=== PATIENT | male | born 1970 | race Caucasian/White ===

== ENCOUNTER 2019-04-10 20:17 | Inpatient (IN) | payer OTHER ==
[~2019-04-10 20:17] MED LIST: ISOVUE-370 76%-LOCM 1 ML ONE
[2019-04-10] MEDS ORDERED: Fentanyl 100 MCG/2 ML VIAL ONE ×2 (21:17→22:03)
[2019-04-10] MEDS ORDERED: Piperacillin/Tazobactam 3.375 GM VIAL ONE (22:03)
--- NOTE | 2019-04-10 22:38 | RAD ---
EXAM: CHEST ONE VIEW HISTORY: Sepsis. Bilateral central line attempts. COMPARISON: None FINDINGS: The cardiac silhouette and pulmonary vasculature is within normal limits. A tunneled right internal j ugular vein hemodialysis catheter is visualized with tip overlying the cavoatrial atrial junction. No pneumothorax or pleural effusion is seen. The lungs are clear. The osseous structures are intact. IMPRESSION: No acute cardiopulmonary process. No pneumothorax or pleural effusion is identified.
[2019-04-10 22:47] LABS: INR-International Normal Ratio 1.5; Prothrombin Time 17.9 SEC (12.0-14.7)
[2019-04-10 22:57] LABS: #Basophils 0.1 thou/uL (0.0-0.2); #Eosinphils 0.2 thou/uL (0.0-0.7); #Lymphocytes 1.8 thou/uL (1.20-3.40); #Monocytes 0.7 thou/uL (0.11-0.59); #Neutrophils 7.1 thou/uL (1.40-6.50); %Basophils 0.6 % (0.0-1.0); %Eosinophils 1.9 % (0.0-10.0); %Lymphocytes 18.5 % (21.0-51.0); %Monocytes 7.4 % (0.0-10.0); %Neutrophils 71.6 % (42.0-75.0); Hemoglobin 7.9 g/dL (14.0-18.0); Hypochromia SLIGHT = 6-15 cells (100X) (0-5/hpf); MDiff Complete? YES; Mean Corpuscular HGB CONC 32.6 g/dL (32.0-36.0); Mean Corpuscular Volume 73.6 fL (78.0-98.0); Mean Platelet Volume 10.6 fL (7.4-10.4); Microcytosis MODERATE=15-30 cells (100X) (0-5/hpf); Platelet Count 248 thou/uL (130-400); Platelet Morphology Comment Appears Adequate; RBC Distribution Width 21.4 % (11.5-14.5)
[2019-04-10 23:01] LABS: ALT (SGPT) 9 U/L (8-55); AST (SGOT) 17 U/L (5-34); Albumin 2.9 g/dL (3.5-5.0); Alkaline Phosphatase 100 U/L (40-110); Anion Gap 16 mmol/L (10-20); BUN (Urea Nitrogen) 59 mg/dL (8.9-20.6); Bilirubin, Total 0.6 mg/dL (0.2-1.2); Calc. Creatinine Clearance 0 mL/min (70-130); Calcium 11.1 mg/dL (7.8-10.44); Carbon Dioxide 24 mmol/L (22-29); Chloride 96 mmol/L (98-107); Estimated GFR-MDRD 10; Globulin 4.3 g/dL (2.4-3.5); Glucose 110 mg/dL (70-105); Protein, Total 7.2 g/dL (6.0-8.3); Sodium 132 mmol/L (136-145)
--- NOTE | 2019-04-10 23:44 | PDOC.FPRHP ---
- History of Present Illness Chief Complaint: CP and SOB History of Present Illness: 48-year-old male with a past medical history of diabetes on insulin, CORNELIUS, peripheral vascular disease, CAD, and hypertension. Patient was recently hospitalized for a cholecystectomy and unable to be extubated post surgery. He was intubated and sedated for quite some time at [facility]. Over this time he developed end stage renal disease, a decubitus ulcer and overall functional decline. Patient was recently diagnosed with a pulmonary embolism and started on Eliquis 5 mg b.i.d.. Today while at retirement he started to develop some chest pain and shortness of breath. He went to the nurse who then gave him nitro without checking his blood pressure. His blood pressure dropped drastically. He was brought to the emergency department where his blood pressures were not stable with systolic of 70s for quite some time. A central line was started. He had evidence of elevated troponins in the setting of ESRD. EKG showed normal sinus rhythm. lactate 2.7, hemoglobin 7.9, hematocrit 24.3. CTA showed right lower lobe pulmonary emboli. Patients blood pressures began to stabilize and to the 110's systolic. Did not require pressors. Pt c/o severe pain over his sacrum where the decubitus is located. - Allergies/Adverse Reactions Allergies Allergy/AdvReac Type Severity Reaction Status Date / Time shellfish derived Allergy Unverified 04/11/19 01:50 - Home Medications Medication Instructions Recorded Confirmed Type Albuterol Sulfate [Proair HFA] 2 puff INH Q6HR PRN 04/11/19 04/11/19 History Albuterol Sulfate [Proair 90 mcg IH 04/11/19 History Respiclick] Amlodipine [Norvasc] 10 mg PO DAILY 04/11/19 04/11/19 History Apixaban [Eliquis] 5 mg PO BID 04/11/19 04/11/19 History Carvedilol [Coreg] 25 mg PO BID 04/11/19 04/11/19 History Docusate Sodium 100 mg PO BID PRN 04/11/19 04/11/19 History Fluticasone Propionate [Flovent 110 mcg INH BID 04/11/19 04/11/19 History HFA 110 mcg] Folic Acid/Vit B Complex and C 04/11/19 History [Nephro-Douglas Tablet] Furosemide [Lasix] 40 mg PO DAILY 04/11/19 04/11/19 History Gabapentin 300 mg PO HS 04/11/19 04/11/19 History Hepatitis B Virus Vaccine/PF 20 mcg IM 04/11/19 History [Engerix-B 20 Mcg/ml Syrn] Insulin NPH Hum/Reg Insulin HM 75 unit SQ BID 04/11/19 04/11/19 History [Novolin 70-30 100 Unit/ml Vial] Ipratropium [place] 0.5 mg NEB Q6HR 04/11/19 04/11/19 History Isosorbide Mononitrate [Isosorbide 30 mg PO DAILY 04/11/19 04/11/19 History Mononitrate ER] Lactulose 10 GM/15ML Oral Yoon 30 gm PO TID PRN 04/11/19 04/11/19 History [Lactulose] Lisinopril 2.5 mg PO DAILY 04/11/19 04/11/19 History Nitroglycerin [Nitrostat] 0.4 mg SL Q5MIN PRN 04/11/19 04/11/19 History PHENYLeph/Pramoxin/Glycr/W.Pet 51 gm RC 04/11/19 History [Hemorrhoidal Cream] Prasugrel [Effient] 10 mg PO DAILY 04/11/19 04/11/19 History Sevelamer Carbonate [Renvela] 800 mg PO TID-WM 04/11/19 04/11/19 History Simethicone [Gas Relief] 80 mg PO 04/11/19 History diphenhydrAMINE [Benadryl] 04/11/19 History - History PMHx: Recent Hx stay from cholecystectomy and sepsis. He now has ESRD and a sacral decubitus ulcer. HTN, CORNELIUS, DM insulin dependent, PVD, VT, CAD PSHx: Cholecystectomy, appendectomy, vein surgery to LE's, stent placements in coronary arteries, r-ankle sx w/ hardware, amputation of R great toe. FHx: Mom: at 50 from [place]. Dad: CVA Social: Quit smoking 20 yrs ago, 40 pack year. No current etoh or drug use. 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 Incarcerated. - Review of Systems General: reports: fever/chills (chills and shivering), fatigue ENT: denies: nasal congestion Respiratory: reports: cough, shortness of breath, exercise intolerance Cardiovascular: reports: chest pain, palpitation, edema Gastrointestinal: denies: nausea, vomiting, diarrhea Skin: denies: rashes Neurological: denies: numbness, syncope - Vital signs BP: 114/61 HR: 92 RR: 23 Temp 98.8 Pox: 100% on RA Wt: 110 kg - Physical Exam Constitutional: NAD, awake, alert and oriented, well developed HEENT: normocephalic and atraumatic, PERRLA, EOMI, conjunctiva clear, no scleral icterus, grossly normal vision, grossly normal hearing, oropharynx clear -HEENT: poor dentition dry mm Neck: supple, FROM, trachea midline, no LAD, no JVD Heart: RRR, normal S1/S2 (distant heart sounds), no murmurs/rubs/gallops, pulses present -Heart: trace LE edema Lungs: CTAB, no respiratory distress, good air movement, no rales/rhonchi, no wheezing, no retractions Abdomen: soft, non-tender, bowel sounds present -Abdomen: surgical scars present Musculoskeletal: normal structure, normal tone, ROM grossly normal Neurological: no focal deficit, CN II-XII intact, normal sensation Skin: no rash/lesions, capillary refill <2 seconds Heme/Lymphatic: no unusual bruising or bleeding Psychiatric: normal mood and affect, good judgment and insight, intact recent and remote memory FMR H&P: Results - Labs Result Diagrams: 04/11/19 06:47 04/11/19 01:46 Lab results: WBC 10.0 thou/uL (4.8-10.8) 04/10/19 22:23 Hgb 7.9 g/dL (14.0-18.0) L 04/10/19 22:23 Hct 24.3 % (42.0-52.0) L 04/10/19 22:23 MCV 73.6 fL (78.0-98.0) L 04/10/19 22:23 Plt Count 248 thou/uL (130-400) 04/10/19 22:23 Neutrophils % 71.6 % (42.0-75.0) 04/10/19 22:23 Sodium 132 mmol/L (136-145) L 04/10/19 22:23 Potassium 4.0 mmol/L (3.5-5.1) 04/10/19 22:23 Chloride 96 mmol/L (98-107) L 04/10/19 22:23 Carbon Dioxide 24 mmol/L (22-29) 04/10/19 22:23 BUN 59 mg/dL (8.9-20.6) H 04/10/19 22:23 Creatinine 5.97 mg/dL (0.7-1.3) H 04/10/19 22:23 Glucose 110 mg/dL (70-105) H 04/10/19 22:23 Lactic Acid 2.7 mmol/L (0.5-2.2) H 04/10/19 22:23 Calcium 11.1 mg/dL (7.8-10.44) H 04/10/19 22:23 Total Bilirubin 0.6 mg/dL (0.2-1.2) 04/10/19 22:23 AST 17 U/L (5-34) 04/10/19 22:23 ALT 9 U/L (8-55) 04/10/19 22:23 Alkaline Phosphatase 100 U/L (40-110) 04/10/19 22:23 CK-MB (CK-2) 2.0 ng/mL (0-6.6) 04/10/19 22:23 Serum Total Protein 7.2 g/dL (6.0-8.3) 04/10/19 22:23 Albumin 2.9 g/dL (3.5-5.0) L 04/10/19 22:23 - Radiology Interpretation CT scan - chest Status: report reviewed by me (RLL Pulmonary Emboli) FMR H&P: A/P - Problem List (1) ESRD (end stage renal disease) on dialysis Current Visit: Yes Status: Acute Code(s): N18.6 - END STAGE RENAL DISEASE; Z99.2 - DEPENDENCE ON RENAL DIALYSIS (2) Symptomatic anemia Current Visit: Yes Status: Acute Code(s): D64.9 - ANEMIA, UNSPECIFIED (3) Pulmonary embolism Current Visit: Yes Status: Acute Code(s): I26.99 - OTHER PULMONARY EMBOLISM WITHOUT ACUTE COR PULMONALE (4) Hypotension Current Visit: Yes Status: Acute (5) CAD (coronary artery disease) Current Visit: Yes Status: Acute Code(s): I25.10 - ATHSCL HEART DISEASE OF [place] CORONARY ARTERY W/O ANG PCTRS (6) CORNELIUS (obstructive sleep apnea) Current Visit: Yes Status: Acute Code(s): G47.33 - OBSTRUCTIVE SLEEP APNEA ( ADULT) (PEDIATRIC) (7) Diabetes mellitus Current Visit: Yes Status: Acute Code(s): E11.9 - TYPE 2 DIABETES MELLITUS WITHOUT COMPLICATIONS - Plan 48 y/o M admitted to tele inpatient for further treatment and evaluation of PE and Hypotension. 1. Pulmonary Embolism - Recent Hx stay in [place] for cholecystectomy left the pt intubated and sedated for extended period of time. - He developed PE, sacral decubitus ulceration, and ESRD over the course of the hx stay. - PE treatment was initialed recently with Eliquis - Continue Eliquis 5 mg BID - Monitor pt closely with continuous cardiac monitoring. - CTA: Right lower lobe Pulmonary Emboli - CXR no acute process, no pneumothorax or effusion. 2. Hypotension - Pt was given Nitro by halfway nurse before checking his BP. - BP dropped drastically to sys 70's - In ED pressures were low and not rising at first, he had a central line placed by ED physician - Pressors were not initiated, as the pt's pressures stabilized sys 110's. 3. Atypical Chest Pain - Most likely etiology from the PE - Continue Eliquis - Trops 0.039, most likely elevated from decreased renal function from ESRD 4. ESRD - HD every T,TR,Sat - Dr. Marina Prepress Technician consulted, appreciate recs. - Cr. 5.97, BUN 59, K 4.0 - New onset since recent Hx. - Been on HD for approximately 2 weeks 5. Sacral Decubitus Ulcer, unable to stage - large, overlying sacrum - from recent hospitalization - Wound care consult 6. Symptomatic anemia - Hgb 6.9 - Transfused 1 unit pRBC - Will recheck 4 hours post transfusion. - Contributing factor to elevated troponins possibly. 7. DM II, uncontrolled, insulin dependent - Aggressive SII - CC diet 8. CORNELIUS - Ordered CPAP QHS 9. Hx of PVD 10. Hx of CAD, with VT - S/P X3 stents - VT last year 11. HTN - Hold home BP medications as pt is hypotensive Code Status: Full code Diet: CC DVT ppx: on eliquis Dispo: Stable, will admit to tele for further eval and treatment of PE and symptomatic anemia. FMR H&P: Upper Level - Pertinent history 48 y/o prisoner PMHx COPD, CHF, HTN, CAD, HLD, DM2, ESRD on HD T,,S presents to the ED with tachycardia and hypotension. He was recently admitted to a hospital in [place] for a month for cholecystitis with subsequent complications including sepsis and need to be intubated, a large sacral decubitus ulcer, and a PE. He reports that he was discharged yesterday and today he started getting some CP and SOB and was given a dose of nitro by the [facility], but after that he was severely hypotensive to the 70s and felt very poorly. Denies abdominal pain, N/V. Reports severe pain in his sacral region. - Pertinent findings BP: 136/68, Pulse: 89, Resp: 20, Temp: 99.3 (Oral), Pain: 10, O2 sat: 100 on Room Air PE: Gen - alert, oriented, NAD HEENT - MMM CV - RRR, no murmurs Lungs - CTAB, no wheezes Abd - nondistended, NTTP Skin - large sacral decubitus ulcer with necrotic area and surrounding purulence. No signs of surrounding erythema Labs: Hb 7.9, MCV 73.6, Na 132, BUN 59, Cr 5.97, GFR 10, PT 17.9, INR 1.5, Trop 0.039, Lactic acid 2.7 - Plan Date/Time: 04/10/19 2344 I, Candy Robins MD, PGY-3, have evaluated this patient and agree with findings/ plan as outlined by internal communications writer resident. Pertinent changes/additions are listed here. 1. Hypotension Pt hypotensive to 90s/50s upon arrival to ED. He had R femoral CVC placed to start pressors, but his BP improved spontaneously to 130s systolic. This could be 2/2 PE's that were noted again on CT scan, vs nitro that was given at [facility], vs sepsis. Sepsis less likely with pt being afebrile and no WBC count , however does have a large sacral decubitus ulcer with some purulence. -Admit to tele -Monitor BP's closely, if drop with MAP < 65 will consider starting pressors -Hold all antihypertensives overnight -Sepsis workup with BCx, procal, Vanc, Zosyn 2. PE Known dx, pt taking eliquis -Will continue eliquis 3. Sacral decubitus ulcer -Will consult wound care, may need debridement -Vanc 4. ESRD on HD Last dialysis Wednesday -Dr. Marina consulted by the ED, will get dialysis tomorrow -Avoid nephrotoxic agents 5. Anemia Unknown if chronic, but pt has CKD so could be related to this. As pt has never been here before don't know baseline. -Check iron studies, B12, folate 6. Elevated troponin Trop 0.039, likely 2/2 ESRD -Will trend 7. DM2 -Continue home insulin -SSI -Accuchecks -Diabetic diet 8. COPD -Continue home meds -Duonebs 9. CHF -Hold antihypertensives overnight, will consider restarting in AM pending BP's 10. HTN -see #9 Dispo: Admit to tele LOS: Likely greater than 2 days Addendum - Attending - Attending Attestation Date/Time: 04/11/19 1437 I personally evaluated the patient and discussed the management with Dr. Maciel I agree with the History, Examination, Assessment and Plan documented above with any addition or exceptions noted below -48-year-old male with a h/o diabetes on insulin, CORNELIUS, peripheral vascular disease, CAD, and hypertension, ESRD on HD sent from [facility] ER due to hypotension. Patient had gone to [facility] with c/o chest pain and was given NTG and subsequently had near- syncopal episode and BP was found to be markedly low. Patient was recently hospitalized for a cholecystectomy complicated by sepsis with prolonged intubation and development of a sacral decubitus ulcer and overall functional decline. Patient was also in the last week diagnosed with a pulmonary embolism and started on Eliquis 5 mg b.i.d. BP eventually responded to fluids and no pressors were needed. PMH/PSH/Meds reviewed and agree with residents documentation. BP 123/62 P105 Exam repeated by me and agree with resident's findings including large sacral decubitus ulcer with blackened central eschar and purulent drainage. Labs: WBC=10.0, H/H=7.9/24.3, Plt= 248, Na= 132, K=4.0, Cl=96, CO2=24, BUN/Cr=59/5.97, Ddfu=640, Lactic acid=2.7, AST/ALT= 17/9, trop I= 0.039 A/P: 1) Hypotension most likely secondary to NGT- now improved; continue to monitor closely, 2) PE- continue eliquis, 3) Sacral decubitus ulcer- unstageable currently due to large eschar- consult wound care and possibly surgery. 4) DM- monitor acucchecks and continue insulin, 5) ESRD- continue HD; consult nephrology.
--- NOTE | 2019-04-10 23:53 | CT ---
CT ANGIOGRAM THORAX WITH IV CONTRAST AND 3D RECONSTRUCTIONS: HISTORY: Abdominal pain post cholecystectomy. Sepsis. Hypotensive. COMPARISON: None. FINDINGS: There is a filling defect seen within a distal right lower lobe segmental as well as involving subseg mental pulmonary arteries compatible with pulmonary emboli. No additional filling defects are seen to suggest additional pulmonary emboli. The thoracic aorta is normal in caliber without evidence of an aortic dissection. Mild vascular calci fications are seen in the thoracic aorta. There are dense and significant vascular calcifications inv olving the coronary arteries. A tunneled right internal jugular vein hemodialysis catheter is noted in place with the tip at the ca voatrial junction. A tiny pericardial effusion is present. There is scattered atelectasis within the lower lobes bilaterally however no consolidation or pleural effusion is present. There is no evidence of lymphadenopathy. IMPRESSION: Right lower lobe pulmonary emboli. The above findings were discussed with Dr. Horvath in the emergency department on 04/10/2019 at 234 4 hours. CODE CR POS: OFF
--- NOTE | 2019-04-11 00:09 | CT ---
CT ABDOMEN AND PELVIS WITH IV CONTRAST: HISTORY: Abdominal pain post cholecystectomy. Sepsis. Sacral decubitus ulceration. FINDINGS: There is a tiny pericardial effusion. Vascular calcification is seen in the coronary arteries as well as involving the abdominal aorta and iliac arteries. There is minimal bibasilar atelectasis. Surgical clips are seen in the gallbladder fossa with a small amount of fluid. The area of fluid jenni ures 4.1 cm, which is likely related to postoperative changes. No defined enhancing wall or gas is se en in this region to suggest that this represents an abscess. There is a low density focus seen within the body of the spleen which is difficult to characterize on this exam. This measures 2.2 cm. This did appear to be present on a CTA of the thorax obtained at [facility] on 05/28/2018. The exact etiology is uncertain. This is difficult to further ch aracterize. The pancreas and bilateral adrenal glands have a normal CT appearance. No renal lesions are appreciat ed. The urinary bladder has a normal appearance. Loops of small bowel are normal in caliber. The appendix is not visualized but there are no secondary signs to suggest appendicitis. No enlarged lymph nodes are seen by CT size criteria. A few mildly prominent lymph nodes are seen in the periportal region. There is subcutaneous emphysema seen in the subcutaneous soft tissues posterior and just inferior to the coccyx, likely related to the patient's known decubitus ulceration. No adjacent fluid collection is seen to suggest an abscess. Small nonspecific heterogeneity in the gluteal musculature with increa sed density seen in the adipose soft tissues in the gluteal region probably related to calcification. A right common femoral vein central venous catheter is noted in place with the tip near the most prox imal external iliac vein. Degenerative changes are seen in the spine. Definite osseous destruction involving the coccyx is diff icult to determine based on this exam however if there is concern for osteomyelitis involving the ryan cyx MRI would be a better study of choice. IMPRESSION: 1. Post cholecystectomy changes with a small amount of fluid within the gallbladder fossa measuring 4 cm. No defined enhancing chang are seen, and there is no gas seen within the collection. This may b e related to postoperative changes as opposed to infection. A follow-up evaluation is recommended as clinically indicated. 2. Nonspecific hypodense lesion within the body of the spleen measuring 2.2 cm. This did appear to be present on a prior CTA chest obtained at the [facility] in 2018. 3. Decubitus ulceration in the soft tissues just posterior and inferior to the level of the coccyx. N o fluid collection is seen. Definitive osseous destruction is not identified; however, if there is a concern for osteomyelitis, MRI would be a better study of choice for further evaluation. POS: OFF
[2019-04-11] MEDS ORDERED: Fentanyl 100 MCG/2 ML VIAL ONE (01:16)
[2019-04-11] MEDS ORDERED: Acetaminophen 325 MG TAB PO PRN (01:35)
[2019-04-11] MEDS ORDERED: Bisacodyl 5 MG TAB PO PRN (01:35)
[2019-04-11] MEDS ORDERED: Ondansetron ODT 4 MG TAB PO PRN (01:35)
[2019-04-11] MEDS ORDERED: Dextrose 5% in Water 1,000 ML IV PRN (01:48)
[2019-04-11] MEDS ORDERED: Dextrose 50% Abboject 50 ML SYRINGE SLOW IVP PRN (01:48)
[2019-04-11 02:00] LABS: #Eosinphils 0.2 thou/uL (0.0-0.7); #Lymphocytes 1.7 thou/uL (1.20-3.40); #Monocytes 0.7 thou/uL (0.11-0.59); #Neutrophils 6.6 thou/uL (1.40-6.50); %Basophils 0.3 % (0.0-1.0); %Eosinophils 2.3 % (0.0-10.0); %Monocytes 7.9 % (0.0-10.0); %Neutrophils 71.5 % (42.0-75.0); Hemoglobin 6.9 g/dL (14.0-18.0); Mean Corpuscular HGB CONC 32.7 g/dL (32.0-36.0); Mean Corpuscular Volume 73.4 fL (78.0-98.0); Mean Platelet Volume 10.4 fL (7.4-10.4); Platelet Count 232 thou/uL (130-400); RBC Distribution Width 21.6 % (11.5-14.5); Red Blood Cell (RBC) Count 2.86 mill/uL (4.70-6.10); White Blood Cell (WBC) Count 9.3 thou/uL (4.8-10.8)
[2019-04-11] MEDS ORDERED: HOLD VANCOMYCIN FOR LEVEL >20 FS SCH (02:00)
[2019-04-11] MEDS ORDERED: Vancomycin HCl 1.25 GM in Sodium Chloride 0.9% 250 ML 250 ML IVPB SCH (02:00)
[2019-04-11] MEDS ORDERED: Vancomycin HCl 1.5 GM in Sodium Chloride 0.9% 250 ML 300 ML IVPB SCH (02:00)
[2019-04-11] MEDS ORDERED: Vancomycin HCl 750 MG in Sodium Chloride 0.9% 250 ML 250 ML IVPB SCH (02:00)
[2019-04-11 02:12] LABS: Iron 18 ug/dL (65-175); Iron Binding Capacity, Total 158 mcg/dL (261-462)
[2019-04-11 02:15] LABS: ALT (SGPT) 10 U/L (8-55); AST (SGOT) 18 U/L (5-34); Albumin 2.7 g/dL (3.5-5.0); Alkaline Phosphatase 95 U/L (40-110); Anion Gap 20 mmol/L (10-20); BUN (Urea Nitrogen) 63 mg/dL (8.9-20.6); Bilirubin, Total 0.6 mg/dL (0.2-1.2); Calc. Creatinine Clearance 0 mL/min (70-130); Carbon Dioxide 19 mmol/L (22-29); Chloride 96 mmol/L (98-107); Estimated GFR-MDRD 10; Globulin 4.4 g/dL (2.4-3.5); Glucose 118 mg/dL (70-105); Potassium 4.1 mmol/L (3.5-5.1); Protein, Total 7.1 g/dL (6.0-8.3); Sodium 131 mmol/L (136-145)
[2019-04-11 02:17] LABS: Troponin I 0.014 ng/mL (< 0.028)
[2019-04-11 02:24] LABS: Lactic Acid 3.3 mmol/L (0.5-2.2)
[2019-04-11] MEDS ORDERED: Morphine 2 MG/ML SYRINGE ONE ×2 (03:05→07:38)
[2019-04-11] MEDS: Morphine 2 MG/ML SYRINGE SLOW IVP PRN ×3 (03:10→20:46)
[2019-04-11 04:37] LABS: Ferritin Greater than 1683.00 ng/mL (22-322)
[2019-04-11 05:25] LABS: Troponin I 0.035 ng/mL (< 0.028)
[2019-04-11 07:06] LABS: #Basophils 0.1 thou/uL (0.0-0.2); #Eosinphils 0.2 thou/uL (0.0-0.7); #Lymphocytes 1.3 thou/uL (1.20-3.40); #Monocytes 0.7 thou/uL (0.11-0.59); #Neutrophils 7.4 thou/uL (1.40-6.50); %Basophils 0.6 % (0.0-1.0); %Eosinophils 2.5 % (0.0-10.0); %Lymphocytes 13.6 % (21.0-51.0); %Monocytes 7.5 % (0.0-10.0); %Neutrophils 75.8 % (42.0-75.0); Hemoglobin 7.8 g/dL (14.0-18.0); Mean Corpuscular HGB CONC 32.9 g/dL (32.0-36.0); Mean Corpuscular Hemoglobin 24.9 pg (27.0-31.0); Mean Corpuscular Volume 75.8 fL (78.0-98.0); Mean Platelet Volume 10.4 fL (7.4-10.4); Platelet Count 226 thou/uL (130-400); RBC Distribution Width 21.7 % (11.5-14.5); Red Blood Cell (RBC) Count 3.12 mill/uL (4.70-6.10); White Blood Cell (WBC) Count 9.7 thou/uL (4.8-10.8)
[2019-04-11 07:41] LABS: Vancomycin, Random 23.4 ug/mL (See Comment)
[2019-04-11 08:25] LABS: Troponin I 0.048 ng/mL (< 0.028)
[2019-04-11] MEDS ORDERED: Famotidine 20 MG TAB ONE (08:34)
[2019-04-11] MEDS: Famotidine 20 MG TAB PO SCH (09:54)
[2019-04-11] MEDS: Apixaban 5 MG TAB PO SCH ×2 (09:54→20:42)
[2019-04-11] MEDS ORDERED: Heparin 10,000 UNITS/1 ML VIAL ONE (10:00)
[2019-04-11] MEDS ORDERED: Morphine 2 MG/ML SYRINGE SLOW IVP SCH (11:30)
[2019-04-11] MEDS ORDERED: Simethicone Chewable 80 MG TAB PO PRN (11:35)
[2019-04-11] MEDS ORDERED: PROVENTIL INHALER 6.7 G (200 INHALATIONS) INH PRN (11:35)
[2019-04-11] MEDS ORDERED: Docusate 100 MG CAP PO PRN (11:35)
[2019-04-11 11:39] LABS: Troponin I 0.039 ng/mL (< 0.028)
--- NOTE | 2019-04-11 11:45 | CON ---
DATE OF CONSULTATION: REASON FOR CONSULT: End-stage renal disease, on maintenance hemodialysis. HISTORY OF PRESENT ILLNESS: This is a very pleasant 48-year-old gentleman, who presented to the hospital for chest pain and shortness of breath. The patient has dialysis on Wednesday, , and Wednesday. The patient had imaging done. The patient denies any nausea, vomiting, or chest pain. PAST MEDICAL HISTORY: Significant for cholecystectomy, sepsis, ESRD, decubitus ulcer, hypertension, diabetes mellitus, cholecystectomy, appendectomy, lower extremity stent placement, and coronary artery disease stent placement. FAMILY HISTORY: Negative for ESRD. ALLERGIES: REVIEWED. MEDICATIONS: Home medications list reviewed. Hospital medications list reviewed. REVIEW OF SYSTEMS: Fifteen-point review of system was performed and negative, except for positives noted above. GENERAL: HEAD: NECK: No swelling or lumps. NOSE: No epistaxis or discharge. EYES: No diplopia or pain. RESPIRATORY: CARDIOVASCULAR: GASTROINTESTINAL: /INFORMATION SYSTEMS MANAGER: MUSCULOSKELETAL: No joint pain. NEUROPSYCHIATRIC SYSTEMS: No suicidal ideation. No ideation. SKIN: Denies any rash or ulcer. CONSTITUTIONAL: No fever or chills. PHYSICAL EXAMINATION: CONSTITUTIONAL: On exam, the patient is awake and alert. VITAL SIGNS: Afebrile, pulse 70, breathing 16, and blood pressure 130/70. GENERAL APPEARANCE AND MENTAL STATUS: Fair. HEAD/NECK: Normocephalic. Atraumatic. EYES: EOMI. No deformity. EARS: Clear. No ulcers. NOSE: Intact. No lesions. MOUTH: Clear. No discharge. THROAT: Clear. No exudate. LUNGS: Clear. No crackles. CARDIAC: S1, S2. No rub. ABDOMEN: Benign. Bowel sounds positive. GENITALIA/RECTUM: Busby absent. BACK/EXTREMITIES: Edema 0+. NEUROLOGICAL: Alert and motor intact. SKIN: LYMPHATICS: LABORATORY DATA: Reviewed. ASSESSMENT AND PLAN: 1. Stage 3 chronic kidney disease. Plan dialysis. 2. Hypertension, stable. 3. Anemia, stable. 4. Medications based on glomerular filtration rate are appropriate. Job ID: [id number]
[2019-04-11 12:10] LABS: Hep B Surf Ag Non-Reactive S/CO (NonReactive)
[2019-04-11] MEDS: Piperacillin/Tazobactam 2.25 GM in Sodium Chloride 0.9% 100 ML IVPB SCH ×2 (14:00→21:00)
[2019-04-11] MEDS: Sevelamer Carbonate 800 MG TAB PO SCH ×2 (14:38→18:39)
[2019-04-11 17:46] LABS: Hypochromia SLIGHT = 6-15 cells (100X) (0-5/hpf); Microcytosis SLIGHT = 6-15 cells (100X) (0-5/hpf); Ovalocytes SLIGHT = 2-5 cells (100X) (0-1/hpf); Polychromasia SLIGHT = 2-3 cells (100X) (0-2/hpf)
[2019-04-11 17:47] LABS: Anisocytosis MODERATE=16-30 cells (100X) (0-5/hpf); Schistocytes SLIGHT = 2-5 cells (100X) (0-1/hpf)
[2019-04-11 17:48] LABS: Platelet Morphology Comment Appears Adequate; Spherocytes SLIGHT = 1-5 cells (100X) (None Seen)
[2019-04-11 17:49] LABS: Burr Cells SLIGHT = 2-5 cells (100X) (0-1/hpf)
[2019-04-11] MEDS: HumaLOG 300 UNITS/3 ML VIAL SC PRN (18:39)
[2019-04-11] MEDS: Gabapentin 300 MG CAP PO SCH (20:42)
[2019-04-11] MEDS ORDERED: Fluticasone Propionate HFA 110 MCG AER INH SCH (21:00)
[2019-04-11] MEDS ORDERED: Mometasone 100 MCG HFA INHALER INH SCH (21:00)
[2019-04-12] MEDS: Morphine 2 MG/ML SYRINGE SLOW IVP PRN ×2 (01:10→05:14)
[2019-04-12] MEDS: Piperacillin/Tazobactam 2.25 GM in Sodium Chloride 0.9% 100 ML IVPB SCH ×3 (05:09→21:48)
--- NOTE | 2019-04-12 06:18 | PDOC.FM ---
- Subjective Subjective: This morning pt is doing well, eagerly awaiting debridement. States pain is not well controlled with q4h morphine and has breakthrough pain. Denies CP, fever/ chills, n/v, diarrhea/constipation. Did get up to use bathroom yesterday and had sacral pain and numbness. Tolerating PO well prior to NPO for surgery. - Objective MAR Reviewed: Yes Vital Signs & Weight: Vital Signs (12 hours) Temp Pulse Resp BP Pulse Ox 04/12/19 04:00 98 F 88 18 143/77 H 99 04/12/19 01:00 98 F 90 18 145/82 H 99 04/11/19 20:00 97 04/11/19 19:21 98.7 F 110 H 18 145/79 H 97 04/11/19 18:48 102 H 12 Weight Weight 117.934 kg Result Diagrams: 04/12/19 06:13 04/12/19 06:13 Phys Exam - Physical Examination Constitutional: NAD (resting comfortably) HEENT: PERRLA, moist MMs Neck: supple Respiratory: no wheezing, no rales, no rhonchi, clear to auscultation bilateral Cardiovascular: RRR, no significant murmur, no rub Gastrointestinal: soft, non-tender, no distention, positive bowel sounds Musculoskeletal: no edema Neurological: non-focal Psychiatric: normal affect, A&O x 3 Deviation from normal: sacral decubitus ulcer Dx/Plan (1) CAD (coronary artery disease) Code(s): I25.10 - ATHSCL HEART DISEASE OF [place] CORONARY ARTERY W/O ANG PCTRS Status: Acute (2) Diabetes mellitus Code(s): E11.9 - TYPE 2 DIABETES MELLITUS WITHOUT COMPLICATIONS Status: Acute (3) ESRD (end stage renal disease) on dialysis Code(s): N18.6 - END STAGE RENAL DISEASE; Z99.2 - DEPENDENCE ON RENAL DIALYSIS Status: Acute (4) Pulmonary embolism Code(s): I26.99 - OTHER PULMONARY EMBOLISM WITHOUT ACUTE COR PULMONALE Status : Acute (5) Symptomatic anemia Code(s): D64.9 - ANEMIA, UNSPECIFIED Status: Acute - Plan Plan: 48 y/o M h/o PE, ESRD on HD, CHF, DMII admitted to medical inpatient for further treatment and evaluation of PE and Hypotension and decubitus ulcer. #Sacral Decubitus Ulcer, unable to stage - large, overlying sacrum. Large eschar - Push and drainage fro edges, TTP, no surrounding erythema - Will cont vanc and zosyn - elevated ESR and CRP - MRI pelvis for eval of osteo pending - Dr. Allred, gen surg, debridement today, apprec recs and assistance - Wound care consult - pain control with morphine q4h with q2h prn #Symptomatic anemia, stable - Hgb 6.9 -> 7.8 - s/p 1 unit pRBC - no s/s acute blood loss, VSS, will continue to monitor #Pulmonary Embolism - Recent Hx stay in [place] for cholecystectomy, pt intubated and sedated for extended period of time. - Developed PE, sacral decubitus ulceration over the course of stay. - PE treatment was initialed recently with Eliquis, will continue 5 mg BID - CTA: Right lower lobe Pulmonary Emboli - CXR no acute process, no pneumothorax or effusion. #Hypotension, resolved - Pt was given Nitro by long-term nurse. BP dropped drastically to sys 70's - In ED pressures were low and not rising at first, he had a right femoral central line placed by ED physician - Pressors were not initiated, as the pt's pressures stabilized sys 110's. - currently pt hypertensive #Hypercalcemia and hypoalbumin - likely 2/2 ESRD - will check PTH, prealb, vit d, and phos #HTN - initially held 2/2 hypotension, will restart slowly with coreg and monitor - cont to hold imdur, lisinopril, and norvasc - will cont to monitor #Atypical Chest Pain - Most likely etiology from the PE - Continue Eliquis - Indeterminate trops 2/2 ESRD, trended and stable, no acute AKG changes # ESRD on HD - HD every T,TR,Sat. On HD since 2017 - Dr. Marina Shank Sorter consulted, will cont dialysis, appreciate recs. - Monitoring lytes #DM II, insulin dependent - Hyperglycemia protocol, SSI, ACHS accuchecks - CC diet #CORNELIUS - CPAP QHS #Hx of CAD, with OR - S/P X3 stents - OR in 2018 - cont effient, renvela and lasix Code Status: Full code Diet: CC DVT ppx: on eliquis Dispo: Stable, admitted to medical inpatient. Debridement today. MRI pending. Cont abx. Anticipate hospitalization 4-5 days. Addendum - Attending - Attending Attestation Date/Time: 04/12/19 1157 I personally evaluated the patient and discussed the management with Dr. Brunilda Navarro I agree with the History, Examination, Assessment and Plan documented above with any addition or exceptions noted below. Patient to OR this AM for debridement sacral pressure ulcer. Patient for continued dialysis IV vancomycin/Zosyn pending culture results and proceed with MRI r/o osteomyelitis. For continued HD and rec d/c femoral line if no longer needed. Patient with ESRD on Apixaban 5 mg bid will check XA activity level to trend for continued treatment of PE.
[2019-04-12 07:01] LABS: #Basophils 0.1 thou/uL (0.0-0.2); #Eosinphils 0.3 thou/uL (0.0-0.7); #Lymphocytes 1.4 thou/uL (1.20-3.40); #Monocytes 0.9 thou/uL (0.11-0.59); #Neutrophils 5.9 thou/uL (1.40-6.50); %Basophils 0.7 % (0.0-1.0); %Eosinophils 3.4 % (0.0-10.0); %Lymphocytes 16.5 % (21.0-51.0); %Monocytes 10.3 % (0.0-10.0); %Neutrophils 69.1 % (42.0-75.0); Hemoglobin 7.6 g/dL (14.0-18.0); Mean Corpuscular HGB CONC 32.5 g/dL (32.0-36.0); Mean Corpuscular Hemoglobin 24.5 pg (27.0-31.0); Mean Corpuscular Volume 75.5 fL (78.0-98.0); Mean Platelet Volume 10.1 fL (7.4-10.4); Platelet Count 243 thou/uL (130-400); RBC Distribution Width 20.8 % (11.5-14.5); Red Blood Cell (RBC) Count 3.09 mill/uL (4.70-6.10); White Blood Cell (WBC) Count 8.5 thou/uL (4.8-10.8)
[2019-04-12 07:14] LABS: ALT (SGPT) 11 U/L (8-55); AST (SGOT) 17 U/L (5-34); Albumin 2.8 g/dL (3.5-5.0); Alkaline Phosphatase 103 U/L (40-110); Anion Gap 16 mmol/L (10-20); BUN (Urea Nitrogen) 31 mg/dL (8.9-20.6); Bilirubin, Total 0.5 mg/dL (0.2-1.2); Calc. Creatinine Clearance 40 mL/min (70-130); Calcium 10.7 mg/dL (7.8-10.44); Carbon Dioxide 27 mmol/L (22-29); Chloride 101 mmol/L (98-107); Estimated GFR-MDRD 17; Globulin 4.4 g/dL (2.4-3.5); Glucose 122 mg/dL (70-105); Potassium 3.5 mmol/L (3.5-5.1); Protein, Total 7.2 g/dL (6.0-8.3); Sodium 140 mmol/L (136-145)
[2019-04-12] MEDS: Sevelamer Carbonate 800 MG TAB PO SCH ×3 (07:28→16:14)
[2019-04-12] MEDS: Carvedilol 25 MG TAB PO SCH ×2 (07:28→20:34)
[2019-04-12] MEDS: Furosemide 40 MG TAB PO SCH (07:29)
[2019-04-12] MEDS: Famotidine 20 MG TAB PO SCH (07:29)
[2019-04-12] MEDS: Prasugrel 10 MG TAB PO SCH (07:29)
[2019-04-12] MEDS: Folic Acid/Vit B Comp W-C PO SCH (07:30)
[2019-04-12] MEDS: Apixaban 5 MG TAB PO SCH ×2 (07:30→20:34)
[2019-04-12 07:36] LABS: Hypochromia MODERATE=16-30 cells (100X) (0-5/hpf); MDiff Complete? YES; Microcytosis MODERATE=15-30 cells (100X) (0-5/hpf); Ovalocytes SLIGHT = 2-5 cells (100X) (0-1/hpf); Platelet Morphology Comment Appears Adequate; Polychromasia SLIGHT = 2-3 cells (100X) (0-2/hpf)
--- NOTE | 2019-04-12 08:38 | PRG ---
DATE OF SERVICE: 04/12/2019 SUBJECTIVE: A 48-year-old gentleman being seen for end-stage renal disease. The patient denied nausea, vomiting, or chest pain. OBJECTIVE: CONSTITUTIONAL: The patient is awake and alert. VITAL SIGNS: Pulse 87, breathing 16, and blood pressure 115/68. GENERAL APPEARANCE AND MENTAL STATUS: Fair. HEAD/NECK: Normocephalic. Atraumatic. EYES: EOMI. No deformity. EARS: Clear. No ulcers. NOSE: Intact. No lesions. MOUTH: Clear. No discharge. THROAT: Clear. No exudate. LUNGS: Clear. No crackles. CARDIAC: S1, S2. No rub. ABDOMEN: Benign. Bowel sounds positive. GENITALIA/RECTUM: Busby absent. BACK/EXTREMITIES: Edema 0+. NEUROLOGICAL: Alert and motor intact. SKIN: LYMPHATICS: LABORATORY DATA: Hemoglobin 7.6. ASSESSMENT AND PLAN: Stage 3 chronic kidney disease, plan dialysis tomorrow. Hypertension, stable. Anemia, recommend transfusion of 1 unit with dialysis tomorrow. Job ID: [id number]
[2019-04-12] MEDS ORDERED: Fentanyl 100 MCG/2 ML VIAL ONE ×3 (08:48→11:03)
[2019-04-12] MEDS ORDERED: Amlodipine 10 MG TAB PO SCH (09:00)
[2019-04-12] MEDS ORDERED: Morphine 2 MG/ML SYRINGE SLOW IVP PRN (09:34)
[2019-04-12] MEDS: Morphine 2 MG/ML SYRINGE SLOW IVP SCH ×4 (10:00→20:33)
[2019-04-12] MEDS ORDERED: PHENYLEPHRINE-NS 100 MCG/ML 10 ML SYRINGE ONE ×2 (10:23→16:22)
[2019-04-12] MEDS ORDERED: Acetaminophen/Codeine 30-300mg Tablet PO PRN (10:30)
[2019-04-12] MEDS ORDERED: Promethazine HCl 25 MG/ML VIAL IM PRN (10:30)
[2019-04-12] MEDS ORDERED: HYDROmorphone 2 MG/ML VIAL SLOW IVP PRN (10:30)
[2019-04-12] MEDS ORDERED: PACU-Morphine 4MG/ML VIAL SLOW IVP PRN (10:30)
[2019-04-12] MEDS ORDERED: Promethazine HCl 25 MG/ML VIAL SLOW IVP PRN (10:30)
[2019-04-12] MEDS ORDERED: Ondansetron HCl/PF 4 MG/2 ML Vial IVP PRN (10:30)
[2019-04-12] MEDS ORDERED: Promethazine HCl 25 MG/ML VIAL ONE (11:32)
[2019-04-12] MEDS ORDERED: Ondansetron PF 4 MG/2 ML Vial ONE (11:33)
--- NOTE | 2019-04-12 11:43 | OP ---
DATE OF PROCEDURE: 04/12/2019 PREOPERATIVE DIAGNOSIS: Sacral decubitus ulcer. POSTOPERATIVE DIAGNOSIS: A 12 x 16 x 3.2 cm stage 4 sacral decubitus ulcer. PROCEDURE PERFORMED: Excisional debridement of 12 x 16 x 3.2 cm stage 4 sacral decubitus ulcer. ANESTHESIA: General endotracheal. ESTIMATED BLOOD LOSS: 50 mL. FLUIDS GIVEN: 250 mL crystalloids. COUNTS: Sponge and instrument counts were verified as correct x2. COMPLICATIONS: None apparent at the time of operation. INDICATIONS FOR OPERATION: A 48-year-old man with history of chronic kidney failure, dialysis dependent, who has developed multiple decubitus. Large sacral decubitus ulcers noted with large eschar formation. There was some purulence around the wound edges. Decision was made to bring the patient to the operating room for excisional debridement. Findings are consistent with a stage 4, 12 x 16 x 3.2 cm infected sacral decubitus ulcer. DESCRIPTION OF PROCEDURE: Informed consent was obtained from the patient, who was brought to the operating room and placed in supine position. Following general anesthesia, the patient was placed in a prone yonatan-knife position. Both gluteal folds and sacrum were widely and sterilely prepped and draped in usual fashion. The sacral decubitus ulcer was elliptically incised using a scalpel, alternated with cautery and Mueller scissors. Necrotic tissues were sharply debrided down to muscle. There was a necrotic muscle also, which were sharply debrided down to viable tissue. Bleeding points were controlled using cautery. Wound bed was then irrigated with saline. Wound was temporary closed using wound VAC. The patient tolerated the operation without any apparent complication and was returned to the recovery room in satisfactory condition. Job ID: [id number]
--- NOTE | 2019-04-12 12:03 | CON ---
DATE OF CONSULTATION: 04/11/2019 REQUESTING PHYSICIAN: Dr. Cedric Navarro. HISTORY OF PRESENT ILLNESS: A 48-year-old man, an inmate of a correctional facility. The patient was brought to the emergency department yesterday with complaint of chest pain and shortness of breath. Acute coronary syndrome has been excluded. Workup however revealed a possible small pulmonary embolus. Additionally, physical examination revealed a large sacral decubitus ulcer, for which I have been asked to evaluate the patient. At the time of my evaluation, the patient just completed his dialysis treatment. He denied any abdominal pain, fever, or chills. PAST MEDICAL HISTORY: Significant for end-stage renal disease, dialysis dependent; severe coronary artery disease; peripheral vascular disease; type 2 diabetes mellitus; as well as essential hypertension. PAST SURGICAL HISTORY: Pertinent for coronary angiography with stenting, the patient has also had lower extremity angiography with stenting. He is recently status post laparoscopic cholecystectomy, which was complicated by postoperative respiratory failure requiring prolonged mechanical ventilator support. Additionally, he is status post appendectomy. SOCIAL HISTORY: He is an inmate of a correctional facility. He has approximately greater than [id number] cigarette smoking. He has not smoked over the last 20 years nevertheless. He denies any ethanol or illicit drug abuse, although he previously indulged in intravenous methamphetamine. PREHOSPITALIZATION MEDICATIONS: Include; 1. Isosorbide mononitrate 30 mg p.o. daily. 2. Insulin NPH 75 units subcutaneously b.i.d. 3. Lactulose 30 mg p.o. t.i.d. 4. Lisinopril 2.5 mg p.o. daily. 5. Amlodipine 10 mg p.o. daily. 6. Coreg 25 mg p.o. b.i.d. 7. Eliquis 5 mg p.o. b.i.d. 8. Gabapentin 300 mg p.o. at bedtime. 9. Renvela 800 mg p.o. t.i.d. 10. Furosemide 40 mg p.o. daily. ALLERGIES: THE PATIENT DENIES ANY KNOWN DRUG ALLERGIES. REVIEW OF SYSTEMS: Ten-point review of systems essentially unremarkable except as stated in past medical history and chief complaint. PHYSICAL EXAMINATION: GENERAL: Reveals a 48-year-old man, who is awake and alert, complaining of generalized pain especially in his sacrum and chest wall. He otherwise appears to be in no acute distress at the time of my evaluation. VITAL SIGNS: Include blood pressure 122/69, pulse 103, respiratory rate is 18, temperature 99.5 degrees Fahrenheit, and oxygen saturation 93% on room air. HEENT: Reveals normocephalic and atraumatic. HEART: Reveals regular rate with mild sinus tachycardia. No murmurs or gallops auscultated. LUNGS: Clear to auscultation bilaterally. Breathing, regular and nonlabored. ABDOMEN: Soft, nontender, nondistended. EXTREMITIES: Reveals 2+ radial and pedal pulses bilaterally. He has ulceration of the medial aspect of the index finger on the right. He also has ulceration of the palmar surface of the right hand with some dry eschar present. He has cellulitis of the lateral right ankle and a dry eschar of the right heel. There is also a dry eschar of the left heel. At the sacrum, there is a 12 x 15 cm sacral decubitus ulcer with large dry eschar. There is gross purulence from the edges of the wound. LABORATORY FINDINGS: Includes a CBC with 9700 white blood cells, hemoglobin and hematocrit 7.8 and 23.7 respectively, platelet count is 226,000. Metabolic profile; sodium 131, potassium 4.1, chloride is 96, bicarb 19, BUN 63, creatinine is 6.07, glucose 118 and this is predialysis. IMPRESSION: 12 x 15 cm sacral decubitus ulcer. PLAN: 1. Excisional debridement of ulcer, at which time we will stage the wound. 2. Above findings and plan have been discussed with the patient. 3. I advised the patient of the risks and benefits of proposed surgery to include, but not limited to bleeding, infection, need for additional surgery. 4. I advised the patient that there is a possibility that this wound will heal in a delayed fashion given his comorbidities. 5. Above findings and plan discussed with the patient, who indicates understanding information given. 6. I have answered his questions. Job ID: [id number]
[2019-04-12] MEDS: Acetaminophen/Codeine 30-300mg Tablet PO PRN (14:08)
[2019-04-12] MEDS ORDERED: FLU VACC QS2019-20(6MOS UP)/PF 60 MCG/0.5 ML SYRINGE IM ONE (15:00)
[2019-04-12 15:15] LABS: Phosphorus 6.5 mg/dL (2.3-4.7)
[2019-04-12] MEDS ORDERED: ePHEDrine 50 MG/ML VIAL ONE (16:22)
[2019-04-12] MEDS ORDERED: Lidocaine 1% PF 5 ML VIAL ONE (16:22)
[2019-04-12] MEDS ORDERED: Esmolol 100 MG/10 ML VIAL ONE (16:22)
[2019-04-12] MEDS ORDERED: PROPOFOL 200 MG/20 ML VIAL ONE (16:22)
[2019-04-12] MEDS ORDERED: Rocuronium Bromide 10 MG/ML (10ML VIAL) ONE (16:22)
[2019-04-12] MEDS ORDERED: Glycopyrrolate 0.2 MG/ML 5 ML SYRINGE ONE (16:22)
[2019-04-12] MEDS: Mometasone 100 MCG HFA INHALER INH SCH (20:07)
[2019-04-12] MEDS: Gabapentin 300 MG CAP PO SCH (20:34)
[2019-04-13] MEDS: Morphine 2 MG/ML SYRINGE SLOW IVP SCH ×6 (00:27→21:20)
[2019-04-13] MEDS: Piperacillin/Tazobactam 2.25 GM in Sodium Chloride 0.9% 100 ML IVPB SCH ×3 (05:14→21:22)
[2019-04-13] MEDS: HumaLOG 300 UNITS/3 ML VIAL SC PRN ×4 (05:23→21:39)
--- NOTE | 2019-04-13 05:51 | PDOC.FM ---
- Subjective Subjective: Doing well this morning. Tolerated debridement well without any acute events. Denies any fever/chills, Cp, SOB, n/v, d/c. He is tolerating PO well. Moderate sacral pain but much better control with pain regime. Getting dialysis this morning. - Objective MAR Reviewed: Yes Vital Signs & Weight: Vital Signs (12 hours) Temp Pulse Resp BP Pulse Ox 04/13/19 00:10 98.6 F 76 20 132/72 04/12/19 20:00 98.9 F 81 18 114/65 97 Weight Admit Weight 117.934 kg Weight 117.934 kg I&O: 04/11/19 04/12/19 04/13/19 06:59 06:59 06:59 Intake Total 570 1000 Output Total 200 Balance 570 800 Result Diagrams: 04/13/19 05:20 04/13/19 05:20 Phys Exam - Physical Examination Constitutional: NAD (resting comfortably) HEENT: PERRLA, moist MMs Neck: supple Respiratory: no wheezing, no rales, no rhonchi, clear to auscultation bilateral Cardiovascular: RRR, no significant murmur, no rub Gastrointestinal: soft, non-tender, no distention, positive bowel sounds sacral wound vac in place - serosanguinous fluid Neurological: non-focal, normal sensation, moves all 4 limbs Psychiatric: normal affect, A&O x 3 Deviation from normal: multiple healing ulcers on hands and feet Dx/Plan (1) CAD (coronary artery disease) Code(s): I25.10 - ATHSCL HEART DISEASE OF [place] CORONARY ARTERY W/O ANG PCTRS Status: Acute (2) Diabetes mellitus Code(s): E11.9 - TYPE 2 DIABETES MELLITUS WITHOUT COMPLICATIONS Status: Acute (3) ESRD (end stage renal disease) on dialysis Code(s): N18.6 - END STAGE RENAL DISEASE; Z99.2 - DEPENDENCE ON RENAL DIALYSIS Status: Acute (4) Pulmonary embolism Code(s): I26.99 - OTHER PULMONARY EMBOLISM WITHOUT ACUTE COR PULMONALE Status : Acute (5) Symptomatic anemia Code(s): D64.9 - ANEMIA, UNSPECIFIED Status: Acute - Plan Plan: 48 y/o M h/o PE, ESRD on HD, CHF, DMII admitted to medical inpatient for further treatment and evaluation of PE and Hypotension and decubitus ulcer. #Sacral Decubitus Ulcer, stage 4, s/p debridement POD#1 - Dr. Allred, gen surg, debridement on 04/13/19, stage 4 ulcer, wound vac in place - serosanguinous fluid, apprec recs and assistance - Will cont vanc and zosyn - elevated ESR and CRP - MRI pelvis for eval of osteo pending - Wound care consulted - pain well-controlled with current regime #Symptomatic anemia, stable - Hgb 6.9 -> 7.6 - s/p 1 unit pRBC at admission - no s/s acute blood loss, VSS, will continue to monitor #Pulmonary Embolism - Recent Hx stay in [place] for cholecystectomy, pt intubated and sedated for extended period of time. - Developed PE, sacral decubitus ulceration over the course of stay. - PE treatment was initialed recently with Eliquis, will continue 5 mg BID, Xa 2.40 - CTA: Right lower lobe Pulmonary Emboli - CXR no acute process, no pneumothorax or effusion. #Hypotension, resolved - Pt was given Nitro by shelter nurse. BP dropped drastically to sys 70's - In ED pressures were low and not rising at first, he had a right femoral central line placed by ED physician - Pressors were not initiated, as the pt's pressures stabilized sys 110's. - will d/c fem line today #Hypercalcemia, hypoalbumin, hyerphosphatemia - likely 2/2 ESRD - Corrected Ca 12.3 this AM. PTH low at 15, prealbumin 10, phos 6.5, vit D 8.3 - will order PTrp and 1-25 vit D for further assessment - on Renvela, will add vit d 50,000u q7d #HTN - initially held 2/2 hypotension, will restarted coreg, BP stable at 110/70s, continue to monitor - cont to hold imdur, lisinopril, and norvasc #Atypical Chest Pain - Most likely etiology from the PE - Continue Eliquis - Indeterminate trops 2/2 ESRD, trended and stable, no acute EKG changes # ESRD on HD - HD every T,TR,Sat. On HD since 2017 - Dr. Marina [facility] [employer] consulted, will cont dialysis, appreciate recs. - Monitoring lytes #DM II, insulin dependent - Hyperglycemia protocol, SSI, ACHS accuchecks - CC diet #CORNELIUS - CPAP QHS #Hx of CAD, with [place] - S/P X3 stents - [place] in 2018 - cont effient and lasix Code Status: Full code Diet: CC DVT ppx: eliquis for PE Dispo: Stable, admitted to medical inpatient. Debridement POD#1, sacral MRI pending. Cont abx. Anticipate hospitalization 5-7 days. Addendum - Attending - Attending Attestation Date/Time: 04/13/19 1715 I personally evaluated the patient and discussed the management with Dr. Navarro I agree with the History, Examination, Assessment and Plan documented above with any addition or exceptions noted below. Hypercalcemia w/u not consistent with ESRD concern occult malignancy.
[2019-04-13 05:54] LABS: #Basophils 0.1 thou/uL (0.0-0.2); #Eosinphils 0.4 thou/uL (0.0-0.7); #Lymphocytes 1.4 thou/uL (1.20-3.40); #Monocytes 0.9 thou/uL (0.11-0.59); #Neutrophils 8.4 thou/uL (1.40-6.50); %Basophils 0.6 % (0.0-1.0); %Eosinophils 3.4 % (0.0-10.0); %Lymphocytes 12.9 % (21.0-51.0); %Monocytes 7.8 % (0.0-10.0); %Neutrophils 75.3 % (42.0-75.0); Hemoglobin 7.6 g/dL (14.0-18.0); Mean Corpuscular HGB CONC 31.6 g/dL (32.0-36.0); Mean Corpuscular Hemoglobin 24.2 pg (27.0-31.0); Mean Corpuscular Volume 76.5 fL (78.0-98.0); Mean Platelet Volume 9.5 fL (7.4-10.4); Platelet Count 281 thou/uL (130-400); Red Blood Cell (RBC) Count 3.14 mill/uL (4.70-6.10); White Blood Cell (WBC) Count 11.1 thou/uL (4.8-10.8)
[2019-04-13 06:07] LABS: ALT (SGPT) 11 U/L (8-55); AST (SGOT) 18 U/L (5-34); Albumin 2.8 g/dL (3.5-5.0); Alkaline Phosphatase 97 U/L (40-110); Anion Gap 14 mmol/L (10-20); BUN (Urea Nitrogen) 42 mg/dL (8.9-20.6); Bilirubin, Total 0.5 mg/dL (0.2-1.2); Calc. Creatinine Clearance 30 mL/min (70-130); Calcium 11.3 mg/dL (7.8-10.44); Carbon Dioxide 28 mmol/L (22-29); Chloride 99 mmol/L (98-107); Estimated GFR-MDRD 13; Globulin 4.5 g/dL (2.4-3.5); Glucose 148 mg/dL (70-105); Potassium 4.6 mmol/L (3.5-5.1); Protein, Total 7.3 g/dL (6.0-8.3); Sodium 136 mmol/L (136-145)
[2019-04-13] MEDS: Mometasone 100 MCG HFA INHALER INH SCH ×2 (06:47→19:38)
[2019-04-13 07:52] LABS: Vancomycin, Random 11.1 ug/mL (See Comment)
[2019-04-13] MEDS: Vancomycin HCl 1 GM in Premix Bag 1 BAG IVPB SCH (10:18)
[2019-04-13] MEDS ORDERED: Heparin 1,000 UNITS/ML VIAL ONE (11:11)
[2019-04-13] MEDS: Sevelamer Carbonate 800 MG TAB PO SCH ×3 (11:23→17:49)
--- NOTE | 2019-04-13 11:39 | PRG ---
DATE OF SERVICE: SUBJECTIVE: A 48-year-old gentleman being seen for end-stage kidney disease. The patient denied nausea, vomiting, or chest pain. OBJECTIVE: GENERAL: The patient is awake and alert. VITAL SIGNS: Pulse 75, breathing 16, blood pressure 132/70. GENERAL APPEARANCE AND MENTAL STATUS: Fair. HEAD/NECK: Normocephalic. Atraumatic. EYES: EOMI. No deformity. EARS: Clear. No ulcers. NOSE: Intact. No lesions. MOUTH: Clear. No discharge. THROAT: Clear. No exudate. LUNGS: Clear. No crackles. CARDIAC: S1, S2. No rub. ABDOMEN: Benign. Bowel sounds positive. GENITALIA/RECTUM: Busby absent. BACK/EXTREMITIES: Edema 0+. NEUROLOGICAL: Alert and motor intact. SKIN: LYMPHATICS: LABORATORY DATA: Labs showed hemoglobin 7.6. IMPRESSION: Stage 3 chronic kidney disease, plan hemodialysis. Hypertension, stable. Anemia, would recommend transfusion 1 unit of packed red blood cells. Job ID: [id number]
[2019-04-13] MEDS: Apixaban 5 MG TAB PO SCH ×2 (11:54→21:20)
[2019-04-13] MEDS: Carvedilol 25 MG TAB PO SCH ×2 (11:54→21:20)
[2019-04-13] MEDS: Prasugrel 10 MG TAB PO SCH (11:54)
[2019-04-13] MEDS: Furosemide 40 MG TAB PO SCH (11:54)
[2019-04-13] MEDS: Folic Acid/Vit B Comp W-C PO SCH (11:54)
[2019-04-13] MEDS: Ergocalciferol 1.25 MG(50,000 UNITS) CAP PO SCH (12:02)
[2019-04-13 14:15] LABS: Reference Lab Name LABCORP
[2019-04-13 14:25] LABS: Syphilis Antibody Nonreactive (Nonreactive)
[2019-04-13 14:26] LABS: HIV (1/2) Antibody/Antigen Non-Reactive (NonReactive); HIV 1/2 INDEX 0.09 S/CO (<1.00); Hep C IgG Ab Non-Reactive (NonReactive); Hep C Index 0.15 S/CO (0-0.79)
[2019-04-13] MEDS: Acetaminophen/Codeine 30-300mg Tablet PO PRN (15:19)
[2019-04-13] MEDS: Gabapentin 300 MG CAP PO SCH (21:20)
[2019-04-14] MEDS: Ondansetron PF 4 MG/2 ML Vial IVP PRN (00:06)
[2019-04-14] MEDS: Acetaminophen/Codeine 30-300mg Tablet PO PRN (00:11)
[2019-04-14] MEDS: Morphine 2 MG/ML SYRINGE SLOW IVP SCH (01:58)
[2019-04-14] MEDS ORDERED: Morphine 2 MG/ML SYRINGE SLOW IVP SCH (02:00)
[2019-04-14] MEDS: Morphine 4 MG/ML VIAL SLOW IVP SCH ×6 (02:07→22:16)
[2019-04-14] MEDS ORDERED: Morphine 4 MG/ML VIAL SLOW IVP SCH (05:00)
--- NOTE | 2019-04-14 05:52 | PDOC.FM ---
- Subjective Subjective: Pt doing well this morning, no acute events overnight. Pt states pain is now well-controlled. Voiding without difficulty. Endorses constipation with last BM 04/09, soap suds overnight did not help. On further questioning, pt states he was told a few years ago by a doctor he had a "blood disrder" that was causing anemia but does not remember the details and never followed up. Denies any fever /chills, n/v, sob. States CP has resolved from admission. Does endorse lightheadedness and dizziness with sitting upright in bed. - Objective MAR Reviewed: Yes Vital Signs & Weight: Vital Signs (12 hours) Temp Pulse Resp BP Pulse Ox 04/14/19 04:00 98.3 F 83 20 122/71 92 L 04/14/19 00:00 98.8 F 87 20 114/71 95 04/13/19 20:00 95 04/13/19 19:38 99.4 F 85 20 122/58 L 95 Weight Admit Weight 117.934 kg Weight 117.934 kg I&O: 04/12/19 04/13/19 04/14/19 06:59 06:59 06:59 Intake Total 570 1000 Output Total 200 Balance 570 800 Result Diagrams: 04/14/19 06:30 04/14/19 06:30 Phys Exam - Physical Examination Constitutional: NAD (resting comfortably in bed) HEENT: PERRLA, moist MMs Neck: supple Respiratory: no wheezing, no rales, no rhonchi, clear to auscultation bilateral Cardiovascular: RRR, no significant murmur, no rub Gastrointestinal: soft, non-tender, no distention, positive bowel sounds Musculoskeletal: no edema, pulses present Neurological: non-focal, normal sensation Psychiatric: normal affect, A&O x 3 Deviation from normal: wound vac in place on sacral wound. Foot ulcers with dressing, clean/dry. -: R femoral CL in place, clean and dry. Failure AV fistula on left upper arm. Dx/Plan (1) CAD (coronary artery disease) Code(s): I25.10 - ATHSCL HEART DISEASE OF [place] CORONARY ARTERY W/O ANG PCTRS Status: Acute (2) Diabetes mellitus Code(s): E11.9 - TYPE 2 DIABETES MELLITUS WITHOUT COMPLICATIONS Status: Acute (3) ESRD (end stage renal disease) on dialysis Code(s): N18.6 - END STAGE RENAL DISEASE; Z99.2 - DEPENDENCE ON RENAL DIALYSIS Status: Acute (4) Pulmonary embolism Code(s): I26.99 - OTHER PULMONARY EMBOLISM WITHOUT ACUTE COR PULMONALE Status : Acute (5) Symptomatic anemia Code(s): D64.9 - ANEMIA, UNSPECIFIED Status: Acute - Plan Plan: 48 y/o M h/o PE, ESRD on HD, CHF, DMII admitted to medical inpatient for further treatment and evaluation of PE, Hypotension, sx anemia, and decubitus ulcer. #Sacral Decubitus Ulcer, stage 4, s/p debridement POD#2 - Dr. Allred, gen surg, debridement on 04/13/19, stage 4 ulcer, wound vac in place - serosanguinous fluid, apprec recs and assistance - Will cont vanc and zosyn - elevated ESR and CRP - MRI pelvis for eval of osteo pending - Wound care consulted - pain well-controlled with current regime #Symptomatic anemia, worsening - Hgb 6.9 -> 7.6 -> 6.8 - s/p 1 unit pRBC at admission - no s/s acute blood loss, VSS, does endorse sxs of dizziness/lightheadedness - will transfuse 1u pRBC this AM #Pulmonary Embolism - Recent stay in [place] for cholecystectomy, pt intubated and sedated for extended period of time. - Developed PE, sacral decubitus ulceration over the course of stay. - Eliquis 5 mg BID - CTA: Right lower lobe Pulmonary Emboli #Hypotension, resolved - Pt given Nitro by residential nurse. BP dropped drastically to sys 70's - In ED pressures were low and not rising at first, right femoral central line placed by ED physician - Pressors not initiated, as pressures stabilized sys 110's. - will cont fem line as no other IV access was able to be obtained #Hypercalcemia, hypoalbumin, hyerphosphatemia - Corrected Ca 12.3 this AM. PTH low at 15, prealbumin 10, phos 6.5, vit D 8.3 - Not consistent with ESRD secondary hyperparathyroidism, concern for malignant hypercalcemia - PTHrP, 1-25 vit D, SPEP, UPEP, and urine free light chains pending - CT chest, abd, pelvis - no significant lymphadenopathy or masses noted other than vague density in spleen, will discuss case with radiology - on Renvela, will add vit d 50,000u q7d #Chronic Constipation - Last BM Wednesday - s/p soap suds enema - Will add miralax, sennokot, and x1 lactulose this AM #HTN - initially held 2/2 hypotension, restarted coreg, BP stable at 110/70s, continue to monitor - cont to hold imdur, lisinopril, and norvasc #Atypical Chest Pain, resolved - likely 2/2 PE - Continue Eliquis - Indeterminate trops 2/2 ESRD, trended and stable, no acute EKG changes # ESRD on HD - HD every T,TR,Sat. On HD since 2017 - Dr. Marina Counter Caser consulted, will cont dialysis, appreciate recs. - Monitoring lytes #DM II, insulin dependent - Hyperglycemia protocol, SSI, ACHS accuchecks - CC diet #CORNELIUS - CPAP QHS, pt refused overnight #Hx of CAD, with [place] - S/P X3 stents - [place] in 2018 - cont effient and lasix Code Status: Full code Diet: CC with renal high protein DVT ppx: eliquis for PE Dispo: Stable, admitted to medical inpatient. Debridement POD#2, sacral MRI pending. Malignancy workup for hypercalcemia continuing. Cont abx. Tranfuse 1u pRBC today. Anticipate hospitalization 5-7 days. Addendum - Attending - Attending Attestation Date/Time: 04/14/19 4016 I personally evaluated the patient and discussed the management with Dr. Navarro I agree with the History, Examination, Assessment and Plan documented above with any addition or exceptions noted below. Will need retry MRI with sedation otherwise consider bone scan continue w/u hypercalcemia.
[2019-04-14] MEDS: Piperacillin/Tazobactam 2.25 GM in Sodium Chloride 0.9% 100 ML IVPB SCH ×3 (06:16→22:44)
[2019-04-14] MEDS: Mometasone 100 MCG HFA INHALER INH SCH ×2 (06:33→18:50)
[2019-04-14 07:00] LABS: #Basophils 0.1 thou/uL (0.0-0.2); #Eosinphils 0.3 thou/uL (0.0-0.7); #Lymphocytes 1.5 thou/uL (1.20-3.40); #Monocytes 0.9 thou/uL (0.11-0.59); #Neutrophils 6.3 thou/uL (1.40-6.50); %Basophils 0.6 % (0.0-1.0); %Eosinophils 3.6 % (0.0-10.0); %Lymphocytes 16.1 % (21.0-51.0); %Monocytes 9.4 % (0.0-10.0); %Neutrophils 70.2 % (42.0-75.0); Hemoglobin 6.8 g/dL (14.0-18.0); Mean Corpuscular HGB CONC 31.1 g/dL (32.0-36.0); Mean Corpuscular Hemoglobin 24.1 pg (27.0-31.0); Mean Corpuscular Volume 77.5 fL (78.0-98.0); Mean Platelet Volume 8.8 fL (7.4-10.4); Platelet Count 280 thou/uL (130-400); RBC Distribution Width 21.1 % (11.5-14.5); Red Blood Cell (RBC) Count 2.82 mill/uL (4.70-6.10)
[2019-04-14 07:01] LABS: ALT (SGPT) 10 U/L (8-55); AST (SGOT) 15 U/L (5-34); Albumin 2.6 g/dL (3.5-5.0); Alkaline Phosphatase 94 U/L (40-110); Anion Gap 12 mmol/L (10-20); BUN (Urea Nitrogen) 28 mg/dL (8.9-20.6); Bilirubin, Total 0.5 mg/dL (0.2-1.2); Calc. Creatinine Clearance 42 mL/min (70-130); Calcium 11.2 mg/dL (7.8-10.44); Carbon Dioxide 28 mmol/L (22-29); Chloride 99 mmol/L (98-107); Estimated GFR-MDRD 18; Globulin 4.5 g/dL (2.4-3.5); Glucose 130 mg/dL (70-105); Protein, Total 7.1 g/dL (6.0-8.3); Sodium 135 mmol/L (136-145)
--- NOTE | 2019-04-14 08:18 | RAD ---
EXAM: 2 views of the skull HISTORY: MRI clearance. Patient was mechanically and had possible intraorbital foreign bodies. COMPARISON: None FINDINGS: No radiopaque foreign body is seen in either orbit. The paranasal sinuses are well aerated. IMPRESSION: No radiopaque foreign body identified.
[2019-04-14 08:42] LABS: Anisocytosis SLIGHT = 6-15 cells (100X) (0-5/hpf); Hypochromia SLIGHT = 6-15 cells (100X) (0-5/hpf); MDiff Complete? YES; Platelet Morphology Comment Appears Adequate; Polychromasia SLIGHT = 2-3 cells (100X) (0-2/hpf)
[2019-04-14] MEDS ORDERED: Polyethylene Glycol 3350 17 GM Packet PO SCH (09:00)
[2019-04-14] MEDS: Prasugrel 10 MG TAB PO SCH (09:36)
[2019-04-14] MEDS: Furosemide 40 MG TAB PO SCH (09:36)
[2019-04-14] MEDS: Folic Acid/Vit B Comp W-C PO SCH (09:36)
[2019-04-14] MEDS: Sevelamer Carbonate 800 MG TAB PO SCH ×3 (09:36→18:29)
[2019-04-14] MEDS: Senokot S 8.6-50 MG TAB PO SCH ×2 (09:37→20:15)
[2019-04-14] MEDS: Carvedilol 25 MG TAB PO SCH ×2 (09:37→20:15)
[2019-04-14] MEDS: Apixaban 5 MG TAB PO SCH ×2 (09:37→20:15)
[2019-04-14] MEDS ORDERED: Lorazepam 2 MG/ML VIAL SLOW IVP SCH (11:30)
[2019-04-14] MEDS: Activase 2 MG VIAL CATH SCH (11:56)
--- NOTE | 2019-04-14 12:15 | PDOC.GSPN ---
Surgery Progress Note: Subj - Subjective Narrative: Patient is a 48 yo M s/p excisional debridement of a 08A85A1.2 cm stage 4 sacral decubitus ulcer with wound vac placement, post-op day #2. Patient was seen at bedside during wound care change of wound vac. Patient tolerated dressing change at bedside with manageable pain. Wound bed was evaluated before fresh dressing was placed. Wound bed showed good formation of granulation tissue at periphery of wound with minimal granulation in center. Bled moderately with sponge removal. No signs of tissue necrosis or need for further debridement. Surgery Progress Note: Obj - Vital signs Vital signs: Vital Signs - Most Recent Temp Pulse Resp BP Pulse Ox 100 F H 81 18 123/70 93 L 04/14/19 07:43 04/14/19 07:43 04/14/19 07:43 04/14/19 07:43 04/14/19 08:00 - Physical Exam General: no distress, well developed, well nourished Wound: healing well, other (Wound bed showed good formation of granulation tissue at periphery of wound with minimal granulation in center. Muscle tissue exposed and healthy appearing. Bled moderately with sponge removal. No signs of tissue necrosis or need for further debridement) Surgery Progress Note: Results - Labs Result Diagrams: 04/14/19 06:30 04/14/19 06:30 Lab results: Laboratory Results - last 24 hr 04/14/19 04/14/19 04/14/19 05:09 06:30 06:30 WBC 9.0 RBC 2.82 L Hgb 6.8 L Hct 21.9 L MCV 77.5 L MCH 24.1 L MCHC 31.1 L RDW 21.1 H Plt Count 280 MPV 8.8 Neutrophils % 70.2 Neutrophils % (Manual) Not Reportable Lymphocytes % 16.1 L Monocytes % 9.4 Eosinophils % 3.6 Basophils % 0.6 Neutrophils # 6.3 Lymphocytes # 1.5 Monocytes # 0.9 H Eosinophils # 0.3 Basophils # 0.1 Hypochromia SLIGHT = 6-15 cells Plt Morphology Comment Appears Adequate Polychromasia SLIGHT = 2-3 cells Anisocytosis SLIGHT = 6-15 cells Sodium 135 L Potassium 4.0 Chloride 99 Carbon Dioxide 28 Anion Gap 12 BUN 28 H Creatinine 3.55 H Estimated GFR (MDRD) 18 Glucose 130 H POC Glucose 121 H Calcium 11.2 H Total Bilirubin 0.5 AST 15 ALT 10 Alkaline Phosphatase 94 Serum Total Protein 7.1 Albumin 2.6 L Globulin 4.5 H Albumin/Globulin Ratio 0.6 L TSH 3rd Generation 04/14/19 06:30 WBC RBC Hgb Hct MCV MCH MCHC RDW Plt Count MPV Neutrophils % Neutrophils % (Manual) Lymphocytes % Monocytes % Eosinophils % Basophils % Neutrophils # Lymphocytes # Monocytes # Eosinophils # Basophils # Hypochromia Plt Morphology Comment Polychromasia Anisocytosis Sodium Potassium Chloride Carbon Dioxide Anion Gap BUN Creatinine Estimated GFR (MDRD) Glucose POC Glucose Calcium Total Bilirubin AST ALT Alkaline Phosphatase Serum Total Protein Albumin Globulin Albumin/Globulin Ratio TSH 3rd Generation 3.8264 - Radiology Interpretation CT scan - chest Status: report reviewed by me ([facility] Pulmonary Emboli) Surgery Progress Note: A/P - Plan Plan: ASSESSMENT/PLAN: 1. S/P excisional debridement of 13B14I1.2 cm stage 4 sacral decubitus ulcer with wound vac placement PLAN: Wound vac removed and wound bed evaluated at bedside. Healthy appearing wound bed with good granulation tissue and no sign of necrosis. Fresh wound vac placed today with wound care. Will reevaluate wound bed with wound vac change at bedside on Wednesday.
--- NOTE | 2019-04-14 14:54 | PRG ---
DATE OF SERVICE: 04/14/2019 SUBJECTIVE: A 48-year-old gentleman, being seen for end-stage renal disease. The patient denied any nausea, vomiting, or chest pain. OBJECTIVE: CONSTITUTIONAL: On exam, the patient is awake and alert. VITAL SIGNS: Afebrile, pulse 81, breathing 16, and blood pressure 123/70. GENERAL APPEARANCE AND MENTAL STATUS: Fair. HEAD/NECK: Normocephalic. Atraumatic. EYES: EOMI. No deformity. EARS: Clear. No ulcers. NOSE: Intact. No lesions. MOUTH: Clear. No discharge. THROAT: Clear. No exudate. LUNGS: Clear. No crackles. CARDIAC: S1, S2. No rub. ABDOMEN: Benign. Bowel sounds positive. GENITALIA/RECTUM: Busby absent. BACK/EXTREMITIES: Edema 0+. NEUROLOGICAL: Alert and motor intact. SKIN: LYMPHATICS: LABORATORY DATA: Hemoglobin 6.8. ASSESSMENT AND PLAN: 1. Stage 6, chronic kidney disease. Plan dialysis. 2. Hypertension, stable. 3. Anemia. We would recommend 2 units of packed red blood cell transfusion with dialysis. Job ID: [id number]
[2019-04-14] MEDS ORDERED: Diazepam 10 MG/2 ML SYRINGE IVP SCH (17:00)
[2019-04-14] MEDS: HumaLOG 300 UNITS/3 ML VIAL SC PRN (18:30)
--- NOTE | 2019-04-14 19:02 | MRI ---
MRI PELVIS WITHOUT CONTRAST: 04/14/19 PROVIDED CLINICAL HISTORY: Sacral decubitus ulcer. FINDINGS: There is marked distention of the urinary bladder. There is cutaneous and subcutaneous tissue deficiency overlying the dorsal aspects of the distal sacr um and coccyx. There is patchy nonspecific signal alteration on fluid sensitive sequences within the gluteal musculature. There is a somewhat more focal area of signal alteration at the medial aspect o f the left gluteus jace muscle at the level of the ischial tuberosity measuring about 2.6 cm. This demonstrates signal intensity slightly isointense to normal muscular signal intensity and T1 signal intensity, isointense to normal muscular signal intensity. This is left of midline by about 3.4 cm an d deep to the wound by about 1.6 cm. There is signal alteration of fluid sensitive sequences involving the distal sacrum and coccyx. Assoc iated signal alteration on T1 weighted sequences is not seen. The visualized regional marrow signal appears otherwise unremarkable. IMPRESSION: 1. Signal alteration on fluid sensitive sequences involving the distal sacrum and coccyx. This m ay reflect reactive osteitis or early osteomyelitis. 2. Diffuse patchy bilateral gluteus jace signal change which is nonspecific. There is a somew hat more focal area of signal alteration within the medial aspect of the left gluteus jace muscle as described above that could reflect an abscess but is incompletely characterized on the bases of th is study. 3. Marked distention of the urinary bladder. POS: LINDA
[2019-04-14 20:07] LABS: Hemoglobin 8.4 g/dL (14.0-18.0); Mean Corpuscular HGB CONC 32.3 g/dL (32.0-36.0); Mean Corpuscular Hemoglobin 25.3 pg (27.0-31.0); Mean Corpuscular Volume 78.3 fL (78.0-98.0); Mean Platelet Volume 8.7 fL (7.4-10.4); Platelet Count 315 thou/uL (130-400); RBC Distribution Width 20.9 % (11.5-14.5); Red Blood Cell (RBC) Count 3.34 mill/uL (4.70-6.10); White Blood Cell (WBC) Count 10.8 thou/uL (4.8-10.8)
[2019-04-14 20:08] LABS: Reticulocyte Count 1.4 % (0.5-1.5)
[2019-04-14] MEDS: Gabapentin 300 MG CAP PO SCH (20:15)
[2019-04-14] MEDS: Calcium Carbonate 500 MG ChewTAB PO PRN (21:46)
[2019-04-14] MEDS ORDERED: Morphine 4 MG/ML VIAL SLOW IVP PRN (22:10)
[2019-04-14] MEDS: Morphine 4 MG/ML VIAL SLOW IVP PRN (22:43)
[2019-04-15] MEDS: Ondansetron PF 4 MG/2 ML Vial IVP PRN ×2 (00:06→08:31)
[2019-04-15] MEDS: Calcium Carbonate 500 MG ChewTAB PO PRN (03:10)
[2019-04-15] MEDS ORDERED: Ondansetron PF 4 MG/2 ML Vial SLOW IVP SCH (04:30)
--- NOTE | 2019-04-15 06:07 | PDOC.FM ---
- Subjective Subjective: Overnight pt had episodes of nausea and vomiting. Increased abdominal pain. States he cannot tolerate much other than small liquids PO. Denies any Cp, SOB. Has chronic constipation, last BM 6 days ago, given soap suds enema 2 days ago with only passing gas. On bowel regime. Still passing gas but no BM. Voiding without difficulty. Pain well-controlled with meds. Dialysis today. - Objective MAR Reviewed: Yes Vital Signs & Weight: Vital Signs (12 hours) Temp Pulse Resp BP Pulse Ox 04/15/19 00:00 99.8 F H 89 20 130/80 96 04/14/19 20:00 96 04/14/19 19:50 98.3 F 100 20 166/83 H 96 04/14/19 18:50 85 12 95 Weight Admit Weight 117.934 kg Weight 117.934 kg I&O: 04/13/19 04/14/19 04/15/19 06:59 06:59 06:59 Intake Total 1000 1470 Output Total 200 400 Balance 800 1070 Result Diagrams: 04/15/19 08:46 04/15/19 08:46 Phys Exam - Physical Examination Constitutional: NAD (slightly uncomfortable in bed) dry MM Neck: supple Respiratory: no wheezing, no rales, no rhonchi, clear to auscultation bilateral Cardiovascular: RRR, no significant murmur, no rub Gastrointestinal: soft, positive bowel sounds No rebound or guarding. No fluid wave. Mild TTP R>L, mildly distended Musculoskeletal: no edema, pulses present Psychiatric: normal affect, A&O x 3 Deviation from normal: wound vac in place on sacral wound, dressing in place foot ulcers Dx/Plan (1) CAD (coronary artery disease) Code(s): I25.10 - ATHSCL HEART DISEASE OF [place] CORONARY ARTERY W/O ANG PCTRS Status: Acute (2) Diabetes mellitus Code(s): E11.9 - TYPE 2 DIABETES MELLITUS WITHOUT COMPLICATIONS Status: Acute (3) ESRD (end stage renal disease) on dialysis Code(s): N18.6 - END STAGE RENAL DISEASE; Z99.2 - DEPENDENCE ON RENAL DIALYSIS Status: Acute (4) Pulmonary embolism Code(s): I26.99 - OTHER PULMONARY EMBOLISM WITHOUT ACUTE COR PULMONALE Status : Acute (5) Symptomatic anemia Code(s): D64.9 - ANEMIA, UNSPECIFIED Status: Acute - Plan Plan: 48 y/o M h/o PE, ESRD on HD, CHF, DMII admitted to medical inpatient for further treatment and evaluation of PE, Hypotension, sx anemia, and decubitus ulcer. #Sacral Decubitus Ulcer, stage 4, s/p debridement POD#3 - Dr. Allred, gen surg, debridement on 04/13/19, stage 4 ulcer, wound vac in place - serosanguinous fluid, apprec recs and assistance - Will cont vanc and zosyn - elevated ESR and CRP - MRI pelvis concern for osteitis vs early osteo, increased signal in L gluteus possibly abscess - Wound care consulted - pain well-controlled with current regime #Symptomatic anemia, worsening - Hgb 6.9 -> 7.6 -> 6.8 -> 8.4, AM CBC pending - s/p 2 unit pRBC, 04/11 and 04/14 - no s/s acute blood loss, VSS, sxs of dizziness/lightheadedness mildly improved , will cont to monitor and await AM CBC #Abdominal pain - concern for SBO or ileus as recent surgery vs constipation - h/o chronic constipation - VSS, will obtain KUB to evaluate and proceed appropriately with management #Pulmonary Embolism - Recent stay in [place] for cholecystectomy, pt intubated and sedated for extended period of time. - Developed PE, sacral decubitus ulceration over the course of stay. - Eliquis 5 mg BID - CTA: Right lower lobe Pulmonary Emboli #Hypotension, resolved - Pt given Nitro by fdc nurse. BP dropped drastically to sys 70's - In ED pressures were low and not rising at first, right femoral central line placed by ED physician - Pressors not initiated, as pressures stabilized sys 110's. - will cont fem line as no other IV access was able to be obtained #Hypercalcemia, hypoalbumin, hyerphosphatemia - Corrected Ca 12.3 this AM. PTH low at 15, prealbumin 10, phos 6.5, vit D 8.3. Retic 1.5 - Not consistent with ESRD secondary hyperparathyroidism, concern for malignant hypercalcemia vs infectious - PTHrP, 1-25 vit D, SPEP, UPEP, and urine free light chains pending - CT chest, abd, pelvis - no significant lymphadenopathy or masses noted other than vague density in spleen - on Renvela and vit d 50,000u q7d #Chronic Constipation - Last BM Wednesday, episodes of n/v overnight - s/p soap suds enema as well as bowel regime over last few days, passing gas and good bowel sounds - KUB for this AM, if non-obstructed with give fleets enema and monitor #HTN - initially held 2/2 hypotension, restarted coreg, BP stable at 110/70s, continue to monitor - cont to hold imdur, lisinopril, and norvasc #Atypical Chest Pain, resolved - likely 2/2 PE - Continue Eliquis - Indeterminate trops 2/2 ESRD, trended and stable, no acute EKG changes # ESRD on HD - HD every T,TR,Sat. On HD since 2017 - Dr. Marina Sintering Press Operator consulted, will cont dialysis, appreciate recs. - Monitoring lytes #DM II, insulin dependent - Hyperglycemia protocol, SSI, ACHS accuchecks - CC diet #CORNELIUS - CPAP QHS, pt refused overnight #Hx of CAD, with SC - S/P X3 stents - SC in 2018 - cont effient and lasix Code Status: Full code Diet: NPO awaiting KUB results, will then adv as tolerated and appropriate DVT ppx: eliquis for PE Dispo: Guarded, admitted to medical inpatient. Debridement POD#3, sacral MRI concern for osteo. Malignancy workup for hypercalcemia continuing. Evaluating constipation and new abdominal pain. Cont abx.
[2019-04-15] MEDS: Piperacillin/Tazobactam 2.25 GM in Sodium Chloride 0.9% 100 ML IVPB SCH ×3 (06:27→22:52)
[2019-04-15] MEDS: Mometasone 100 MCG HFA INHALER INH SCH ×2 (06:41→21:37)
[2019-04-15] MEDS: Apixaban 5 MG TAB PO SCH ×2 (08:33→19:45)
[2019-04-15] MEDS: Carvedilol 25 MG TAB PO SCH ×2 (08:33→19:45)
--- NOTE | 2019-04-15 08:33 | RAD ---
KUB: 04/15/2019 COMPARISON: None HISTORY: Nausea and vomiting, concern for ileus FINDINGS: Supine imaging provided, limiting assessment for bowel obstruction and free intraperitoneal air. Limited assessment demonstrates no evidence for bowel obstruction. No dilated gas-filled bowel seen on this exam. IMPRESSION: Grossly unremarkable KUB.
[2019-04-15] MEDS: Furosemide 40 MG TAB PO SCH (08:43)
[2019-04-15] MEDS: Folic Acid/Vit B Comp W-C PO SCH (08:43)
[2019-04-15] MEDS: Sevelamer Carbonate 800 MG TAB PO SCH ×3 (08:43→15:03)
[2019-04-15 09:22] LABS: Vancomycin, Random 10.1 ug/mL (See Comment)
[2019-04-15 09:25] LABS: ALT (SGPT) 9 U/L (8-55); AST (SGOT) 12 U/L (5-34); Albumin 2.8 g/dL (3.5-5.0); Alkaline Phosphatase 95 U/L (40-110); Anion Gap 15 mmol/L (10-20); BUN (Urea Nitrogen) 42 mg/dL (8.9-20.6); Bilirubin, Total 0.6 mg/dL (0.2-1.2); Calc. Creatinine Clearance 33 mL/min (70-130); Calcium 11.1 mg/dL (7.8-10.44); Carbon Dioxide 30 mmol/L (22-29); Chloride 97 mmol/L (98-107); Estimated GFR-MDRD 14; Glucose 175 mg/dL (70-105); Potassium 4.6 mmol/L (3.5-5.1); Protein, Total 6.8 g/dL (6.0-8.3); Sodium 137 mmol/L (136-145)
[2019-04-15] MEDS ORDERED: Fleet Enema 133 ML BOT PR SCH (09:30)
[2019-04-15 09:55] LABS: #Basophils 0.1 thou/uL (0.0-0.2); #Eosinphils 0.3 thou/uL (0.0-0.7); #Lymphocytes 1.4 thou/uL (1.20-3.40); #Monocytes 0.9 thou/uL (0.11-0.59); #Neutrophils 8.3 thou/uL (1.40-6.50); %Basophils 0.6 % (0.0-1.0); %Eosinophils 3.1 % (0.0-10.0); %Lymphocytes 12.8 % (21.0-51.0); %Monocytes 8.4 % (0.0-10.0); %Neutrophils 75.1 % (42.0-75.0); Anisocytosis SLIGHT = 6-15 cells (100X) (0-5/hpf); Hemoglobin 7.6 g/dL (14.0-18.0); MDiff Complete? YES; Mean Corpuscular HGB CONC 32.3 g/dL (32.0-36.0); Mean Corpuscular Hemoglobin 25.4 pg (27.0-31.0); Mean Corpuscular Volume 78.5 fL (78.0-98.0); Mean Platelet Volume 8.7 fL (7.4-10.4); Platelet Count 300 thou/uL (130-400); Platelet Morphology Comment Appears Adequate; Poikilocytosis SLIGHT = 6-15 cells (100X) (0-5/hpf); RBC Distribution Width 21.1 % (11.5-14.5); Red Blood Cell (RBC) Count 2.99 mill/uL (4.70-6.10)
[2019-04-15] MEDS: Prasugrel 10 MG TAB PO SCH (10:39)
--- NOTE | 2019-04-15 12:06 | PRG ---
DATE OF SERVICE: 04/15/2019 SUBJECTIVE: A 48-year-old gentleman, being seen for end-stage renal disease. The patient denied nausea, vomiting, or chest pain. OBJECTIVE: CONSTITUTIONAL: The patient is awake and alert. VITAL SIGNS: Pulse 75, breathing 16, blood pressure 115/60. GENERAL APPEARANCE AND MENTAL STATUS: Fair. HEAD/NECK: Normocephalic. Atraumatic. EYES: EOMI. No deformity. EARS: Clear. No ulcers. NOSE: Intact. No lesions. MOUTH: Clear. No discharge. THROAT: Clear. No exudate. LUNGS: Clear. No crackles. CARDIAC: S1, S2. No rub. ABDOMEN: Benign. Bowel sounds positive. GENITALIA/RECTUM: Busby absent. BACK/EXTREMITIES: Edema 0+. NEUROLOGICAL: Alert and motor intact. SKIN: LYMPHATICS: LABORATORY DATA: Reviewed. ASSESSMENT AND PLAN: 1. End-stage renal disease. Continue dialysis. 2. Hypertension, stable. 3. Anemia. Would recommend transfusion of 1 unit of packed red blood cells with dialysis. Job ID: [id number]
--- NOTE | 2019-04-15 12:58 | PRG ---
DATE OF SERVICE: 04/15/2019 Please see the note from Dr. Navarro, for which I agree. The patient was seen, evaluated, discussed and examined with the residents. This is an extremely complicated 48-year-old gentleman, who had complications after getting gallbladder out, for which he was intubated for a long period of time and pulmonary embolism, and eventually developed a bad decubitus that led to osteomyelitis on postoperative day 2 getting debrided. He is a dialysis patient and gets hemodialyzed. He has needed 2 units of packed red blood cells. One of the biggest complaint this morning is severe abdominal pain and bloating, and possibly vomiting from fecal impaction and at least severe constipation. X-ray did not show bowel obstruction. No air-fluid levels, etc. Nothing was too dilated, but is having a rough time secondary to just being so miserable because he feels like he is having a bowel movement. Subset enema did not work. He is on vancomycin and Zosyn for the infection and on blood thinners, etc. Also being worked up for hypercalcemia. Calcium is high and phosphorus is extremely high. Unclear exact etiology. It sounds like we are working up for possibly oncological source, although so far nothing has showed up. Vitamin D was extremely low and we will certainly replace that, but parathyroid hormone was normal low, which is appropriate for primary hypercalcemia. Job ID: [id number]
[2019-04-15] MEDS: Morphine 4 MG/ML VIAL SLOW IVP PRN ×3 (13:30→23:57)
[2019-04-15] MEDS ORDERED: Heparin 10,000 UNITS/1 ML VIAL ONE (15:00)
[2019-04-15] MEDS ORDERED: Famotidine 20 MG TAB PO PRN (16:08)
[2019-04-15 16:43] LABS: Hemoglobin 7.9 g/dL (14.0-18.0); Mean Corpuscular Hemoglobin 25.4 pg (27.0-31.0); Mean Corpuscular Volume 79.3 fL (78.0-98.0); Mean Platelet Volume 8.3 fL (7.4-10.4); Platelet Count 275 thou/uL (130-400); RBC Distribution Width 20.8 % (11.5-14.5); Red Blood Cell (RBC) Count 3.12 mill/uL (4.70-6.10)
[2019-04-15] MEDS: Vancomycin HCl 1 GM in Premix Bag 1 BAG IVPB SCH (17:00)
[2019-04-15] MEDS: Gabapentin 300 MG CAP PO SCH (19:45)
[2019-04-16] MEDS: Morphine 4 MG/ML VIAL SLOW IVP PRN ×5 (04:44→21:16)
[2019-04-16] MEDS: Piperacillin/Tazobactam 2.25 GM in Sodium Chloride 0.9% 100 ML IVPB SCH ×3 (04:46→21:20)
[2019-04-16] MEDS: HumaLOG 300 UNITS/3 ML VIAL SC PRN ×2 (05:23→16:43)
--- NOTE | 2019-04-16 06:08 | PDOC.FM ---
- Subjective Subjective: Doing well this morning. Large BM after fleets enema yesterday. Pain, n/v all resolved with BM. Tolerating full liquid diet well. Dialysis yesterday. S/p 1u pRBC yesterday. States pain is improving and well-controlled. Mild chronic CP associated with PE and pleuritic in nature. Denies any SOB. Has CORNELIUS and states he will try to use CPAP tonight. Denies fever/chills. Able to sit on beside toliet and sit up in bed without as much pain yesterday. - Objective MAR Reviewed: Yes Vital Signs & Weight: Vital Signs (12 hours) Temp Pulse Resp BP Pulse Ox 04/15/19 21:37 81 14 98 04/15/19 19:44 98 04/15/19 19:42 98.7 F 85 18 138/79 98 Weight Admit Weight 117.934 kg Weight 117.934 kg Most Recent Monitor Data Heart Rate from ECG 79 NIBP 119/58 Respiration from ECG 18 I&O: 04/14/19 04/15/19 04/16/19 06:59 06:59 06:59 Intake Total 2170 1050 Output Total 400 Balance 1770 1050 Result Diagrams: 04/16/19 05:18 04/16/19 05:18 Phys Exam - Physical Examination Constitutional: NAD (resting comfortably) HEENT: moist MMs Neck: supple Respiratory: no wheezing, no rales, no rhonchi, clear to auscultation bilateral Cardiovascular: RRR, no significant murmur, no rub Gastrointestinal: soft, non-tender (pain completely resolved), no distention, positive bowel sounds Musculoskeletal: no edema, pulses present Neurological: non-focal Psychiatric: A&O x 3 Deviation from normal: L femoral CL c/d/no erythema, left dialysis cath c/d, no erythema Dx/Plan (1) Sacral osteomyelitis Code(s): M46.28 - OSTEOMYELITIS OF [place], SACRAL AND SACROCOCCYGEAL REGION Status: Acute (2) CAD (coronary artery disease) Code(s): I25.10 - ATHSCL HEART DISEASE OF [place] CORONARY ARTERY W/O ANG PCTRS Status: Acute (3) Diabetes mellitus Code(s): E11.9 - TYPE 2 DIABETES MELLITUS WITHOUT COMPLICATIONS Status: Acute (4) ESRD (end stage renal disease) on dialysis Code(s): N18.6 - END STAGE RENAL DISEASE; Z99.2 - DEPENDENCE ON RENAL DIALYSIS Status: Acute (5) Pulmonary embolism Code(s): I26.99 - OTHER PULMONARY EMBOLISM WITHOUT ACUTE COR PULMONALE Status : Acute (6) Symptomatic anemia Code(s): D64.9 - ANEMIA, UNSPECIFIED Status: Acute - Plan Plan: 48 y/o M h/o PE, ESRD on HD, CHF, DMII admitted to medical inpatient for further treatment and evaluation of PE, Hypotension, sx anemia, and decubitus ulcer, found to have sacral osteo on MRI. #Sacral Decubitus Ulcer, stage 4, s/p debridement POD#4 - Dr. Allred, gen surg, consulted, debridement on 04/13/19, stage 4 ulcer, wound vac in place - serosanguinous fluid, apprec recs and assistance - Will cont vanc and zosyn (04/11). Will need 6-8wks of therapy. - MRI pelvis concern for osteitis vs early osteo, increased signal in L gluteus possibly abscess, will await surg recs - Wound care consulted - pain well-controlled with current regime - beginning to be able to ambulate more #Symptomatic anemia, worsening - AM CBC pending, last Hb 7.6->7.9 - s/p 3 unit pRBC, 04/11, 04/14, 04/15 - no s/s acute blood loss, VSS, sxs of dizziness/lightheadedness improved, will cont to monitor and await AM CBC - Pt states he had colonoscopy and EGD in 2014 with new colon polyps removed but otherwise negative - Has been told he had "blood disorder" in past but unsure of details and no complete workup #Abdominal pain, resolved - KUB - large stool burden, no SBO or air-fluid levels - h/o chronic constipation - resolved with fleets, will cont bowel regime. VSS, will monitor #Pulmonary Embolism - Recent stay in [place] for cholecystectomy, pt intubated and sedated for extended period of time. - Developed PE, sacral decubitus ulceration over the course of stay. - Eliquis 5 mg BID - CTA: Right lower lobe Pulmonary Emboli #Hypotension, resolved - at presentation 2/2 nitro, right fem line in place, no pressures required. BP stable currently, will monitor - will cont fem line for IV access as hard stick otherwise #Hypercalcemia, hypoalbumin, hyerphosphatemia - Corrected Ca 12.3. PTH low at 15, prealbumin 10, phos 6.5, vit D 8.3. Retic 1.5 - Not consistent with ESRD secondary hyperparathyroidism, concern for malignant hypercalcemia vs infectious hypercalcemia - PTHrP, 1-25 vit D, SPEP, UPEP, and urine free light chains pending - CT chest, abd, pelvis - no significant lymphadenopathy or masses noted other than vague density in spleen - on Renvela and vit d 50,000u q7d #Chronic Constipation - large bm with fleets on 04/15 - good bowel sounds, passing gas, abdominal pain resolved this AM, KUB large stool burder - cont bowel regime and monitor #HTN - initially held 2/2 hypotension, restarted coreg, BP stable at 110/70s, continue to monitor - cont to hold imdur, lisinopril, and norvasc #Atypical Chest Pain, resolved - chronic pleuritic pain 2/2 PE, cont eliquis - Indeterminate trops 2/2 ESRD, trended and stable, no acute EKG changes # ESRD on HD - HD every T,TR,Sat. On HD since 2017 - Dr. Marina Nuclear Medicine Tech consulted, will cont dialysis, appreciate recs. Monitoring lytes\\ #DM II, insulin dependent - Hyperglycemia protocol, SSI, ACHS accuchecks. CC diet #CORNELIUS - CPAP QHS, pt will try CPAP tonight #Hx of CAD, with PR - S/P X3 stents. PR in 2018 - cont effient and lasix Code Status: Full code Diet: CC, renal-high protein DVT ppx: eliquis for PE Dispo: Improved and stable. Admitted to medical inpatient. Debridement POD#4, sacral MRI concern for osteo. Malignancy workup for hypercalcemia continuing. Abdominal pain resolved. Will await malignancy workup labs and surg recs. Cont IV abx.
[2019-04-16 06:19] LABS: ALT (SGPT) 8 U/L (8-55); AST (SGOT) 13 U/L (5-34); Albumin 2.7 g/dL (3.5-5.0); Alkaline Phosphatase 86 U/L (40-110); Anion Gap 11 mmol/L (10-20); BUN (Urea Nitrogen) 22 mg/dL (8.9-20.6); Bilirubin, Total 0.6 mg/dL (0.2-1.2); Calc. Creatinine Clearance 49 mL/min (70-130); Calcium 10.9 mg/dL (7.8-10.44); Carbon Dioxide 28 mmol/L (22-29); Chloride 98 mmol/L (98-107); Estimated GFR-MDRD 22; Globulin 4.6 g/dL (2.4-3.5); Glucose 111 mg/dL (70-105); Potassium 3.7 mmol/L (3.5-5.1); Protein, Total 7.3 g/dL (6.0-8.3); Sodium 133 mmol/L (136-145)
[2019-04-16 06:45] LABS: #Basophils 0.1 thou/uL (0.0-0.2); #Eosinphils 0.4 thou/uL (0.0-0.7); #Lymphocytes 1.6 thou/uL (1.20-3.40); #Neutrophils 8.7 thou/uL (1.40-6.50); %Basophils 0.6 % (0.0-1.0); %Eosinophils 3.7 % (0.0-10.0); %Lymphocytes 13.2 % (21.0-51.0); %Monocytes 8.3 % (0.0-10.0); %Neutrophils 74.3 % (42.0-75.0); Anisocytosis SLIGHT = 6-15 cells (100X) (0-5/hpf); MDiff Complete? YES; Mean Corpuscular HGB CONC 32.3 g/dL (32.0-36.0); Mean Corpuscular Hemoglobin 25.2 pg (27.0-31.0); Mean Corpuscular Volume 78.2 fL (78.0-98.0); Mean Platelet Volume 9.1 fL (7.4-10.4); Platelet Count 293 thou/uL (130-400); RBC Distribution Width 21.2 % (11.5-14.5); Red Blood Cell (RBC) Count 3.16 mill/uL (4.70-6.10); White Blood Cell (WBC) Count 11.8 thou/uL (4.8-10.8)
[2019-04-16] MEDS: Mometasone 100 MCG HFA INHALER INH SCH ×2 (07:10→19:42)
[2019-04-16] MEDS: Folic Acid/Vit B Comp W-C PO SCH (09:01)
[2019-04-16] MEDS: Sevelamer Carbonate 800 MG TAB PO SCH ×3 (09:01→13:19)
[2019-04-16] MEDS: Carvedilol 25 MG TAB PO SCH ×2 (09:02→21:08)
[2019-04-16] MEDS: Apixaban 5 MG TAB PO SCH ×2 (09:02→21:08)
[2019-04-16] MEDS: Famotidine 20 MG TAB PO SCH ×2 (09:02→21:08)
[2019-04-16] MEDS: Furosemide 40 MG TAB PO SCH (09:03)
[2019-04-16] MEDS: Ondansetron PF 4 MG/2 ML Vial IVP PRN (09:03)
[2019-04-16] MEDS: Polyethylene Glycol 3350 17 GM Packet PO SCH (09:04)
[2019-04-16] MEDS: Prasugrel 10 MG TAB PO SCH (09:06)
[2019-04-16] MEDS: Senokot S 8.6-50 MG TAB PO SCH ×2 (09:06→21:08)
[2019-04-16] MEDS ORDERED: EPOETIN ALFA-EPBX (ESRD) 10,000 UNIT/ML VIAL SC SCH (12:00)
--- NOTE | 2019-04-16 12:06 | PRG ---
DATE OF SERVICE: 04/16/2019 SUBJECTIVE: This is a 48-year-old gentleman being seen for end-stage renal disease. The patient denies nausea, vomiting or chest pain. OBJECTIVE: See above. The patient awake, alert. VITAL SIGNS: Pulse 75, breathing 16, blood pressure 109/67. GENERAL APPEARANCE AND MENTAL STATUS: Fair. HEAD/NECK: Normocephalic. Atraumatic. EYES: EOMI. No deformity. EARS: Clear. No ulcers. NOSE: Intact. No lesions. MOUTH: Clear. No discharge. THROAT: Clear. No exudate. LUNGS: Clear. No crackles. CARDIAC: S1, S2. No rub. ABDOMEN: Benign. Bowel sounds positive. GENITALIA/RECTUM: Busby absent. BACK/EXTREMITIES: Edema 0+. NEUROLOGICAL: Alert and motor intact. SKIN: LYMPHATICS: LABORATORY DATA: Hemoglobin 8. ASSESSMENT: 1. Stage 6 chronic kidney disease, stable. 2. Hypertension, stable. 3. Anemia. Recommend Epogen 12633 units every treatment. Medication based on GFR is appropriate. Job ID: [id number]
[2019-04-16] MEDS: Metoclopramide HCl 10 MG TAB PO SCH ×3 (13:35→21:08)
--- NOTE | 2019-04-16 16:42 | PRG ---
DATE OF SERVICE: Please see note from Dr. Navarro, for which I agree. The patient was seen, evaluated, discussed, and examined with the residents by bedside. This gentleman has numerous issues going on. Recovering from the debridement of a large decubitus ulcer and infection. It sounds like prolonged intubation at previous hospital. Had extremely high calcium. Extremely low vitamin D. We are trying to figure out where the hypercalcemia is coming from. I do not think it is symptomatic. Does have quite a bit of constipation and ileus, possibly gastroparesis as he is having intermittent nausea and vomiting, possibly even distention, but that did improve with soapsuds enema yesterday. Has not vomited, but does sound like he is refluxing. Exam; chest, clear. Abdomen is benign. Extremities showed no edema. So, the plan is to continue same bowel plan. We are still working up the calcium. I do not think it is bad enough coming into a bisphosphonate at this point in time unless he becomes more symptomatic. He is still on antibiotics for the osteomyelitis of the sacrum and still has a wound VAC. I will add some Reglan and proton pump inhibitor and see if that helps some symptom cullen. Job ID: [id number]
[2019-04-16] MEDS: Gabapentin 300 MG CAP PO SCH (21:08)
[2019-04-17] MEDS: Morphine 4 MG/ML VIAL SLOW IVP PRN (01:58)
[2019-04-17] MEDS: Piperacillin/Tazobactam 2.25 GM in Sodium Chloride 0.9% 100 ML IVPB SCH (05:25)
[2019-04-17] MEDS: HumaLOG 300 UNITS/3 ML VIAL SC PRN ×2 (05:33→12:54)
--- NOTE | 2019-04-17 05:37 | PDOC.FM ---
- Subjective Subjective: Doing well this morning. No acute events overnight. Had BM last night. Tolerating PO. GERD sxs improved. Pain well-controlled. No n/v, fever/chills, CP , SOB. - Objective MAR Reviewed: Yes Vital Signs & Weight: Vital Signs (12 hours) Temp Pulse Resp BP Pulse Ox 04/17/19 02:42 94 L 04/16/19 20:00 99.6 F 96 20 143/71 H 95 04/16/19 19:42 96 Weight Admit Weight 117.934 kg Weight 117.934 kg Most Recent Monitor Data Heart Rate from ECG 79 NIBP 119/58 Respiration from ECG 18 I&O: 04/15/19 04/16/19 04/17/19 06:59 06:59 06:59 Intake Total 2170 1050 1100 Output Total 400 250 Balance 1770 1050 850 Result Diagrams: 04/17/19 05:30 04/17/19 05:30 Phys Exam - Physical Examination Constitutional: NAD (resting comfortably in bed) HEENT: moist MMs Neck: supple Respiratory: no wheezing, no rales, no rhonchi, clear to auscultation bilateral Cardiovascular: RRR, no significant murmur, no rub Gastrointestinal: soft, non-tender, no distention, positive bowel sounds Musculoskeletal: no edema, pulses present Neurological: non-focal Psychiatric: normal affect, A&O x 3 Deviation from normal: sacral decub with wound vac in place, heel uclers with dressing, c/d Dx/Plan (1) Sacral osteomyelitis Code(s): M46.28 - OSTEOMYELITIS OF VERTEBRA, SACRAL AND SACROCOCCYGEAL REGION Status: Acute (2) CAD (coronary artery disease) Code(s): I25.10 - ATHSCL HEART DISEASE OF [place] CORONARY ARTERY W/O ANG PCTRS Status: Acute (3) Diabetes mellitus Code(s): E11.9 - TYPE 2 DIABETES MELLITUS WITHOUT COMPLICATIONS Status: Acute (4) ESRD (end stage renal disease) on dialysis Code(s): N18.6 - END STAGE RENAL DISEASE; Z99.2 - DEPENDENCE ON RENAL DIALYSIS Status: Acute (5) Pulmonary embolism Code(s): I26.99 - OTHER PULMONARY EMBOLISM WITHOUT ACUTE COR PULMONALE Status : Acute (6) Symptomatic anemia Code(s): D64.9 - ANEMIA, UNSPECIFIED Status: Acute - Plan Plan: 48 y/o M h/o PE, ESRD on HD, CHF, DMII admitted to medical inpatient for further treatment and evaluation of PE, Hypotension, sx anemia, and decubitus ulcer, found to have sacral osteo on MRI. #Sacral Decubitus Ulcer, stage 4, s/p debridement POD#4 - Dr. Allred, gen surg, consulted, debridement on 04/13/19, stage 4 ulcer, wound vac in place - serosanguinous fluid, apprec recs and assistance - Will cont vanc and zosyn (04/11). Will need 6-8wks of therapy. Will arrange with dialysis vs new line - MRI pelvis concern for osteitis vs early osteo, increased signal in L gluteus possibly abscess, will await surg recs - Wound care consulted - pain well-controlled with current regime, will transition to PO - beginning to be able to ambulate more #Symptomatic anemia, stable - s/p 3 unit pRBC, 04/11, 04/14, 04/15 - no s/s acute blood loss, VSS, sxs of dizziness/lightheadedness improved, will cont to monitor. Hb 8 this AM - Pt states he had colonoscopy and EGD in 2014 with colon polyps removed but otherwise negative - Has been told he had "blood disorder" in past but unsure of details and no complete workup - started on epogen by nephro - Malignancy workup labs pending #Pulmonary Embolism - Recent stay in [place] for cholecystectomy, pt intubated and sedated for extended period of time. - Developed PE, sacral decubitus ulceration over the course of stay. - Eliquis 5 mg BID - CTA: Right lower lobe Pulmonary Emboli #Hypotension, resolved - at presentation 2/2 nitro, right fem line in place, no pressures required. BP stable currently, will monitor - will cont fem line for IV access as hard stick otherwise. Will discuss with dialysis on long-term IV abx and remove line today with plan in place #Hypercalcemia, hypoalbumin, hyerphosphatemia - Corrected Ca 12.3. PTH low at 15, prealbumin 10, phos 6.5, vit D 8.3. Retic 1.5 - Not consistent with ESRD secondary hyperparathyroidism, concern for malignant hypercalcemia vs infectious hypercalcemia - PTHrP, 1-25 vit D, SPEP, UPEP, and urine free light chains pending - CT chest, abd, pelvis - no significant lymphadenopathy or masses noted other than vague density in spleen - on Renvela and vit d 50,000u q7d #Chronic Constipation - large bm with fleets on 04/15 - good bowel sounds, passing gas, abdominal pain resolved, KUB large stool burdern - cont bowel regime and monitor #HTN - initially held 2/2 hypotension, restarted coreg, BP stable at 110/70s, continue to monitor - cont to hold imdur, lisinopril, and norvasc, restart when appropriate #Atypical Chest Pain, resolved - chronic pleuritic pain 2/2 PE, cont eliquis - Indeterminate trops 2/2 ESRD, trended and stable, no acute EKG changes # ESRD on HD - HD every T,TR,Sat. On HD since 2017 - Dr. Marina Supervisor [employer] consulted, will cont dialysis, appreciate recs. Monitoring lytes #DM II, insulin dependent - Hyperglycemia protocol, SSI, ACHS accuchecks. CC diet #CORNELIUS - CPAP QHS, pt will try CPAP tonight #Hx of CAD, with AR - S/P X3 stents. AR in 2018 - cont effient and lasix Code Status: Full code Diet: CC, renal-high protein DVT ppx: eliquis for PE Dispo: Improved and stable. Admitted to medical inpatient. Debridement POD#4, sacral MRI concern for osteo. Malignancy workup for hypercalcemia continuing. Abdominal pain resolved. Will await malignancy workup labs and surg recs. Cont IV abx will coordinate for line access for IV abx.
[2019-04-17 06:06] LABS: #Basophils 0.1 thou/uL (0.0-0.2); #Eosinphils 0.3 thou/uL (0.0-0.7); #Lymphocytes 1.3 thou/uL (1.20-3.40); #Monocytes 1.1 thou/uL (0.11-0.59); #Neutrophils 7.8 thou/uL (1.40-6.50); %Basophils 0.6 % (0.0-1.0); %Eosinophils 3.2 % (0.0-10.0); %Lymphocytes 12.7 % (21.0-51.0); %Monocytes 10.2 % (0.0-10.0); %Neutrophils 73.3 % (42.0-75.0); Hemoglobin 7.7 g/dL (14.0-18.0); Mean Corpuscular HGB CONC 31.7 g/dL (32.0-36.0); Mean Corpuscular Hemoglobin 24.9 pg (27.0-31.0); Mean Corpuscular Volume 78.4 fL (78.0-98.0); Mean Platelet Volume 8.6 fL (7.4-10.4); Platelet Count 277 thou/uL (130-400); RBC Distribution Width 21.5 % (11.5-14.5); Red Blood Cell (RBC) Count 3.11 mill/uL (4.70-6.10); White Blood Cell (WBC) Count 10.6 thou/uL (4.8-10.8)
[2019-04-17 06:13] LABS: ALT (SGPT) 8 U/L (8-55); AST (SGOT) 12 U/L (5-34); Albumin 2.7 g/dL (3.5-5.0); Alkaline Phosphatase 91 U/L (40-110); Anion Gap 13 mmol/L (10-20); BUN (Urea Nitrogen) 36 mg/dL (8.9-20.6); Bilirubin, Total 0.4 mg/dL (0.2-1.2); Calc. Creatinine Clearance 33 mL/min (70-130); Calcium 11.3 mg/dL (7.8-10.44); Carbon Dioxide 26 mmol/L (22-29); Chloride 99 mmol/L (98-107); Estimated GFR-MDRD 14; Globulin 4.6 g/dL (2.4-3.5); Glucose 166 mg/dL (70-105); Potassium 3.8 mmol/L (3.5-5.1); Protein, Total 7.3 g/dL (6.0-8.3); Sodium 134 mmol/L (136-145)
[2019-04-17] MEDS: Folic Acid/Vit B Comp W-C PO SCH (08:30)
[2019-04-17] MEDS: Apixaban 5 MG TAB PO SCH (08:30)
[2019-04-17] MEDS: Famotidine 20 MG TAB PO SCH ×2 (08:31→20:31)
[2019-04-17] MEDS: Furosemide 40 MG TAB PO SCH (08:31)
[2019-04-17] MEDS: Prasugrel 10 MG TAB PO SCH (08:31)
[2019-04-17] MEDS: Carvedilol 25 MG TAB PO SCH ×2 (08:31→20:31)
[2019-04-17] MEDS: Senokot S 8.6-50 MG TAB PO SCH ×2 (08:31→20:31)
[2019-04-17] MEDS: Sevelamer Carbonate 800 MG TAB PO SCH ×3 (08:31→16:23)
[2019-04-17] MEDS: Polyethylene Glycol 3350 17 GM Packet PO SCH (08:31)
[2019-04-17] MEDS: Metoclopramide HCl 10 MG TAB PO SCH ×4 (08:31→20:31)
[2019-04-17] MEDS: traMADol HCl 50 MG TAB PO PRN ×4 (09:34→22:32)
[2019-04-17] MEDS: Mometasone 100 MCG HFA INHALER INH SCH ×2 (10:07→18:29)
--- NOTE | 2019-04-17 12:38 | PRG ---
DATE OF SERVICE: 04/17/2019 Mr. Ha is a very unfortunate 48-year-old patient with multiple medical problems. These include recent pulmonary embolus, end-stage renal disease requiring dialysis, and osteomyelitis of the sacrum. He is currently on broad-spectrum antibiotics as well as anticoagulation. He is undergoing every other day dialysis. We will continue to follow with his multiple specialists. Job ID: [id number]
[2019-04-17] MEDS: cefTRIAXone\\ROCEPHIN 2 GM in Sodium Chloride 0.9% 100 ML IVPB SCH (12:54)
--- NOTE | 2019-04-17 13:56 | PDOC.FM ---
- Subjective Subjective: Mr. Ha was resting comfortably in his hospital bed at the time of evaluation by the Trauma Team. He denied any acute overnight events such as chest pain, shortness of breath or febrile episodes. Guards were in place both in the room and the hallway. - Objective MAR Reviewed: Yes Vital Signs & Weight: Vital Signs (12 hours) Temp Pulse Resp BP Pulse Ox 04/17/19 08:00 96 04/17/19 07:32 98.9 F 84 18 116/70 96 04/17/19 02:42 94 L Weight Admit Weight 117.934 kg Weight 117.934 kg Most Recent Monitor Data Heart Rate from ECG 79 NIBP 119/58 Respiration from ECG 18 I&O: 04/16/19 04/17/19 04/18/19 06:59 06:59 06:59 Intake Total 1050 1100 Output Total 250 Balance 1050 850 Result Diagrams: 04/17/19 05:30 04/17/19 05:30 Radiology Reviewed by me: Yes (Reports only) Phys Exam - Physical Examination Constitutional: NAD HEENT: PERRLA, moist MMs, sclera anicteric, oral pharynx no lesions Neck: supple, full ROM Respiratory: no wheezing, no rales, no rhonchi, clear to auscultation bilateral Cardiovascular: RRR, no significant murmur, no rub Gastrointestinal: soft, non-tender, no distention Musculoskeletal: no edema, pulses present Neurological: non-focal, moves all 4 limbs Psychiatric: normal affect Deviation from normal: Large sacral ulcer noted with oozing blood and purulent tissue visible Dx/Plan - Plan Plan: 1. Sacral Decubitus Ulcer, Stage 4 -Sharp Debridement s/p Day 4 -MRI Pelvis: Osteitis vs. Osteomyelitis w/ possible Left Gluteal Abscess -Currently receiving IV Vanc and Ceftriaxone -Pain controlled w/ Tramadol 50 mg PO Q6H and Gabapentin 300 mg PO daily -Wound Care: Consulted -Trauma Team: Consulted -Will likely required additional surgical intervention 2. Pulmonary Embolism -Recently occurred while patient was at outside hospital in [place], [place] for cholecystectomy - treatment required prolonged intubation and sedation -CTA: RLL Pulmonary Emboli -VTE PPx: SCDs and Apixaban 2.5 mg PO BID -Continue to monitor O2Sats closely and evaluate as needed 3. Hypercalcemia, Hyperphosphatemia, Decrease Albumin -Corrected Ca: 12.3 / PTH: 15 / Pre-Albumin: 10 / Phos: 6.5 / Vitamin D: 8.3 / Reticulocytes: 1.5 -Currently receiving Renvela and Vitamin D 50,000u Q7D -Currently being managed by [facility] 4. Chronic Constipation -Large BM following Fleets Enema on 06/15 -Physical exam unremarkable -Currently receiving Dulcolax, Miralax, Senokot -Currently being managed by [facility] 5. ESRD requiring Hemodialysis -Currently receiving hemodialysis x3 weekly - same regimen since 2017 -Nephrology: Consulted, currently following 6. DM2, Insulin Dependent -POC Glucose: 166 on 04/17 -Hyperglycemia / Hypoglycemia Protocols activated -Sliding Scale Insulin -ACHS AccuChecks -Diet: Carbohydrate Conscious -Currently being managed by [facility] 7. Obstructive Sleep Apnea -Previously wore CPAP QHS -Patient will try to utilize CPAP this PM -Currently being managed by [facility] Dispo: Patient is currently stable on Medical Floor. Physical examination and recent MRI indicate necessity for additional surgical intervention despite current anticoagulation, as risks for additional complications from Stage 4 Decubitus Ulcer outweigh risk of VTE. Plan for surgery this PM. Expected LOS > 48H. Note: Dr. Montez was present at the time of evaluation and agrees with the plan as outlined above.
[2019-04-17 15:10] LABS: A/G Ratio 0.5 (0.7-1.7); Albumin 2.1 g/dL (2.9-4.4); Alpha 1 0.5 g/dL (0.0-0.4); Beta 0.8 g/dL (0.7-1.3); Gamma 1.8 g/dL (0.4-1.8); Globulin, Total 4.1 g/dL (2.2-3.9); M-Spike Not Observed g/dL (Not Observed); Protein Electrophoresis Intrp Note: (.)
[2019-04-17 16:09] LABS: Albumin-Ur 29.8 % (.); Alpha 1 - Ur 7.4 % (.); Alpha 2 - Ur 18.1 % (.); Beta-Ur 23.4 % (.); Gamma-Ur 21.2 % (.); M-Spike,% Not Observed % (Not Observed); Protein, Urine 164.4 mg/dL (Not Estab.)
--- NOTE | 2019-04-17 17:50 | PRG ---
DATE OF SERVICE: 04/17/2019 SUBJECTIVE: Patient was seen and examined at bedside and overnight events noted. Patient denies any shortness of breath or chest pain or palpitation. No history of nausea or vomiting or diarrhea or fever or chills or cramps. OBJECTIVE: GENERAL: This is an obese male, in no apparent distress. VITAL SIGNS: Temperature 98.9. Heart rate 84. Respiratory rate 18. Blood pressure 116/70. HEENT: Atraumatic, normocephalic. Oral mucosa is moist NECK: Supple. CARDIOVASCULAR: S1, S2 heard. Rate and rhythm regular. RESPIRATORY: Clear to auscultation. GASTROINTESTINAL: Abdomen is soft. MUSCULOSKELETAL: No tenderness. No edema. DERMATOLOGIC: No skin rash. NEUROLOGIC: Alert and awake and oriented X3. No focal neurologic deficits. Moving all the extremities. PSYCHIATRIC: Mood and affect normal. LABORATORY DATA: Potassium 3.8, BUN is 36, and creatinine is 4.5. ASSESSMENT AND PLAN: 1. End-stage renal disease. Continue dialysis on Wednesday, , and Wednesday. 2. Edema, . 3. History of hypertension. 4. Anemia. PLAN: Plan is to continue on dialysis as tolerated. Job ID: [id number]
[2019-04-17] MEDS: Gabapentin 300 MG CAP PO SCH (20:31)
[2019-04-17] MEDS ORDERED: Apixaban 2.5 MG TAB PO SCH (21:00)
[2019-04-18] MEDS: traMADol HCl 50 MG TAB PO PRN ×2 (02:16→12:55)
[2019-04-18] MEDS: Carvedilol 25 MG TAB PO SCH ×2 (05:31→20:47)
[2019-04-18 05:54] LABS: ALT (SGPT) 7 U/L (8-55); AST (SGOT) 11 U/L (5-34); Albumin 2.7 g/dL (3.5-5.0); Alkaline Phosphatase 90 U/L (40-110); Anion Gap 15 mmol/L (10-20); BUN (Urea Nitrogen) 50 mg/dL (8.9-20.6); Bilirubin, Total 0.4 mg/dL (0.2-1.2); Calc. Creatinine Clearance 30 mL/min (70-130); Calcium 11.4 mg/dL (7.8-10.44); Carbon Dioxide 24 mmol/L (22-29); Chloride 101 mmol/L (98-107); Estimated GFR-MDRD 13; Globulin 4.7 g/dL (2.4-3.5); Glucose 202 mg/dL (70-105); Potassium 3.9 mmol/L (3.5-5.1); Protein, Total 7.4 g/dL (6.0-8.3); Sodium 136 mmol/L (136-145)
[2019-04-18 06:31] LABS: #Eosinphils 0.4 thou/uL (0.0-0.7); #Lymphocytes 1.5 thou/uL (1.20-3.40); #Neutrophils 7.4 thou/uL (1.40-6.50); %Basophils 0.1 % (0.0-1.0); %Eosinophils 3.5 % (0.0-10.0); %Lymphocytes 14.6 % (21.0-51.0); %Monocytes 9.5 % (0.0-10.0); %Neutrophils 72.3 % (42.0-75.0); Anisocytosis MODERATE=16-30 cells (100X) (0-5/hpf); Basophilic Stippling SLIGHT = 1-2 cells (100X) (None Seen); Hemoglobin 7.5 g/dL (14.0-18.0); Hypochromia SLIGHT = 6-15 cells (100X) (0-5/hpf); MDiff Complete? YES; Mean Corpuscular HGB CONC 31.1 g/dL (32.0-36.0); Mean Corpuscular Hemoglobin 24.3 pg (27.0-31.0); Mean Corpuscular Volume 77.9 fL (78.0-98.0); Mean Platelet Volume 8.9 fL (7.4-10.4); Platelet Count 307 thou/uL (130-400); Polychromasia SLIGHT = 2-3 cells (100X) (0-2/hpf); RBC Distribution Width 21.6 % (11.5-14.5); Red Blood Cell (RBC) Count 3.07 mill/uL (4.70-6.10); White Blood Cell (WBC) Count 10.2 thou/uL (4.8-10.8)
[2019-04-18] MEDS ORDERED: Fentanyl 100 MCG/2 ML VIAL ONE ×3 (06:38→11:56)
[2019-04-18 06:44] LABS: Vancomycin, Trough 8.7 ug/mL
--- NOTE | 2019-04-18 06:57 | PDOC.FM ---
- Objective Vital Signs & Weight: Vital Signs (12 hours) Temp Pulse Resp BP Pulse Ox 04/18/19 04:00 98.1 F 87 20 125/80 96 04/17/19 20:30 93 L 04/17/19 20:00 98.7 F 94 20 134/76 93 L Weight Admit Weight 117.934 kg Weight 117.934 kg Most Recent Monitor Data Heart Rate from ECG 79 NIBP 119/58 Respiration from ECG 18 I&O: 04/16/19 04/17/19 04/18/19 06:59 06:59 06:59 Intake Total 1050 1100 1330 Output Total 250 4299 Balance 1050 850 -2969 Result Diagrams: 04/18/19 05:15 04/18/19 05:15 Dx/Plan - Plan Plan: 1. Sacral Decubitus Ulcer, Stage 4 -Sharp Debridement s/p Day 4 -MRI Pelvis: Osteitis vs. Osteomyelitis w/ possible Left Gluteal Abscess -Currently receiving IV Vanc and Ceftriaxone -Pain controlled w/ Tramadol 50 mg PO Q6H and Gabapentin 300 mg PO daily -Wound Care: Consulted -Trauma Team: Consulted -Additional surgical intervention currently scheduled for 04/18 2. Pulmonary Embolism -Recently occurred while patient was at outside hospital in [place], [place] for cholecystectomy - treatment required prolonged intubation and sedation -CTA: RLL Pulmonary Emboli -VTE PPx: SCDs and Apixaban 2.5 mg PO BID - PM dose held -Continue to monitor O2Sats closely and evaluate as needed 3. Hypercalcemia, Hyperphosphatemia, Decrease Albumin -Corrected Ca: 12.3 / PTH: 15 / Pre-Albumin: 10 / Phos: 6.5 / Vitamin D: 8.3 / Reticulocytes: 1.5 -Currently receiving Renvela and Vitamin D 50,000u Q7D -Currently being managed by [facility] 4. Chronic Constipation -Large BM following Fleets Enema on 06/15 -Physical exam unremarkable -Currently receiving Dulcolax, Miralax, Senokot -Currently being managed by [facility] 5. ESRD requiring Hemodialysis -Currently receiving hemodialysis x3 weekly - same regimen since 2017 -Nephrology: Consulted, currently following 6. DM2, Insulin Dependent -POC Glucose: 202 on 04/18 -Hyperglycemia / Hypoglycemia Protocols activated -Sliding Scale Insulin -ACHS AccuChecks -Diet: Carbohydrate Conscious -Currently being managed by [facility] 7. Obstructive Sleep Apnea -Currently being managed by [facility] Dispo: Patient was taken to Day Stay earlier this morning for planned surgical debridement of sacral ulcer. Plan for surgery this AM. Expected LOS > 48H. Note: Dr. Montez was present at the time of evaluation and agrees with the plan as outlined above.
[2019-04-18] MEDS ORDERED: LACTULOSE PO PRN (07:35)
--- NOTE | 2019-04-18 07:40 | PDOC.FM ---
- Subjective Subjective: Pt doing well this morning, no acute events overnight. In pre-op for return to OR for debridement of sacral wound. Pt states he is voiding with no sensation of retention or pain. Had >1L on bladder scan, in and out cath was 2.4L. States moderate pain, with improvement with Tramadol. Denies any CP, N/v, fever/chills , SOB. Passing gas and tolerating PO. No BM in 2 days. Dialysis today. - Objective MAR Reviewed: Yes Vital Signs & Weight: Vital Signs (12 hours) Temp Pulse Resp BP Pulse Ox 04/18/19 04:00 98.1 F 87 20 125/80 96 04/17/19 20:30 93 L 04/17/19 20:00 98.7 F 94 20 134/76 93 L Weight Admit Weight 117.934 kg Weight 117.934 kg Most Recent Monitor Data Heart Rate from ECG 79 NIBP 119/58 Respiration from ECG 18 I&O: 04/17/19 04/18/19 04/19/19 06:59 06:59 06:59 Intake Total 1100 1330 Output Total 250 4299 Balance 850 -2969 Result Diagrams: 04/18/19 05:15 04/18/19 05:15 Phys Exam - Physical Examination Constitutional: NAD (resting comfortably in bed) HEENT: moist MMs Neck: supple Respiratory: no wheezing, no rales, no rhonchi, clear to auscultation bilateral Cardiovascular: RRR, no significant murmur, no rub Gastrointestinal: soft, non-tender, no distention, positive bowel sounds Musculoskeletal: no edema, pulses present Neurological: non-focal Psychiatric: normal affect, A&O x 3 Deviation from normal: Sacral wound vac in place. Ulcers on feet wrapped, clean , dry. Femoral central line with area of minimal erythema and drainage Deviation from normal: Dialysis cath in place in right chest wall. C/D/I. Dx/Plan (1) Sacral osteomyelitis Code(s): M46.28 - OSTEOMYELITIS OF [place], SACRAL AND SACROCOCCYGEAL REGION Status: Acute (2) CAD (coronary artery disease) Code(s): I25.10 - ATHSCL HEART DISEASE OF [place] CORONARY ARTERY W/O ANG PCTRS Status: Acute (3) Diabetes mellitus Code(s): E11.9 - TYPE 2 DIABETES MELLITUS WITHOUT COMPLICATIONS Status: Acute (4) ESRD (end stage renal disease) on dialysis Code(s): N18.6 - END STAGE RENAL DISEASE; Z99.2 - DEPENDENCE ON RENAL DIALYSIS Status: Acute (5) Pulmonary embolism Code(s): I26.99 - OTHER PULMONARY EMBOLISM WITHOUT ACUTE COR PULMONALE Status : Acute (6) Symptomatic anemia Code(s): D64.9 - ANEMIA, UNSPECIFIED Status: Acute - Plan Plan: 48 y/o M h/o PE, ESRD on HD, CHF, DMII admitted to medical inpatient for further treatment and evaluation of PE, Hypotension, sx anemia, and decubitus ulcer, found to have sacral osteo on MRI. #Sacral Decubitus Ulcer, stage 4, s/p debridement POD#5 - Dr. Allred, gen surg, consulted, debridement on 04/13/19, stage 4 ulcer, wound vac in place - serosanguinous fluid, return to OR today for further debridement - Cont vanc (04/11), switched to Rocephin (04/17). S/p zosyn (04/11). Will need 6-8wks of vanc + rocephin. Will arrange with dialysis center - MRI pelvis concern for osteitis vs early osteo, increased signal in L gluteus possibly abscess, OR today - Wound care consulted - pain meds transitioned to PO, will monitor post-op and adjust as needed #Symptomatic anemia, stable - s/p 3 unit pRBC, 04/11, 04/14, 04/15 - no s/s acute blood loss, VSS, sxs of dizziness/lightheadedness improved, will cont to monitor. Hb 7.5 this AM. - Pt states he had colonoscopy and EGD in 2015 with colon polyps removed but otherwise negative. FOBT unable to obtain. - Has been told he had "blood disorder" in past but unsure of details and no complete workup - started on epogen by nephro - Malignancy workup labs pending #Pulmonary Embolism - [facility] for cholecystectomy, pt intubated and sedated for extended period of time. - Developed PE, sacral decubitus ulceration over the course of stay. - Eliquis 2.5 mg BID, decreased dose 2/2 renal disease - CTA: Right lower lobe Pulmonary Emboli #Hypotension, resolved - at presentation 2/2 nitro, right fem line in place, no pressures required. BP stable currently, will monitor - Will d/c fem line today, will obtain peripheral access #Hypercalcemia, hypoalbumin, hyerphosphatemia - Corrected Ca 12.3. PTH low at 15, prealbumin 10, phos 6.5, vit D 8.3. Retic 1.5 - Not consistent with ESRD secondary hyperparathyroidism, concern for malignant hypercalcemia vs infectious hypercalcemia - 1-25 vit D 4, SPEP and UPEP negative, Haptoglobin 360 likely acute phase reactant. PTHrP pending. - CT chest, abd, pelvis - no significant lymphadenopathy or masses noted other than vague density in spleen - on Renvela and vit d 50,000u q7d #Urinary Retention - asymptomatic. Post void >1L, in-out 2.4L - repeat scan this morning post 600cc void was 335cc - will review medications and other causes of urinary rentention. Cont to monitor #Chronic Constipation - large bm with fleets on 04/15 - good bowel sounds, passing gas, abdominal pain resolved, KUB large stool burden - cont bowel regime, restarted home lactulose, monitor #HTN - initially held 2/2 hypotension, restarted coreg, BP stable, restarted imdur this morning. - cont to hold lisinopril and norvasc, restart when appropriate #Atypical Chest Pain, resolved - chronic pleuritic pain 2/2 PE, cont eliquis - Indeterminate trops 2/2 ESRD, trended and stable, no acute EKG changes # ESRD on HD - HD every T,TR,Sat. On HD since 2017 - Dr. Marina [employer] consulted, will cont dialysis, appreciate recs. Monitoring lytes #DM II, insulin dependent - Hyperglycemia protocol, SSI, ACHS accuchecks. CC diet #CORNELIUS - CPAP QHS, CPAP HS #Hx of CAD, with [place] - S/P X3 stents. MS in 2018. Cont effient and lasix Code Status: Full code Diet: NPO for surgery, CC/renal-high protein after DVT ppx: eliquis for PE Dispo: Improved and stable. Admitted to medical inpatient. Debridement POD#5, sacral MRI concern for osteo. Malignancy workup for hypercalcemia continuing. Return to OR today for further debridement. Cont IV abx, will need 6-8 weeks.
[2019-04-18] MEDS: Mometasone 100 MCG HFA INHALER INH SCH ×2 (07:41→18:05)
[2019-04-18] MEDS: Prasugrel 10 MG TAB PO SCH (08:00)
[2019-04-18] MEDS: Folic Acid/Vit B Comp W-C PO SCH (08:00)
[2019-04-18] MEDS: Senokot S 8.6-50 MG TAB PO SCH ×2 (08:00→20:47)
[2019-04-18] MEDS: Furosemide 40 MG TAB PO SCH (08:00)
[2019-04-18] MEDS: Metoclopramide HCl 10 MG TAB PO SCH ×4 (08:00→20:47)
[2019-04-18] MEDS: Isosorbide Mononitrate (ER) 30 MG TAB PO SCH (08:00)
[2019-04-18] MEDS: Famotidine 20 MG TAB PO SCH (08:00)
[2019-04-18] MEDS: Polyethylene Glycol 3350 17 GM Packet PO SCH (08:00)
[2019-04-18] MEDS: Sevelamer Carbonate 800 MG TAB PO SCH ×3 (08:00→17:17)
[2019-04-18] MEDS ORDERED: Ondansetron HCl/PF 4 MG/2 ML Vial IVP PRN (08:22)
[2019-04-18] MEDS ORDERED: HUMAN PROTHROMBIN COMPLX IV SCH (08:30)
[2019-04-18] MEDS ORDERED: [UNRECOGNIZED DRUG - OTHER] IV SCH (08:30)
[2019-04-18] MEDS ORDERED: HUM PROTHROMBIN CPLX IV SCH (08:30)
[2019-04-18] MEDS ORDERED: Albumin 25% 100 ML ONE (08:54)
[2019-04-18] MEDS ORDERED: Norepinephrine 4 MG/4 ML VIAL ONE ×3 (09:04→09:40)
[2019-04-18 10:28] LABS: Hemoglobin 7.2 g/dL (14.0-18.0); Mean Corpuscular HGB CONC 32.6 g/dL (32.0-36.0); Mean Corpuscular Hemoglobin 25.4 pg (27.0-31.0); Mean Corpuscular Volume 77.8 fL (78.0-98.0); Mean Platelet Volume 8.5 fL (7.4-10.4); Platelet Count 259 thou/uL (130-400); RBC Distribution Width 21.6 % (11.5-14.5); Red Blood Cell (RBC) Count 2.83 mill/uL (4.70-6.10); White Blood Cell (WBC) Count 8.9 thou/uL (4.8-10.8)
--- NOTE | 2019-04-18 10:55 | PRG ---
DATE OF SERVICE: 04/18/2019 SUBJECTIVE: Patient was seen and examined at bedside and overnight events noted. Patient denies any shortness of breath or chest pain or palpitation. No history of nausea or vomiting or diarrhea or fever or chills or cramps. OBJECTIVE: GENERAL: This is a well-built male, in no apparent distress. VITAL SIGNS: Temperature 98.1. Heart rate 80. Respiratory rate 20. Blood pressure 125/80. HEENT: Atraumatic, normocephalic. Oral mucosa is moist NECK: Supple. CARDIOVASCULAR: S1, S2 heard. Rate and rhythm regular. RESPIRATORY: Clear to auscultation. GASTROINTESTINAL: Abdomen is soft. MUSCULOSKELETAL: No tenderness. No edema. DERMATOLOGIC: No skin rash. NEUROLOGIC: Alert and awake and oriented X3. No focal neurologic deficits. Moving all the extremities. PSYCHIATRIC: Mood and affect normal. LABORATORY DATA: Potassium is 3.9, BUN is 50, and creatinine is 4.9. ASSESSMENT AND PLAN: 1. End-stage renal disease. Plan to continue dialysis on Wednesday, , and Wednesday. 2. Edema. We will remove fluid. 3. History of hypertension. 4. Chronic anemia. Continue dialysis as tolerated. Job ID: [id number]
--- NOTE | 2019-04-18 10:57 | PRG ---
DATE OF SERVICE: 04/18/2019 Mr. Ha has been taken for further surgical debridement of his sacral wound under general anesthesia. We will continue to manage his other medical issues including his type 2 diabetes. Job ID: [id number]
[2019-04-18] MEDS: Tamsulosin HCl 0.4 MG CAP PO SCH (12:55)
[2019-04-18 13:11] LABS: Interpretation Note: (.)
[2019-04-18] MEDS ORDERED: traMADol HCl 50 MG TAB PO PRN (13:16)
[2019-04-18] MEDS ORDERED: Acetaminophen/Codeine 30-300mg Tablet PO PRN (13:16)
[2019-04-18] MEDS: Acetaminophen/Codeine 30-300mg Tablet PO PRN ×2 (14:06→20:48)
--- NOTE | 2019-04-18 14:09 | OP ---
DATE OF PROCEDURE: 04/18/2019 PREOPERATIVE DIAGNOSES: 1. Sacral decubitus ulcer. 2. Eliquis-induced coagulopathy. POSTOPERATIVE DIAGNOSIS: Sacral decubitus ulcer plus 16 x 21 x 4.2 cm necrotizing soft tissue wound. PROCEDURE PERFORMED: Excisional debridement of 16 x 21 x 4.2 cm necrotizing soft tissue sacral decubitus wound. ANESTHESIA: General endotracheal. ESTIMATED BLOOD LOSS: 500 mL. FLUIDS GIVEN: 1200 mL of crystalloids. COMPLICATIONS: None apparent at the time of operation. INDICATIONS FOR OPERATION: This is a 48-year-old man, an inmate of a correctional facility, with history of end-stage renal disease, dialysis dependent with previous sacral decubitus ulcer, which had been debrided. The patient was examined at bedside finding necrotizing soft tissue wound, which warranted urgent trip to the operating room. Additionally, the patient has been on Eliquis. He was given Kcentra this morning and brought to the operating room for wound debridement. FINDINGS: Consistent with wide area necrotizing soft tissue wound down to the bone involving the medial aspect of the bilateral gluteus minimus and jace. DESCRIPTION OF PROCEDURE: Informed consent was obtained from the patient, who was brought to the operating room and placed in supine position. Following general anesthesia, the patient was placed in the prone position, yonatan-[id number]. The previous dressing was removed. The wound was inspected, finding a significant amount of necrotizing soft tissue wound with gross purulence emanating from the necrotic muscle. Using Metzenbaum scissors, alternated with scalpel, necrotic tissues were taken down. Overlying skin was excised using cautery. Bleeding points were controlled using cautery. The necrotic tissues sent to pathology. Cultures were taken. There was fair amount of venous ooze. We used an extractor to try to gain control locally. Using Metzenbaum scissors, deeper necrotic tissues were sharply debrided. The wound bed was then irrigated with saline. Temporary wound closure was achieved with wound VAC. The patient tolerated this operation without any apparent complication and was returned to recovery room in satisfactory condition. Job ID: [id number]
[2019-04-18 16:20] LABS: Hemoglobin 7.5 g/dL (14.0-18.0); Platelet Count 297 thou/uL (130-400)
[2019-04-18] MEDS ORDERED: Heparin 25,000 units/D5W 500 ML IVPB SCH (17:00)
[2019-04-18] MEDS: HumaLOG 300 UNITS/3 ML VIAL SC PRN ×2 (17:17→20:52)
[2019-04-18] MEDS: cefTRIAXone\\ROCEPHIN 2 GM in Sodium Chloride 0.9% 100 ML IVPB SCH ×2 (17:36→19:44)
[2019-04-18 17:49] LABS: Hemoglobin 7.2 g/dL (14.0-18.0); Platelet Count 276 thou/uL (130-400)
[2019-04-18] MEDS: Morphine 2 MG/ML SYRINGE SLOW IVP PRN (18:29)
[2019-04-18] MEDS: Heparin 10,000 UNITS/ 10 ML VIAL SLOW IVP SCH (19:23)
[2019-04-18] MEDS ORDERED: ePHEDrine 50 MG/ML VIAL ONE (19:49)
[2019-04-18] MEDS ORDERED: Lidocaine 1% PF 5 ML VIAL ONE (19:49)
[2019-04-18] MEDS ORDERED: Rocuronium Bromide 10 MG/ML (10ML VIAL) ONE (19:49)
[2019-04-18] MEDS ORDERED: Calcium Chloride 1 GM/10 ML Abboject SYRINGE ONE (19:49)
[2019-04-18] MEDS ORDERED: PHENYLEPHRINE-NS 100 MCG/ML 10 ML SYRINGE ONE (19:49)
[2019-04-18] MEDS ORDERED: PROPOFOL 200 MG/20 ML VIAL ONE (19:49)
[2019-04-18] MEDS: Gabapentin 300 MG CAP PO SCH (20:47)
[2019-04-19] MEDS: Morphine 2 MG/ML SYRINGE SLOW IVP PRN ×2 (01:05→17:36)
[2019-04-19 02:24] LABS: #Eosinphils 0.2 thou/uL (0.0-0.7); #Lymphocytes 1.4 thou/uL (1.20-3.40); #Monocytes 0.7 thou/uL (0.11-0.59); #Neutrophils 5.5 thou/uL (1.40-6.50); %Basophils 0.2 % (0.0-1.0); %Eosinophils 2.9 % (0.0-10.0); %Lymphocytes 17.7 % (21.0-51.0); %Monocytes 8.8 % (0.0-10.0); %Neutrophils 70.3 % (42.0-75.0); Hemoglobin 6.8 g/dL (14.0-18.0); Mean Corpuscular HGB CONC 33.4 g/dL (32.0-36.0); Mean Corpuscular Hemoglobin 25.8 pg (27.0-31.0); Mean Corpuscular Volume 77.2 fL (78.0-98.0); Mean Platelet Volume 8.6 fL (7.4-10.4); Platelet Count 272 thou/uL (130-400); RBC Distribution Width 21.2 % (11.5-14.5); Red Blood Cell (RBC) Count 2.64 mill/uL (4.70-6.10); White Blood Cell (WBC) Count 7.8 thou/uL (4.8-10.8)
[2019-04-19] MEDS: Heparin 10,000 UNITS/ 10 ML VIAL SLOW IVP SCH ×2 (02:28→23:16)
[2019-04-19 02:31] LABS: ALT (SGPT) 8 U/L (8-55); AST (SGOT) 11 U/L (5-34); Albumin 2.7 g/dL (3.5-5.0); Alkaline Phosphatase 84 U/L (40-110); Anion Gap 16 mmol/L (10-20); BUN (Urea Nitrogen) 42 mg/dL (8.9-20.6); Bilirubin, Total 0.3 mg/dL (0.2-1.2); Calc. Creatinine Clearance 35 mL/min (70-130); Calcium 10.6 mg/dL (7.8-10.44); Carbon Dioxide 25 mmol/L (22-29); Chloride 102 mmol/L (98-107); Estimated GFR-MDRD 16; Globulin 4.1 g/dL (2.4-3.5); Glucose 230 mg/dL (70-105); Potassium 3.6 mmol/L (3.5-5.1); Protein, Total 6.8 g/dL (6.0-8.3); Sodium 139 mmol/L (136-145)
[2019-04-19] MEDS: Mometasone 100 MCG HFA INHALER INH SCH ×2 (06:26→18:45)
--- NOTE | 2019-04-19 07:36 | PRG ---
DATE OF SERVICE: 04/19/2019 HISTORY OF PRESENT ILLNESS: Mr. Ha is a 48-year-old male with multiple medical history including diabetes, coronary artery disease, end-stage renal disease, on dialysis, history of pulmonary embolism, and hypertension. He started with a chronic decubitus sacral ulcer. He underwent debridement of the sacral ulcer yesterday with Dr. Montez. Postop, the patient reports doing good. He reports pain as medium to tolerable of incisions of the surgical site. Other than that, he has been doing good. He developed no fever or shortness of breath. PHYSICAL EXAMINATION: VITAL SIGNS: Stable. Currently, he is lying down in bed with no acute respiratory distress. LUNGS: Clear bilaterally. HEART: Regular rate and rhythm. ABDOMEN: Soft and nondistended. LABORATORY DATA: Hemoglobin at 1 a.m. today shows hemoglobin of 6.8, white count 7.8, potassium 3.6, and creatinine 4.05. PLAN: Plan will be transfusing 1 unit of blood. Continue supportive care. The patient's plan to go to the OR today with Dr. Montez for colostomy. Job ID: [id number]
[2019-04-19] MEDS: Carvedilol 25 MG TAB PO SCH ×2 (08:01→19:45)
--- NOTE | 2019-04-19 08:07 | PDOC.FM ---
- Subjective Subjective: Doing well this morning. No acute events overnight. Herparin gtt stopped at 0400. Hb found to be 6.8, transfused 1u pRBC. States pain is well-controlled with IV morphine. No fevers/chills, n/v, CP, SOB overnight. Did have 1 BM overnight. Anxious however eager to return to surgery this morning for repeat debridement and continued treatment. In good spirits. - Objective MAR Reviewed: Yes Vital Signs & Weight: Vital Signs (12 hours) Temp Pulse Pulse Resp BP BP Pulse Ox 04/19/19 07:09 98.2 F 80 18 150/77 H 95 04/19/19 06:27 96 04/19/19 06:26 78 16 96 04/19/19 05:29 97.6 F 81 18 150/78 H 96 04/19/19 05:15 97.4 F L 65 18 158/74 H 95 04/19/19 03:25 98.5 F 68 18 137/75 96 Weight Admit Weight 117.934 kg Weight 111.13 kg Most Recent Monitor Data Heart Rate from ECG 79 NIBP 119/58 Respiration from ECG 18 I&O: 04/18/19 04/19/19 04/20/19 06:59 06:59 06:59 Intake Total 1330 1100 Output Total 4299 700 Balance -2969 400 Result Diagrams: 04/19/19 01:40 04/19/19 01:40 Phys Exam - Physical Examination Constitutional: NAD (resting comfortably in bed, good spirits) HEENT: PERRLA, moist MMs Neck: supple Respiratory: no wheezing, no rales, no rhonchi, clear to auscultation bilateral Cardiovascular: RRR, no significant murmur, no rub Gastrointestinal: soft, non-tender, no distention, positive bowel sounds Musculoskeletal: no edema Neurological: non-focal, normal sensation, moves all 4 limbs Psychiatric: normal affect, A&O x 3 Deviation from normal: Wound vac in place on sacral ulcer, edges clean, dry, no erythema -: Wound vac draining dark red drainage. Dx/Plan (1) Sacral osteomyelitis Code(s): M46.28 - OSTEOMYELITIS OF VERTEBRA, SACRAL AND SACROCOCCYGEAL REGION Status: Acute (2) CAD (coronary artery disease) Code(s): I25.10 - ATHSCL HEART DISEASE OF [place] CORONARY ARTERY W/O ANG PCTRS Status: Acute (3) Diabetes mellitus Code(s): E11.9 - TYPE 2 DIABETES MELLITUS WITHOUT COMPLICATIONS Status: Acute (4) ESRD (end stage renal disease) on dialysis Code(s): N18.6 - END STAGE RENAL DISEASE; Z99.2 - DEPENDENCE ON RENAL DIALYSIS Status: Acute (5) Pulmonary embolism Code(s): I26.99 - OTHER PULMONARY EMBOLISM WITHOUT ACUTE COR PULMONALE Status : Acute (6) Symptomatic anemia Code(s): D64.9 - ANEMIA, UNSPECIFIED Status: Acute - Plan Plan: 48 y/o M h/o PE, ESRD on HD, CHF, DMII admitted to medical inpatient for further treatment and evaluation of PE, Hypotension, sx anemia, and decubitus ulcer, found to have sacral osteo on MRI. #Sacral Decubitus Ulcer, stage 4, s/p debridement POD#6 and POD#1 repeat debridement - Dr. Allred, gen surg, consulted, debridement on 04/13/19, stage 4 ulcer. Repeat debridement on 04/19/19 demonstrated necrotic tissue requiring wide excision. Wound vac in place - dark red drainage. Returning to OR today for further debridement and possible diverting colostomy, apprec recs and assistance - Cont vanc (04/11) and Rocephin (04/17). S/p zosyn (04/11-04/17). Will need 6- 8wks of vanc + rocephin. - MRI pelvis concern for osteitis vs early osteo, increased signal in L gluteus possibly abscess - Wound care consulted - continue pain med regime, well-controlled #Symptomatic anemia->combination of beta thalassemia, acute blood loss, and anemia of chronic disease 2/2 ESRD - s/p 3 unit pRBC, 04/11, 04/14, 04/15 - Hb 6.8 this AM, tranfused 1u PRBC this AM - s/p 1 u plt 04/18 - Pt states he had colonoscopy and EGD in 2014 with colon polyps removed but otherwise negative. FOBT negative - Hb electrophoresis - positive for beta thalassemia minor - started on epogen by nephro #Pulmonary Embolism - [facility] for cholecystectomy, pt intubated and sedated for extended period of time. - Developed PE, sacral decubitus ulceration over the course of stay. - Home Eliquis 2.5 mg BID held - Was on heparin gtt with heparin window of holding heparin 4 hours around OR time, was stopped this morning at 0400, will cont post-op - CTA: Right lower lobe Pulmonary Emboli #Hypotension, resolved - at presentation 2/2 nitro, right fem line in place, no pressors required. BP stable currently, will monitor - Will exchange central line while in OR today #Hypercalcemia, hypoalbumin, hyerphosphatemia -> likely hypercalcemia 2/2 infection - Corrected Ca 12.3. PTH low at 15, prealbumin 10, phos 6.5, vit D 8.3. Retic 1.5 - Not consistent with ESRD secondary hyperparathyroidism, concern for malignant hypercalcemia vs infectious hypercalcemia - 1-25 vit D 4, SPEP and UPEP negative, Haptoglobin 360 likely acute phase reactant. Hb electrophoresis beta thal minor - PTHrP pending - CT chest, abd, pelvis - no significant lymphadenopathy or masses noted other than vague density in spleen - on Renvela and vit d 50,000u q7d #Urinary Retention - asymptomatic. Post void >1L, in-out 2.4L on 04/18 - started on flomax daily, will cont to monitor. No urination retention medications noted #Chronic Constipation - large bm with fleets on 04/15 - good bowel sounds, passing gas, abdominal pain resolved, KUB large stool burden - cont bowel regime, restarted home lactulose, monitor #HTN - initially held 2/2 hypotension, restarted coreg and imdur, BP still elevated, will consider restarting norvasc - cont to hold lisinopril, restart when appropriate #Atypical Chest Pain, resolved - chronic pleuritic pain 2/2 PE, cont eliquis - Indeterminate trops 2/2 ESRD, trended and stable, no acute EKG changes # ESRD on HD - HD every T,TR,Sat. On HD since 2017 - Dr. Marina Business Development Professional consulted, will cont dialysis, appreciate recs. Monitoring lytes #DM II, insulin dependent - Hyperglycemia protocol, SSI, ACHS accuchecks. CC diet #CORNELIUS - CPAP QHS, CPAP HS #Hx of CAD, with [place] - S/P X3 stents. [place] in 2018. Cont effient and lasix Code Status: Full code Diet: NPO for surgery, CC/renal-high protein after DVT ppx: Heparin gtt for PE, hold 4 hours pre and post op Dispo: Improved and stable. Admitted to medical inpatient. Debridement POD#6 and #1, sacral MRI concern for osteo. Return to OR today for further debridement. Cont IV abx, will need 6-8 weeks for osteo of sacrum. Addendum - Attending - Attending Attestation Date/Time: 04/19/19 1650 I personally evaluated the patient and discussed the management with Dr. Flores. I agree with the History, Examination, Assessment and Plan documented above with any addition or exceptions noted below. Patient is post op. Nurse is communicating with surg team for post op orders. I am arranging for anesthesia consult for FISHER EEL SPEAR consideration. patient is on epo for anemia due to multiple etiologies. Advance diet per surg.
[2019-04-19] MEDS: Metoclopramide HCl 10 MG TAB PO SCH ×4 (08:16→19:45)
[2019-04-19] MEDS: Sevelamer Carbonate 800 MG TAB PO SCH ×3 (08:16→17:52)
[2019-04-19] MEDS: Furosemide 40 MG TAB PO SCH (08:26)
[2019-04-19] MEDS: Isosorbide Mononitrate (ER) 30 MG TAB PO SCH (08:26)
[2019-04-19] MEDS: Famotidine 20 MG TAB PO SCH (08:26)
[2019-04-19] MEDS: Folic Acid/Vit B Comp W-C PO SCH (08:26)
[2019-04-19] MEDS: Polyethylene Glycol 3350 17 GM Packet PO SCH (08:26)
[2019-04-19] MEDS: Senokot S 8.6-50 MG TAB PO SCH ×2 (08:27→19:45)
[2019-04-19] MEDS ORDERED: Morphine 2 MG/ML SYRINGE ONE ×2 (09:04→10:23)
[2019-04-19] MEDS ORDERED: Phenylephrine HCL 10 MG/ML VIAL ONE (10:25)
[2019-04-19] MEDS ORDERED: Fentanyl 100 MCG/2 ML VIAL ONE ×5 (10:25→14:44)
[2019-04-19] MEDS ORDERED: SUGAMMADEX SODIUM 200 MG/2 ML VIAL ONE (10:42)
--- NOTE | 2019-04-19 11:16 | PRG ---
DATE OF SERVICE: 04/19/2019 SUBJECTIVE: Patient was seen and examined at bedside and overnight events noted. Patient denies any shortness of breath or chest pain or palpitation. No history of nausea or vomiting or diarrhea or fever or chills or cramps. OBJECTIVE: GENERAL: This is a well-built male, in no apparent distress. VITAL SIGNS: Temperature 98.2. Heart rate 80. Respiratory rate 18. Blood pressure 150/77. HEENT: Atraumatic, normocephalic. Oral mucosa is moist NECK: Supple. CARDIOVASCULAR: S1, S2 heard. Rate and rhythm regular. RESPIRATORY: Clear to auscultation. GASTROINTESTINAL: Abdomen is soft. MUSCULOSKELETAL: No tenderness. No edema. DERMATOLOGIC: No skin rash. NEUROLOGIC: Alert and awake and oriented X3. No focal neurologic deficits. Moving all the extremities. PSYCHIATRIC: Mood and affect normal. LABORATORY DATA: Potassium is 3.6, BUN is 42, and creatinine is 4.05. ASSESSMENT AND PLAN: 1. End-stage renal disease, continue dialysis. 2. Edema. 3. History of hypertension. 4. Chronic anemia. Continue dialysis as tolerated. Job ID: [id number]
[2019-04-19] MEDS ORDERED: Lidocaine 1% PF 5 ML VIAL ONE (11:20)
[2019-04-19] MEDS ORDERED: Rocuronium Bromide 10 MG/ML (10ML VIAL) ONE (11:20)
[2019-04-19] MEDS ORDERED: PROPOFOL 200 MG/20 ML VIAL ONE (11:20)
[2019-04-19] MEDS: Tamsulosin HCl 0.4 MG CAP PO SCH (11:30)
--- NOTE | 2019-04-19 12:35 | PRG ---
DATE OF SERVICE: 04/19/2019 Mr. Ha had to be taken again to surgery this morning for more debridement of his sacral wound. He was noted to have some oozing and I would suggest we give him a unit or 2 of FFP since he has had 6 units of packed red blood cells. His overall situation remains serious and precarious. We are also continuing broad-spectrum antibiotics and dialysis. Job ID: [id number]
[2019-04-19] MEDS ORDERED: HYDROmorphone 2 MG/ML VIAL SLOW IVP PRN (14:28)
[2019-04-19] MEDS ORDERED: Promethazine HCl 25 MG/ML VIAL IM PRN ×2 (14:28→17:15)
[2019-04-19] MEDS ORDERED: Ondansetron HCl/PF 4 MG/2 ML Vial IVP PRN (14:28)
[2019-04-19] MEDS ORDERED: Promethazine HCl 25 MG/ML VIAL SLOW IVP PRN (14:28)
[2019-04-19] MEDS ORDERED: Naloxone HCl 0.4 mg/ml Vial IV PRN (17:15)
[2019-04-19] MEDS ORDERED: diphenhydrAMINE 50 MG/ML VIAL IVP PRN (17:15)
[2019-04-19] MEDS ORDERED: Ondansetron PF 4 MG/2 ML Vial IVP PRN (17:15)
[2019-04-19] MEDS ORDERED: Communication Order-Pharmacy FS SCH (17:15)
[2019-04-19] MEDS ORDERED: diphenhydrAMINE 50 MG/ML VIAL IM PRN (17:15)
[2019-04-19] MEDS ORDERED: Zolpidem Tartrate 5 MG TAB PO PRN (17:15)
--- NOTE | 2019-04-19 17:19 | OP ---
DATE OF PROCEDURE: 04/19/2019 PREOPERATIVE DIAGNOSES: 1. Necrotizing 24 x 15.6 x 3.5 cm sacral decubitus wound. 2. Infected right femoral central venous catheter. POSTOPERATIVE DIAGNOSES: 1. Necrotizing 24 x 15.6 x 3.5 cm sacral decubitus wound. 2. Infected right femoral central venous catheter. PROCEDURES PERFORMED: 1. Removal of right femoral central venous catheter. 2. Placement of triple-lumen left subclavian central venous catheter. 3. Excisional debridement of 24 x 15.6 x 3.5 cm necrotizing sacral decubitus wound. 4. Loop transverse colostomy through a minilaparotomy. ANESTHESIA: General endotracheal. ESTIMATED BLOOD LOSS: 200 mL. FLUIDS GIVEN: 1000 mL crystalloids, 2 units packed red blood cells, and 1 unit platelets. COUNT: Sponge and instrument counts were verified as correct x2. COMPLICATIONS: None apparent at the time of operation. INDICATIONS FOR OPERATION: A 48-year-old man, an inmate of a correctional facility with previous necrotizing soft tissue wound of the sacrum and gluteal folds. The patient had previously undergone two staged excisional debridement of the said wound. He has returned to the operating room today for evaluation and further debridement. Additionally, previously placed right femoral arterial catheter was noted with some purulence at the catheter exit site. Therefore, the catheter required removal. Findings are consistent with residual necrotic sacral and medial gluteal soft tissue wound. DESCRIPTION OF PROCEDURE: Informed consent was obtained from the patient, who was brought to the operating room and placed in supine position. Following general anesthesia, the patient was placed in a prone yonatan-knife position. The previous wound VAC dressing was removed from the sacral wound. The wound was widely sterilely prepped and draped in usual fashion. Residual necrotic tissues were noted in the 9 o'clock position of the wound. This involved the subcutaneous tissues and muscle as well as the overlying skin. This was sharply debrided using scalpel with hemostasis achieved using cautery. Deep necrotic muscle tissues were sharply debrided using Metzenbaum scissors. Specimen was passed off the operative field followed by transmission of pathology present. The piece of the necrotic muscle was also sent for microbiology. Once debridement was completed, hemostasis was noted in place. Wound was temporary closed using wound VAC applied by the wound nurses. The patient was then flipped over to the supine position. The previous right femoral arterial catheter was removed and hemostasis achieved by direct pressure. I then turned my attention to the left chest wall, which was sterilely prepped and draped in usual fashion. This was using the different gown, glows, and handwashing technique. The following appropriate prepping and draping of the left chest wall. The left subclavian vein was cannulated with an 18-gauge introducer needle returning dark venous blood. Guidewire was passed through the needle and placed in the left subclavian vein without resistance. Needle was withdrawn over the guidewire. A stab incision was made adjacent to the guidewire using an 11 scalpel. Dilator was passed over the guidewire dilating the subcutaneous tissues. Dilator was removed and a triple-lumen central venous catheter was advanced over the guidewire and placed in the left subclavian vein without resistance and stopping at the 18 cm alberta. Guidewire was removed. Dark venous blood was aspirated from all three ports, which were individually flushed with saline. The catheter was secured to anterior chest wall using 3-0 silk suture at two points. Sterile dressings were applied. I turned my attention then to the abdomen, which was sterilely prepped and draped in usual fashion. A mini midline incision was made approximately 3 cm inferior to the xiphoid process in the midline. This was accomplished using 10 scalpel. Incision was carried through subcutaneous tissues maintaining hemostasis using cautery. The fascia was incised midline exposing the peritoneum beneath, which was grasped x2 with hemostats. The peritoneal cavity was sharply entered using Metzenbaum scissors. Use two Barragan retractors to gain exposure. The omentum was manipulated into the wound and transverse colon was readily identified, grasped with a Cheryl forceps and elevated. Omentum was then returned to the peritoneal cavity. Fascia was reapproximated superiorly and inferior to this loop of transverse colon using interrupted sutures of 0 Vicryl. The bridge was passed to hold the loop of transverse colon in place. The skin incisions were then closed superiorly and proximally using interrupted sutures of 3-0 Vicryl in subcuticular fashion. Dermabond was applied over this incision. I then made an incision over the tenia and the functional Blanca colostomy was protected using interrupted sutures of 3-0 Vicryl. The bridge was removed. Ostomy appliance was put in place. The patient tolerated this operation without any apparent complication and was returned to recovery room in satisfactory condition. Job ID: [id number]
[2019-04-19 17:47] LABS: Hemoglobin 9.4 g/dL (14.0-18.0); Hemoglobin 9.5 g/dL (14.0-18.0); Platelet Count 309 thou/uL (130-400)
[2019-04-19] MEDS: Gabapentin 300 MG CAP PO SCH (19:45)
[2019-04-19] MEDS: cefTRIAXone\\ROCEPHIN 2 GM in Sodium Chloride 0.9% 100 ML IVPB SCH (19:45)
[2019-04-19] MEDS: fentaNYL Citrate/PF 2,000 MCG in Sodium Chloride 0.9% 60 ML IV PRN (20:34)
[2019-04-19] MEDS: Heparin 25,000 units/D5W 500 ML IVPB SCH (23:17)
[2019-04-20 05:37] LABS: #Eosinphils 0.3 thou/uL (0.0-0.7); #Lymphocytes 1.6 thou/uL (1.20-3.40); #Monocytes 0.9 thou/uL (0.11-0.59); #Neutrophils 7.1 thou/uL (1.40-6.50); %Basophils 0.3 % (0.0-1.0); %Eosinophils 2.6 % (0.0-10.0); %Lymphocytes 15.9 % (21.0-51.0); %Monocytes 8.7 % (0.0-10.0); %Neutrophils 72.5 % (42.0-75.0); Hemoglobin 8.6 g/dL (14.0-18.0); Mean Corpuscular HGB CONC 32.1 g/dL (32.0-36.0); Mean Corpuscular Hemoglobin 25.6 pg (27.0-31.0); Mean Corpuscular Volume 79.9 fL (78.0-98.0); Mean Platelet Volume 8.6 fL (7.4-10.4); Platelet Count 305 thou/uL (130-400); RBC Distribution Width 20.6 % (11.5-14.5); Red Blood Cell (RBC) Count 3.36 mill/uL (4.70-6.10); White Blood Cell (WBC) Count 9.8 thou/uL (4.8-10.8)
[2019-04-20 05:59] LABS: ALT (SGPT) 7 U/L (8-55); AST (SGOT) 11 U/L (5-34); Albumin 2.7 g/dL (3.5-5.0); Alkaline Phosphatase 74 U/L (40-110); Anion Gap 14 mmol/L (10-20); BUN (Urea Nitrogen) 49 mg/dL (8.9-20.6); Bilirubin, Total 0.4 mg/dL (0.2-1.2); Calc. Creatinine Clearance 32 mL/min (70-130); Calcium 10.2 mg/dL (7.8-10.44); Carbon Dioxide 25 mmol/L (22-29); Chloride 101 mmol/L (98-107); Estimated GFR-MDRD 14; Globulin 4.1 g/dL (2.4-3.5); Glucose 182 mg/dL (70-105); Potassium 3.9 mmol/L (3.5-5.1); Protein, Total 6.8 g/dL (6.0-8.3); Sodium 136 mmol/L (136-145)
[2019-04-20] MEDS: Heparin 10,000 UNITS/ 10 ML VIAL SLOW IVP SCH (06:34)
[2019-04-20] MEDS: Mometasone 100 MCG HFA INHALER INH SCH ×2 (07:03→18:58)
--- NOTE | 2019-04-20 07:40 | PDOC.FM ---
- Subjective Subjective: Doing well this morning. No acute events overnight. VETERINARY VIROLOGIST pump in place, pain well -controlled. Denies any Fever/chills, n/v, CP, SOB. Tolerated surgery well yesterday, ostomy in place, femoral line removed and new left subclavian in place. Dialysis today. - Objective MAR Reviewed: Yes Vital Signs & Weight: Vital Signs (12 hours) Temp Pulse Resp BP Pulse Ox 04/20/19 04:00 99.3 F 88 18 135/66 97 04/20/19 00:00 99.0 F 87 18 149/72 H 98 04/19/19 20:00 98.7 F 85 18 151/79 H 100 Weight Admit Weight 117.934 kg Weight 111.13 kg Most Recent Monitor Data Heart Rate from ECG 79 NIBP 119/58 Respiration from ECG 18 I&O: 04/19/19 04/20/19 04/21/19 06:59 06:59 06:59 Intake Total 1100 480 Output Total 700 Balance 400 480 Result Diagrams: 04/20/19 05:10 04/20/19 05:10 Phys Exam - Physical Examination Constitutional: NAD (resting comfortably in bed, VETERINARY VIROLOGIST in place, worse worse with movement) HEENT: PERRLA, oral pharynx no lesions dry mucous membranes Neck: supple Respiratory: no wheezing, no rales, no rhonchi, clear to auscultation bilateral Cardiovascular: RRR, no significant murmur, no rub Gastrointestinal: soft, positive bowel sounds appropriately TTP around ostomy, Ostomy c/d/i, no erythema Musculoskeletal: no edema foot wounds c/d/i with dressing. Amp of R great toe Psychiatric: normal affect, A&O x 3 Deviation from normal: Large decubitus ulcer on sacral, stage 4, wound vac in place -: edges without erythema. Dx/Plan (1) Sacral osteomyelitis Code(s): M46.28 - OSTEOMYELITIS OF [place], SACRAL AND SACROCOCCYGEAL REGION Status: Acute (2) CAD (coronary artery disease) Code(s): I25.10 - ATHSCL HEART DISEASE OF [place] CORONARY ARTERY W/O ANG PCTRS Status: Acute (3) Diabetes mellitus Code(s): E11.9 - TYPE 2 DIABETES MELLITUS WITHOUT COMPLICATIONS Status: Acute (4) ESRD (end stage renal disease) on dialysis Code(s): N18.6 - END STAGE RENAL DISEASE; Z99.2 - DEPENDENCE ON RENAL DIALYSIS Status: Acute (5) Pulmonary embolism Code(s): I26.99 - OTHER PULMONARY EMBOLISM WITHOUT ACUTE COR PULMONALE Status : Acute (6) Symptomatic anemia Code(s): D64.9 - ANEMIA, UNSPECIFIED Status: Acute - Plan Plan: 48 y/o M h/o PE, ESRD on HD, CHF, DMII admitted to medical inpatient for further treatment and evaluation of PE, Hypotension, sx anemia, and stage 4 decubitus ulcer, found to have sacral osteo on MRI. #Sacral Decubitus Ulcer, stage 4, s/p multiple debridements POD#7, POD#2, and POD #1 - Dr. Allred, gen surg, consulted, debridement on 04/13, 04/19, and 04/20. Demonstrated necrotic tissue requiring wide excision. Wound vac in place - dark red drainage. Diverting colostomy in place. Apprec recs and assistance. - Cont vanc (04/11) and Rocephin (04/17). S/p zosyn (04/11-04/17). Will need 6- 8wks of vanc + rocephin for osteo - MRI pelvis concern for osteitis vs early osteo, increased signal in L gluteus possibly abscess - Wound Cx E. Coli, susceptible to Rocephin, will cont current abx regime - Wound care consulted - continue pain med regime with VETERINARY VIROLOGIST pump, well-controlled #Symptomatic anemia->combination of beta thalassemia, acute blood loss, and anemia of chronic disease 2/2 ESRD - s/p 7 unit pRBC, 04/11, 04/14, 04/15, 04/18, and 3u 04/19 - Hb 8.6 this AM, will cont to monitor - s/p 1 u plt 04/18 - Pt states he had colonoscopy and EGD in 2014 with colon polyps removed but otherwise negative per pt. FOBT negative - Hb electrophoresis - positive for beta thalassemia minor - started on epogen by nephro #Pulmonary Embolism - [facility] for cholecystectomy, pt intubated and sedated for extended period of time. - Developed PE, sacral decubitus ulceration over course of stay. - Home Eliquis 2.5 mg BID held - Heparin gtt with heparin window if return to OR warranted - CTA: Right lower lobe Pulmonary Emboli #Hypotension, resolved - at presentation 2/2 nitro given, right fem line placed, no pressors required. BP stable currently, will monitor - Right fem line removed on 04/19. Left subclavian CL in place (04/19) #Hypercalcemia, hypoalbumin, hyerphosphatemia -> likely hypercalcemia 2/2 infection - Corrected Ca 12.3. PTH low at 15, prealbumin 10, phos 6.5, vit D 8.3. Retic 1.5 - Not consistent with ESRD secondary hyperparathyroidism, concern for malignant hypercalcemia vs infectious hypercalcemia - 1-25 vit D 4, SPEP and UPEP negative, Haptoglobin 360 likely acute phase reactant. Hb electrophoresis beta thal minor - PTHrP and 24-hr urine pending - CT chest, abd, pelvis - no significant lymphadenopathy or masses noted other than vague density in spleen - on Renvela and vit d 50,000u q7d #Urinary Retention - asymptomatic. Post void >1L, in-out 2.4L on 04/18 - started on flomax daily, will cont to monitor with bladder scans. No urination retention medications noted #Chronic Constipation, s/p diverting colostomy - good bowel sounds, passing gas, ostomy clean, pink. Dressing c/d/i. #HTN - initially held 2/2 hypotension, restarted coreg and imdur. BP still elevated, restarted home norvasc. Consider restarting lisinopril if warranted. #Atypical Chest Pain, resolved - chronic pleuritic pain 2/2 PE, cont anticoagulation. Trops trended and stable 2/2 ESRD, no acute EKG changes at admission. # ESRD on HD - HD every T,TR,Sat. On HD since 2017 - Dr. Marina Patient Biller consulted, will cont dialysis, appreciate recs. Monitoring lytes #DM II, insulin dependent - Hyperglycemia protocol, SSI, ACHS accuchecks. CC diet #CORNELIUS - CPAP QHS, CPAP HS #Hx of CAD, with [place] - S/P X3 stents. [place] in 2018. Cont effient and lasix Code Status: Full code Diet: CC/renal-high protein DVT ppx: Heparin gtt for PE, hold 4 hours pre and post op Dispo: Improved and stable. Admitted to medical inpatient. Debridement POD#7, #2 , and #1, sacral MRI concern for osteo. Cont IV abx, will need 6-8 weeks. Apprec surgery recommendations and assistance.
[2019-04-20 07:45] LABS: Vancomycin, Trough 13.1 ug/mL
[2019-04-20] MEDS: Folic Acid/Vit B Comp W-C PO SCH (09:39)
[2019-04-20] MEDS: Senokot S 8.6-50 MG TAB PO SCH ×2 (09:40→21:04)
[2019-04-20] MEDS: Amlodipine 10 MG TAB PO SCH (09:40)
[2019-04-20] MEDS: Metoclopramide HCl 10 MG TAB PO SCH ×4 (09:40→21:04)
[2019-04-20] MEDS: Polyethylene Glycol 3350 17 GM Packet PO SCH (09:40)
[2019-04-20] MEDS: Famotidine 20 MG TAB PO SCH (09:40)
[2019-04-20] MEDS: Isosorbide Mononitrate (ER) 30 MG TAB PO SCH (09:40)
[2019-04-20] MEDS: Furosemide 40 MG TAB PO SCH (09:40)
[2019-04-20] MEDS: Sevelamer Carbonate 800 MG TAB PO SCH ×3 (09:40→14:57)
[2019-04-20] MEDS: Ergocalciferol 1.25 MG(50,000 UNITS) CAP PO SCH (09:40)
[2019-04-20] MEDS: Carvedilol 25 MG TAB PO SCH ×2 (09:40→21:03)
[2019-04-20] MEDS ORDERED: Heparin 10,000 UNITS/ 10 ML VIAL ONE (10:00)
--- NOTE | 2019-04-20 10:54 | PRG ---
DATE OF SERVICE: SUBJECTIVE: Patient was seen and examined at bedside and overnight events noted. Patient denies any shortness of breath or chest pain or palpitation. No history of nausea or vomiting or diarrhea or fever or chills or cramps. OBJECTIVE: GENERAL: This is a well-built male, in no apparent distress. VITAL SIGNS: Temperature 99.3. Heart rate . Respiratory rate 18. Blood pressure 135/66. HEENT: Atraumatic, normocephalic. Oral mucosa is moist NECK: Supple. CARDIOVASCULAR: S1, S2 heard. Rate and rhythm regular. RESPIRATORY: Clear to auscultation. GASTROINTESTINAL: Abdomen is soft. MUSCULOSKELETAL: No tenderness. No edema. DERMATOLOGIC: No skin rash. NEUROLOGIC: Alert and awake and oriented X3. No focal neurologic deficits. Moving all the extremities. PSYCHIATRIC: Mood and affect normal. LABORATORY DATA: Potassium 3.9, BUN is 49, and creatinine is 4.4. ASSESSMENT AND PLAN: 1. End-stage renal disease. Continue dialysis Wednesday, , Wednesday. 2. Edema, we will remove fluid as tolerated. 3. History of hypertension, stable. 4. Chronic anemia. We will add Epogen with dialysis. 5. Continue to monitor. Continue Epogen with dialysis 3 times a week. We will follow. Job ID: [id number]
--- NOTE | 2019-04-20 11:41 | PRG ---
DATE OF SERVICE: 04/20/2019 SUBJECTIVE: Mr. Ha is a 48-year-old man, who is postoperative day #1, status post second excisional debridement of necrotizing soft tissue wound involving the sacrum and bilateral medial gluteal folds. He is also postop day #1, status post loop transverse colostomy. This morning, he is awake and alert. He reports better pain control. OBJECTIVE: VITAL SIGNS: Today include blood pressure 135/66, pulse 88, respiratory rate is 18, temperature is 99.3 degrees Fahrenheit with maximum temperature in last 24 hours 99.3 degrees Fahrenheit. HEART: Reveals regular rate and rhythm. LUNGS: Clear to auscultation bilaterally. Breathing, regular and nonlabored. ABDOMEN: Soft, nontender, nondistended. The colostomy is viable and functional with stool and gas. EXTREMITIES: The sacral wound is temporarily closed using wound VAC. LABORATORY STUDIES: Today includes a CBC with 9800 white blood cells, hemoglobin and hematocrit 8.6 and 26.8 respectively, platelet count is stable at 305,000. Metabolic profile; sodium is 136, potassium is 3.9, chloride is 101, bicarb is 25, BUN is 49, creatinine is 4.49, glucose is 182. IMPRESSIONS: 1. Postop day #1, status post repeat excisional debridement of sacral gluteal necrotizing soft tissue wound. 2. Postop day #1, status post loop transverse colostomy. Note that the tissue culture from yesterday was positive for E coli, sensitive to current antibiotic regimen. PLAN: 1. Continue with local wound care using wound VAC. 2. The patient will hopefully start hyperbaric treatment. I have spoken with Dr. Linares, who will be available to provide surgical coverage for this patient in my absence. Dr. Linares will evaluate the wound, doing dressing changes tomorrow. Job ID: [id number]
--- NOTE | 2019-04-20 11:57 | PRG ---
DATE OF SERVICE: 04/20/2019 Mr. Ha had required further debridement of his wound. He is a very complicated case in that he is on a heparin infusion for PE. He is on dialysis. He is bleeding rather briskly at times from his wound site. We therefore consulted with Dr. Montez about giving FFP since he has had 7 units of packed red blood cells. Dr. Montez suggested that we give the FFP. We will give him 2 units. Job ID: [id number]
[2019-04-20] MEDS: Heparin 25,000 units/D5W 500 ML IVPB SCH (12:00)
[2019-04-20] MEDS: Tamsulosin HCl 0.4 MG CAP PO SCH (13:49)
[2019-04-20] MEDS: HumaLOG 300 UNITS/3 ML VIAL SC PRN (13:50)
[2019-04-20 14:44] LABS: Platelet Count 289 thou/uL (130-400)
[2019-04-20] MEDS: EPOETIN ALFA-EPBX (ESRD) 10,000 UNIT/ML VIAL IVP SCH (16:43)
[2019-04-20] MEDS: fentaNYL Citrate/PF 2,000 MCG in Sodium Chloride 0.9% 60 ML IV PRN (16:59)
[2019-04-20] MEDS: Acetaminophen 500 MG TAB PO SCH (18:09)
[2019-04-20] MEDS: Vancomycin HCl 1 GM in Premix Bag 1 BAG IVPB SCH (18:16)
[2019-04-20 20:28] LABS: PTT 126.6 SEC (22.9-36.1)
[2019-04-20] MEDS: Gabapentin 300 MG CAP PO SCH (21:04)
[2019-04-20] MEDS: cefTRIAXone\\ROCEPHIN 2 GM in Sodium Chloride 0.9% 100 ML IVPB SCH (21:04)
[2019-04-21] MEDS: Acetaminophen 500 MG TAB PO SCH ×4 (01:19→17:19)
[2019-04-21] MEDS: Heparin 25,000 units/D5W 500 ML IVPB SCH ×2 (01:20→19:30)
[2019-04-21 05:13] LABS: #Eosinphils 0.4 thou/uL (0.0-0.7); #Lymphocytes 1.5 thou/uL (1.20-3.40); #Monocytes 0.7 thou/uL (0.11-0.59); #Neutrophils 5.6 thou/uL (1.40-6.50); %Basophils 0.4 % (0.0-1.0); %Eosinophils 4.4 % (0.0-10.0); %Lymphocytes 17.9 % (21.0-51.0); %Monocytes 9.1 % (0.0-10.0); %Neutrophils 68.2 % (42.0-75.0); Hemoglobin 8.4 g/dL (14.0-18.0); Mean Corpuscular HGB CONC 32.1 g/dL (32.0-36.0); Mean Corpuscular Hemoglobin 25.8 pg (27.0-31.0); Mean Corpuscular Volume 80.4 fL (78.0-98.0); Mean Platelet Volume 8.5 fL (7.4-10.4); Platelet Count 290 thou/uL (130-400); RBC Distribution Width 20.5 % (11.5-14.5); Red Blood Cell (RBC) Count 3.25 mill/uL (4.70-6.10); White Blood Cell (WBC) Count 8.1 thou/uL (4.8-10.8)
[2019-04-21 05:34] LABS: ALT (SGPT) 10 U/L (8-55); AST (SGOT) 10 U/L (5-34); Albumin 2.6 g/dL (3.5-5.0); Alkaline Phosphatase 77 U/L (40-110); Anion Gap 12 mmol/L (10-20); BUN (Urea Nitrogen) 24 mg/dL (8.9-20.6); Bilirubin, Total 0.3 mg/dL (0.2-1.2); Calc. Creatinine Clearance 49 mL/min (70-130); Calcium 10.1 mg/dL (7.8-10.44); Carbon Dioxide 27 mmol/L (22-29); Chloride 101 mmol/L (98-107); Estimated GFR-MDRD 24; Globulin 4.3 g/dL (2.4-3.5); Glucose 167 mg/dL (70-105); Potassium 3.2 mmol/L (3.5-5.1); Protein, Total 6.9 g/dL (6.0-8.3); Sodium 137 mmol/L (136-145)
[2019-04-21] MEDS: Heparin 10,000 UNITS/ 10 ML VIAL SLOW IVP SCH ×2 (06:04→21:32)
[2019-04-21] MEDS: Mometasone 100 MCG HFA INHALER INH SCH ×2 (07:03→22:02)
[2019-04-21] MEDS: Polyethylene Glycol 3350 17 GM Packet PO SCH (08:29)
[2019-04-21] MEDS: Famotidine 20 MG TAB PO SCH (08:29)
[2019-04-21] MEDS: Sevelamer Carbonate 800 MG TAB PO SCH ×3 (08:30→17:19)
[2019-04-21] MEDS: Folic Acid/Vit B Comp W-C PO SCH (08:30)
[2019-04-21] MEDS: Amlodipine 10 MG TAB PO SCH (08:30)
[2019-04-21] MEDS: Furosemide 40 MG TAB PO SCH (08:30)
[2019-04-21] MEDS: Senokot S 8.6-50 MG TAB PO SCH ×2 (08:30→21:03)
[2019-04-21] MEDS: Carvedilol 25 MG TAB PO SCH ×2 (08:30→21:03)
[2019-04-21] MEDS: Isosorbide Mononitrate (ER) 30 MG TAB PO SCH (08:30)
[2019-04-21] MEDS: Metoclopramide HCl 10 MG TAB PO SCH ×4 (08:30→21:03)
--- NOTE | 2019-04-21 08:30 | PDOC.FM ---
- Subjective Subjective: Doing well this morning. No acute events overnight. Had consistent urinary retention yesterday with high post-void residuals, thus tapia placed. Pain is well-controlled with MARITIME OFFICER. No fever/chills, SOB, n/v, CP. - Objective MAR Reviewed: Yes Vital Signs & Weight: Vital Signs (12 hours) Temp Pulse Resp BP Pulse Ox 04/21/19 08:00 98.1 F 77 20 165/89 H 97 04/21/19 07:03 79 16 97 04/21/19 04:00 99.1 F 83 18 158/74 H 94 L Weight Admit Weight 117.934 kg Weight 111.13 kg Most Recent Monitor Data Heart Rate from ECG 76 NIBP 125/69 Respiration from ECG 16 I&O: 04/20/19 04/21/19 04/22/19 06:59 06:59 06:59 Intake Total 480 2300 Output Total 2050 Balance 480 250 Result Diagrams: 04/21/19 04:35 04/21/19 04:35 Phys Exam - Physical Examination Constitutional: NAD (resting comfortably in bed) Neck: supple Respiratory: no wheezing, no rales, no rhonchi, clear to auscultation bilateral Cardiovascular: RRR, no significant murmur, no rub Gastrointestinal: soft, non-tender, no distention, positive bowel sounds ostomy in place, skin surrouding c/d. Bag in place. Normal appearing stool. Musculoskeletal: no edema Neurological: non-focal, normal sensation, moves all 4 limbs Psychiatric: normal affect, A&O x 3 Deviation from normal: Left subclavian in place. Wound vac on decubitus in place , edges c/d/i. -: Output 300cc dark red drainage in previous 24 hours, wound recheck today. Dx/Plan (1) Sacral osteomyelitis Code(s): M46.28 - OSTEOMYELITIS OF VERTEBRA, SACRAL AND SACROCOCCYGEAL REGION Status: Acute (2) CAD (coronary artery disease) Code(s): I25.10 - ATHSCL HEART DISEASE OF [place] CORONARY ARTERY W/O ANG PCTRS Status: Acute (3) Diabetes mellitus Code(s): E11.9 - TYPE 2 DIABETES MELLITUS WITHOUT COMPLICATIONS Status: Acute (4) ESRD (end stage renal disease) on dialysis Code(s): N18.6 - END STAGE RENAL DISEASE; Z99.2 - DEPENDENCE ON RENAL DIALYSIS Status: Acute (5) Pulmonary embolism Code(s): I26.99 - OTHER PULMONARY EMBOLISM WITHOUT ACUTE COR PULMONALE Status : Acute (6) Symptomatic anemia Code(s): D64.9 - ANEMIA, UNSPECIFIED Status: Acute - Plan Plan: 48 y/o M h/o PE, ESRD on HD, CHF, DMII admitted to medical inpatient for further treatment and evaluation of PE, Hypotension, sx anemia, and stage 4 decubitus ulcer, found to have sacral osteo on MRI. #Sacral Decubitus Ulcer, stage 4, s/p multiple debridements POD#8, POD#3, and POD #2 - Dr. Allred, gen surg, consulted, debridement on 04/13, 04/19, and 04/20. Demonstrated necrotic tissue requiring wide excision. Wound vac in place - dark red drainage. Diverting colostomy in place. Apprec recs and assistance. Dr. Linares is now covering, will await further recs. - Cont vanc (04/11) and Rocephin (04/17). S/p zosyn (04/11-04/17). Will need 6- 8wks of abx for osteo - MRI pelvis concern for osteitis vs early osteo - Wound Cx x2 E. Coli, susceptible to Rocephin. Also GPC and GPR. Will await final cx results and will cont current abx regime - Wound care consulted, hyperbaric treatments, apprec assistance - continue pain med regime with MARITIME OFFICER pump, well-controlled #Symptomatic anemia->combination of beta thalassemia, acute blood loss, and anemia of chronic disease 2/2 ESRD - s/p 7 unit pRBC; 04/11, 04/14, 04/15, 04/18, and 3u 04/19 - Hb 8.6 this AM, will cont to monitor - s/p 2 u plt;04/18, 04/19 - s/p 2u FFP; 04/20 x2 - Pt states he had colonoscopy and EGD in 2014 with colon polyps removed but otherwise negative per pt. FOBT negative - Hb electrophoresis - positive for beta thalassemia minor - started on epogen by nephro #Pulmonary Embolism - [facility] for cholecystectomy, pt intubated and sedated for extended period of time. - Developed PE, sacral decubitus ulceration over course of stay. - Home Eliquis 2.5 mg BID held - Th Heparin gtt with heparin window if return to OR warranted, held 4 hours pre -op and restarted 6 hours post-op - CTA: Right lower lobe Pulmonary Emboli #Hypotension, resolved - at presentation 2/2 nitro given, right fem line placed, no pressors required. BP stable currently, will monitor - Right fem line removed on 04/19. Left subclavian CL in place (04/19), c/d/i #Hypercalcemia, hypoalbumin, hyerphosphatemia -> likely hypercalcemia 2/2 infection - Corrected Ca 12.3. PTH low at 15, prealbumin 10, phos 6.5, vit D 8.3. Retic 1.5 - Not consistent with ESRD secondary hyperparathyroidism, concern for malignant hypercalcemia vs infectious hypercalcemia - 1-25 vit D 4, SPEP and UPEP negative, Haptoglobin 360 likely acute phase reactant. Hb electrophoresis beta thal minor - PTHrP and 24-hr urine pending - CT chest, abd, pelvis - no significant lymphadenopathy or masses noted other than vague density in spleen - on Renvela and vit d 50,000u q7d #Urinary Retention - Symptoms of urinary overflow, Consistently elevated post-void residuals - started on flomax daily, tapia place 04/19. Will collect 24hr urine for study and attempt to bladder train and remove tapia when possible #Chronic Constipation, s/p diverting colostomy - good bowel sounds, passing gas, ostomy clean, pink. Shahida-appearing stool. Dressing c/d/i. #HTN - initially held 2/2 hypotension, restarted coreg, imdur, norvasc. Will monitor. Consider restarting lisinopril if warranted. #Atypical Chest Pain, resolved - chronic pleuritic pain 2/2 PE, cont anticoagulation. Trops trended and stable 2/2 ESRD, no acute EKG changes at admission. # ESRD on HD - HD every T,TR,Sat. On HD since 2017 - Dr. Marina Shell Mold Bonder consulted, will cont dialysis, appreciate recs. Monitoring lytes #DM II, insulin dependent - Hyperglycemia protocol, SSI, ACHS accuchecks. CC diet #CORNELIUS - CPAP QHS, CPAP HS #Hx of CAD, with IN - S/P X3 stents. IN in 2018. Cont effient and lasix Code Status: Full code Diet: CC/renal-high protein DVT ppx: Heparin gtt for PE, window for surgery Dispo: Improved and stable. Admitted to medical inpatient. Debridement POD#8, #3 , and #2, sacral MRI concern for osteo. Cont IV abx, will need 6-8 weeks. Apprec surgery recommendations and assistance.
[2019-04-21] MEDS: fentaNYL Citrate/PF 2,000 MCG in Sodium Chloride 0.9% 60 ML IV PRN (10:41)
--- NOTE | 2019-04-21 11:18 | PRG ---
DATE OF SERVICE: 04/21/2019 Mr. Ha is sitting in bed, awake and alert. He is in no distress. We continue to follow and manage him with the Surgery team. He has required several transfusions and his wounds have been "oozing blood." We will discuss with Surgery whether or not we need to either temporarily withhold his heparin or place an IVC filter giving time for the wound to at least partially heal before reinstituting therapy for his pulmonary embolus. Job ID: [id number]
[2019-04-21] MEDS: Tamsulosin HCl 0.4 MG CAP PO SCH (11:22)
--- NOTE | 2019-04-21 12:47 | PRG ---
DATE OF SERVICE: 04/21/2019 SUBJECTIVE: The patient was seen today during rounds. He was lying in bed with no signs of acute distress. Wound VAC to sacrum was in place with dark output. The patient reported pain is well controlled. He was n.p.o. in preparation for assessment for possible OR today for continued debridement of sacral wound. He had no acute events overnight and requesting Busby removal. OBJECTIVE: VITAL SIGNS: Temperature 98.1, pulse 77, respirations 20, oxygen saturation 97% on room air, and blood pressure 165/89. GENERAL: Well-appearing, middle-aged male, sitting up in bed with no signs of acute distress. PULMONARY: Equal chest rise and fall. Clear breath sounds bilaterally. No signs of acute respiratory distress. CARDIAC: Regular rate and rhythm. No murmurs, gallops, rubs. GI: Abdomen is soft, nontender, nondistended. Colostomy putting out light brown stool and gas. There appears to be no sign of ostomy necrosis. EXTREMITIES: 2+ pulses in all extremities. Gross motor and sensation are intact. BACK: Wound VAC to sacrum is in place and working appropriately with dark output in VAC container. LABORATORY FINDINGS: White count 8.1, hemoglobin 8.4, hematocrit 26.1, and platelets 290. Sodium 137, potassium 3.2, chloride 101, carbon dioxide 27, BUN 24, creatinine 2.88, and glucose 167. DIAGNOSTIC FINDINGS: There are no new diagnostic findings to report. ASSESSMENT: 1. Postop day #2 after repeat excisional debridement of sacral gluteal necrotizing soft tissue wound. 2. Postoperative day #2 status post loop transverse colostomy. PLAN: Dr. Linares evaluated the patient when Wound Care took down his sacral wound VAC and replaced the VAC with an irrigating wound VAC. He did report that there was some area of necrosis superiorly. The plan will be to take the wound VAC down again with the wound care team on Wednesday for re-evaluation for possible additional surgical debridement at that time. This patient was discussed with Dr. Linares before this dictation. Job ID: [id number]
--- NOTE | 2019-04-21 15:42 | ULT ---
RIGHT LOWER EXTREMITY VENOUS ULTRASOUND WITH DOPPLER: HISTORY: Evaluate for right leg deep vein thrombus. COMPARISON: None. TECHNIQUE: Grayscale, color flow, Doppler imaging and spectral wave form analysis the right lower extremity veno us system was performed. FINDINGS: There is compressibility, presence of flow and augmentation in the common femoral vein, femoral vein and popliteal vein. There is flow in the greater saphenous vein, profunda femoral vein and posterior tibial vein. IMPRESSION: No evidence of thrombus in the right lower extremity venous system. Transcribed Date/Time: 04/21/2019 3:54 PM
--- NOTE | 2019-04-21 17:42 | CON ---
DATE OF CONSULTATION: 04/21/2019 REASON FOR CONSULTATION: Decubitus ulcer in the presacral region. HISTORY OF PRESENT ILLNESS: A 48-year-old who is an inmate at [facility] and has a history of type 2 diabetes mellitus, end-stage renal disease, receiving hemodialysis through a tunneled catheter in the right IJ position. Sometime in February, he developed fever in the unit and was brought to [facility], and at the time, he was given a diagnosis of possible cholecystitis and had a laparoscopic cholecystectomy. Postoperatively, somehow, he developed a respiratory distress, could not be extubated. It looks like the end-stage renal disease was occurred after doing this event, and in other words, he was not on dialysis before these complications related to the fever episode that took him to [facility]. As part of the complications that developed from this admission at [facility], he developed decubitus ulcers and bilateral heel ulcerations. He was diagnosed with pulmonary embolism, was given Eliquis, and then was sent back to the unit at [facility]. In the next few days, he developed hypotension, and a central line was placed. A CT angio demonstrated pulmonary emboli, which I think were already known emboli from [facility]. He was then transferred to [facility]. Initial findings included blood pressure 114/61, heart rate 92, temperature 98.8, O2 saturations were 100% on room air. The findings in the exam in the admit note are not particularly remarkable, specifically the skin is described as no lesions, which is not likely since he already had a decubitus ulcer, stage IV at that time. Initial white cell count is 9.7, hemoglobin 7.8, platelets 226, and creatinine was 6.07. CT showed right lower lobe pulmonary emboli. The actual radiologist interpretation demonstrated a filling defect in the distal right lower lobe segmental and subsegmental pulmonary arteries. He had an abdomen and pelvis CT done on admission, which demonstrated a small amount of fluid in the gallbladder fossa, 4.1 cm, without any evidence of enhancement. There was a low-density focus in this body of the spleen measuring 2.2 cm, and there were no enlarged lymph nodes noted. There was evidence of subcutaneous emphysema in the area inferior to the coccyx related to the decubitus ulceration, but no abscess was obvious in the area. There was nonspecific heterogeneity in the gluteal musculature with increased density in the adipose soft tissues in the gluteal region. There was a right foot common femoral vein central venous catheter. Two sets of blood cultures have been negative final report from admission, and the initial wound photos showed numerous small scabs in the extremities, unstageable areas of pressure damage in the right and left heels, more prominent in the right side and a quite wide area of necrotic eschar with unstageable ulceration. Subsequently found out to be a stage IV in the presacral region. The patient was operated by Dr. Montez for the ulceration, the first debridement, was able to remove pretty much all the necrotic tissue. The femoral catheter was eventually removed because of signs of infection at the exit site. Eventually had a colostomy placed for diversion in reference to the large decubitus ulceration. Currently, the patient is awake, feeling better after all these events described. Denies headaches. No visual symptoms, sore throat, odynophagia, or dysphagia. He coughs sometimes after drinking, but eats without problem. No chest pain. No back pain. No abdominal tenderness. He had urinary retention identified recently. The catheter was just removed this morning. He is able to move extremities. He does have limitations in the right foot, however. PAST MEDICAL HISTORY: Type 2 diabetes, hypertension, peripheral vascular disease, coronary artery disease with prior CO, recent admission to [facility] with presumed cholecystitis. We do not have details from that admission. He underwent a cholecystectomy, which was laparoscopic, and developed sepsis, and respiratory failure, required intubation, eventually recovered, and was transferred to the unit, but was left with a large stage IV decubitus ulcer in the presacral region, and this has led to this current admission. PAST SURGICAL HISTORY: Also includes appendectomy, right ankle surgery with hardware for management of fracture in the past and amputation of the right great toe. FAMILY HISTORY: Coronary artery disease, type 2 diabetes. SOCIAL HISTORY: Former smoker. He is a current incarcerated in [facility] and he has a history of IV drug use with methamphetamine. CURRENT MEDICATION LIST: 1. Tylenol. 2. Proventil. 3. DuoNeb. 4. Cathflo. 5. Norvasc. 6. Dulcolax. 7. Tums. 8. Coreg. 9. Ceftriaxone. 10. Gabapentin. PHYSICAL EXAMINATION: VITAL SIGNS: He is vital signs since admission have been remarkable for T-max of 99.2, it has been 99.4 more recently, blood pressure 130/70, pulse 78, respirations 20, O2 saturation 98%. SKIN: The skin examination has been described. He does have this negative pressure dressing over this wide area of sacral decubitus ulceration, stage IV with large amounts of muscle involvement, which have been debrided by Dr. Melida naylor. Has a colostomy placed in the midline more or less and actually dialysis catheter in the right subclavian tunnel to the IJ position. There is a left subclavian triple- lumen catheter. He does not have a peripheral IV access. Busby catheter has been removed. He has those areas of unstageable ulceration in the heel area, the more prominent one is on the right side. No lymphadenopathy. HEENT: Male pattern baldness. Ocular movements conjugate. Sclerae are white. Pupils are equal. Conjunctivae are somewhat pale. Nasal passages are patent. Oral cavity still quite a few teeth in place with expected decay and gum disease. NECK: Supple. No jugular vein distention. LUNGS: Symmetric air entry. CARDIAC: S1 and S2. Regular rate. No S3 or S4. No murmurs. ABDOMEN: Not distended. No ascites. No organomegaly. No bladder distention. EXTREMITIES: He is able to move extremities with limitations imposed by the restraints placed by [facility] staff, and he has limitation of range of motion of right ankle from the previous hardware. Cognitive function appears to be intact. LABORATORY DATA: [place] [address] to 8.1, hemoglobin 8.4, platelets 290. Sodium 136, creatinine started at 6.07 and down to 2.88 at this time. Alkaline phosphatase 74, albumin 2.7, globulin 4.1. We do not have urinalysis. Hepatitis serology, syphilis, and HIV serology, nonreactive. Vancomycin trough 13.1 microbiology with nonhemolytic Streptococcus and E coli, which has a broad susceptibility profile. Anaerobic cultures are still pending at this time. IMAGING STUDIES: There is an abdomen x-ray from 5 days ago which was normal. Abdomen and pelvis CT described ulcerated areas, and MRI of the pelvis with signal alteration involving distal sacrum and coccyx either reactive osteitis or early osteomyelitis in the muscle changes consistent with being infectious myositis. There is marked distention of the urinary bladder, which was then addressed. ASSESSMENT: 1. Type 2 diabetes. 2. Sepsis associated with previous cholecystectomy done at [facility], which required a stay at the ICU and intubation, protracted antimicrobial therapy administration and then transfer back to [facility] for management of this complication from [facility] admission with widespread area of debridement. 3. Stage 4 sacral pressure ulcer secondary to the above complications and hospital stay with evidence of osteo myelitis sacrum with E. coli (S) and Streptococcus sp. Discussion: The patient seems to have completed the surgical intervention, has had a diversion, and will now continue on Rocephin and Flagyl, the end date of therapy will be probably at the end of April approximately or the mid May depending on the results of followup MRI study to follow up the bone changes. The patient will continue to require offloading of the area which will be the extremely important to allow healing of the extensive area of tissue loss in the back. He would be a candidate for Plastic Surgery intervention with a myocutaneous flap. I think that would be the ideal intervention since he is not paraplegic and would be able to resume ambulatory status quite rapidly. The other approach would be just conservative management with negative pressure dressing, but that would take a prolonged time to heal. The patient will be at risk for infection of the lines and will need a tunneled catheter in the left side IJ position to allow for completion of therapy with a safer line access, such as a Morales catheter. Job ID: [id number] MTDD
--- NOTE | 2019-04-21 17:52 | PRG ---
DATE OF SERVICE: 04/21/2019 SUBJECTIVE: Patient was seen and examined at bedside and overnight events noted. Patient denies any shortness of breath or chest pain or palpitation. No history of nausea or vomiting or diarrhea or fever or chills or cramps. OBJECTIVE: GENERAL: This is a well built male, in no acute distress. VITAL SIGNS: Temperature 98.5. Heart rate 78. Respiratory rate . Blood pressure 137/75. HEENT: Atraumatic, normocephalic. Oral mucosa is moist NECK: Supple. CARDIOVASCULAR: S1, S2 heard. Rate and rhythm regular. RESPIRATORY: Clear to auscultation. GASTROINTESTINAL: Abdomen is soft. MUSCULOSKELETAL: No tenderness. No edema. DERMATOLOGIC: No skin rash. NEUROLOGIC: Alert and awake and oriented X3. No focal neurologic deficits. Moving all the extremities. PSYCHIATRIC: Mood and affect normal. LABORATORY DATA: Potassium 3.2, BUN is 24, and creatinine is 2.8. ASSESSMENT AND PLAN: 1. End-stage renal disease, continue dialysis Wednesday, , Wednesday. 2. Edema, controlled. 3. History of hypertension. 4. History of anemia. We will monitor labs and continue dialysis as tolerated Wednesday, , and Wednesday. Job ID: [id number]
[2019-04-21] MEDS: HumaLOG 300 UNITS/3 ML VIAL SC PRN ×2 (18:16→21:08)
[2019-04-21] MEDS: cefTRIAXone\\ROCEPHIN 2 GM in Sodium Chloride 0.9% 100 ML IVPB SCH (20:59)
[2019-04-21] MEDS: Gabapentin 300 MG CAP PO SCH (21:03)
[2019-04-22] MEDS: Acetaminophen 500 MG TAB PO SCH ×4 (00:20→17:28)
[2019-04-22 03:46] LABS: #Eosinphils 0.5 thou/uL (0.0-0.7); #Lymphocytes 1.5 thou/uL (1.20-3.40); #Monocytes 0.6 thou/uL (0.11-0.59); #Neutrophils 5.8 thou/uL (1.40-6.50); %Basophils 0.2 % (0.0-1.0); %Eosinophils 5.5 % (0.0-10.0); %Monocytes 7.2 % (0.0-10.0); %Neutrophils 69.1 % (42.0-75.0); Hemoglobin 8.7 g/dL (14.0-18.0); Mean Corpuscular HGB CONC 32.6 g/dL (32.0-36.0); Mean Corpuscular Hemoglobin 26.1 pg (27.0-31.0); Mean Corpuscular Volume 80.2 fL (78.0-98.0); Mean Platelet Volume 8.4 fL (7.4-10.4); Platelet Count 316 thou/uL (130-400); RBC Distribution Width 20.2 % (11.5-14.5); Red Blood Cell (RBC) Count 3.34 mill/uL (4.70-6.10); White Blood Cell (WBC) Count 8.4 thou/uL (4.8-10.8)
[2019-04-22 04:07] LABS: ALT (SGPT) 8 U/L (8-55); AST (SGOT) 10 U/L (5-34); Albumin 2.8 g/dL (3.5-5.0); Alkaline Phosphatase 92 U/L (40-110); Anion Gap 15 mmol/L (10-20); BUN (Urea Nitrogen) 38 mg/dL (8.9-20.6); Bilirubin, Total 0.3 mg/dL (0.2-1.2); Calc. Creatinine Clearance 41 mL/min (70-130); Calcium 10.5 mg/dL (7.8-10.44); Carbon Dioxide 25 mmol/L (22-29); Chloride 101 mmol/L (98-107); Estimated GFR-MDRD 19; Globulin 4.2 g/dL (2.4-3.5); Glucose 192 mg/dL (70-105); Potassium 3.2 mmol/L (3.5-5.1); Sodium 138 mmol/L (136-145)
[2019-04-22] MEDS: fentaNYL Citrate/PF 2,000 MCG in Sodium Chloride 0.9% 60 ML IV PRN ×2 (04:18→22:05)
--- NOTE | 2019-04-22 04:58 | PDOC.FM ---
- Subjective Subjective: Patient is doing well. Complains of irritation of his sacral wound, especially with movement. Is requesting trapeze to assist with bed transfers, nurse aware and will train today. - Objective MAR Reviewed: Yes Vital Signs & Weight: Vital Signs (12 hours) Temp Pulse Resp BP Pulse Ox 04/22/19 00:00 98.3 F 81 15 124/73 96 04/21/19 19:50 96 04/21/19 19:30 97.9 F 87 18 158/76 H 96 Weight Admit Weight 117.934 kg Weight 111.13 kg Most Recent Monitor Data Heart Rate from ECG 76 NIBP 125/69 Respiration from ECG 16 I&O: 04/20/19 04/21/19 04/22/19 06:59 06:59 06:59 Intake Total 480 2300 1080 Output Total 0 Balance 201 062 0102 Result Diagrams: 04/22/19 03:30 04/22/19 03:30 Phys Exam - Physical Examination Constitutional: NAD HEENT: PERRLA, moist MMs, sclera anicteric Neck: supple, full ROM Respiratory: no wheezing, no rales, no rhonchi, clear to auscultation bilateral Cardiovascular: RRR, no significant murmur, no rub Gastrointestinal: soft, non-tender, no distention, positive bowel sounds Musculoskeletal: no edema, pulses present Neurological: non-focal, moves all 4 limbs Psychiatric: normal affect, A&O x 3 Skin: no rash, normal turgor, cap refill <2 seconds Dx/Plan - Plan Plan: 48 y/o M h/o PE, ESRD on HD, CHF, DMII admitted to medical inpatient for further treatment and evaluation of PE, Hypotension, sx anemia, and stage 4 decubitus ulcer, found to have sacral osteo on MRI. #Sacral Decubitus Ulcer, stage 4, s/p multiple debridements POD#8, POD#3, and POD #2 - Dr. Allred, gen surg, consulted, debridement on 04/13, 04/19, and 04/20. Demonstrated necrotic tissue requiring wide excision. Wound vac in place - dark red drainage. Diverting colostomy in place. Apprec recs and assistance. Current plan is to reevaluate the wound on Wednesday morning for further surgical options. - Cont vanc (04/11) and Rocephin (04/17). S/p zosyn (04/11-04/17). Will need 6- 8wks of abx for osteo - MRI pelvis concern for osteitis vs early osteo - Wound Cx x2 E. Coli, susceptible to Rocephin. Also GPC and GPR. Will await final cx results and will cont current abx regime - Wound care consulted, hyperbaric treatments, apprec assistance - continue pain med regime with [employer] pump, well-controlled #Symptomatic anemia->combination of beta thalassemia, acute blood loss, and anemia of chronic disease 2/2 ESRD - s/p 7 unit pRBC; 04/11, 04/14, 04/15, 04/18, and 3u 04/19. 2 u plt;04/18, . 2u FFP; 04/20 x2 - Hb 8.4 this AM, will cont to monitor - Pt states he had colonoscopy and EGD in 2014 with colon polyps removed but otherwise negative per pt. FOBT negative - Hb electrophoresis - positive for beta thalassemia minor - started on epogen by nephro #Pulmonary Embolism - [facility] for cholecystectomy, pt intubated and sedated for extended period of time. - Developed PE, sacral decubitus ulceration over course of stay. - Home Eliquis 2.5 mg BID held - Th Heparin gtt with heparin window if return to OR warranted, held 4 hours pre -op and restarted 6 hours post-op - CTA: Right lower lobe Pulmonary Emboli #Hypotension, resolved - at presentation 2/2 nitro given, right fem line placed, no pressors required. BP stable currently, will monitor - Right fem line removed on 04/19. Left subclavian CL in place (04/19), c/d/i #Hypercalcemia, hypoalbumin, hyerphosphatemia -> likely hypercalcemia 2/2 infection - Corrected Ca 11.5 this morning. - Not consistent with ESRD secondary hyperparathyroidism, concern for malignant hypercalcemia vs infectious hypercalcemia - 1-25 vit D 4, SPEP and UPEP negative, Haptoglobin 360 likely acute phase reactant. Hb electrophoresis beta thal minor - PTHrP pending. 24hr calcium WNL - CT chest, abd, pelvis - no significant lymphadenopathy or masses noted other than vague density in spleen - on Renvela and vit d 50,000u q7d #Urinary Retention - Symptoms of urinary overflow, Consistently elevated post-void residuals - started on flomax daily, tapia place 04/19. Will collect 24hr urine for study and attempt to bladder train and remove tapia when possible #Chronic Constipation, s/p diverting colostomy - good bowel sounds, passing gas, ostomy clean, pink. Shahida-appearing stool. Dressing c/d/i. #HTN - initially held 2/2 hypotension, restarted coreg, imdur, norvasc. Will monitor. Consider restarting lisinopril if warranted. #Atypical Chest Pain, resolved - chronic pleuritic pain 2/2 PE, cont anticoagulation. Trops trended and stable 2/2 ESRD, no acute EKG changes at admission. # ESRD on HD - HD every T,TR,Sat. On HD since 2017 - Dr. Marina Lead Applications Developer consulted, will cont dialysis, appreciate recs. Monitoring lytes - dailysis today #DM II, insulin dependent - Hyperglycemia protocol, SSI, ACHS accuchecks. CC diet #CORNELIUS - CPAP QHS, CPAP HS #Hx of CAD, with NM - S/P X3 stents. NM in 2018. Cont effient and lasix Code Status: Full code Diet: CC/renal-high protein DVT ppx: Heparin gtt for PE, window for surgery Dispo: Improved and stable. Admitted to medical inpatient. Debridement POD#8, #3 , and #2, sacral MRI concern for osteo. Cont IV abx, will need 6-8 weeks. Apprec surgery recommendations and assistance. Addendum - Attending - Attending Attestation Date/Time: 04/22/19 4626 I personally evaluated the patient and discussed the management with Dr. Ortiz I agree with the History, Examination, Assessment and Plan documented above with any addition or exceptions noted below. Severly ill patient appears to be continually improved tolerating dialysis. Has more advanced wound vacuum placed with irrigation and to be considered for HBOT by wound care. He denies CP dyspnea and states he feels tremendously improved since admission. Appreciate ID and general surgery treatment and recommendations. Discussed his large soft tissue defect with patient.
[2019-04-22] MEDS: Heparin 25,000 units/D5W 500 ML IVPB SCH ×2 (05:15→18:42)
[2019-04-22] MEDS: HumaLOG 300 UNITS/3 ML VIAL SC PRN ×3 (05:17→21:14)
[2019-04-22] MEDS: Mometasone 100 MCG HFA INHALER INH SCH ×2 (06:52→18:03)
--- NOTE | 2019-04-22 08:13 | PRG ---
DATE OF SERVICE: 04/22/2019 SUBJECTIVE: Patient was seen and examined at bedside and overnight events noted. Patient denies any shortness of breath or chest pain or palpitation. No history of nausea or vomiting or diarrhea or fever or chills or cramps. OBJECTIVE: GENERAL: This is a well-built male in no apparent distress. VITAL SIGNS: Temperature 98.2. Heart rate 80. Respiratory rate 18. Blood pressure 116/86. HEENT: Atraumatic, normocephalic. Oral mucosa is moist NECK: Supple. CARDIOVASCULAR: S1, S2 heard. Rate and rhythm regular. RESPIRATORY: Clear to auscultation. GASTROINTESTINAL: Abdomen is soft. MUSCULOSKELETAL: No tenderness. No edema. DERMATOLOGIC: No skin rash. NEUROLOGIC: Alert and awake and oriented X3. No focal neurologic deficits. Moving all the extremities. PSYCHIATRIC: Mood and affect normal. LABORATORY DATA: Potassium 3.2, BUN is 38, and creatinine is 3.4. ASSESSMENT AND PLAN: 1. End-stage renal disease, currently on dialysis. 2. Hypokalemia. We will monitor. 3. Hypercalcemia. 4. . 5. Hypertension, stable. 6. Edema, we will remove fluid. 7. Continue dialysis as tolerated. Job ID: [id number]
[2019-04-22 08:21] LABS: Vancomycin, Trough 10.7 ug/mL
[2019-04-22] MEDS: EPOETIN ALFA-EPBX (ESRD) 10,000 UNIT/ML VIAL IVP SCH (09:20)
[2019-04-22] MEDS: Folic Acid/Vit B Comp W-C PO SCH (10:29)
[2019-04-22] MEDS: Famotidine 20 MG TAB PO SCH (10:29)
[2019-04-22] MEDS: Sevelamer Carbonate 800 MG TAB PO SCH ×3 (10:29→17:28)
[2019-04-22] MEDS: Metoclopramide HCl 10 MG TAB PO SCH ×4 (10:29→20:48)
[2019-04-22] MEDS: Polyethylene Glycol 3350 17 GM Packet PO SCH (10:30)
[2019-04-22] MEDS: Senokot S 8.6-50 MG TAB PO SCH ×2 (10:30→20:48)
[2019-04-22] MEDS ORDERED: Heparin 1,000 UNITS/ML VIAL ONE (11:11)
[2019-04-22] MEDS: Tamsulosin HCl 0.4 MG CAP PO SCH (12:04)
[2019-04-22] MEDS: Isosorbide Mononitrate (ER) 30 MG TAB PO SCH (12:06)
[2019-04-22] MEDS: Carvedilol 25 MG TAB PO SCH ×2 (12:06→20:48)
[2019-04-22] MEDS: Furosemide 40 MG TAB PO SCH (12:06)
[2019-04-22] MEDS: Amlodipine 10 MG TAB PO SCH (12:31)
[2019-04-22] MEDS: cefTRIAXone\\ROCEPHIN 2 GM in Sodium Chloride 0.9% 100 ML IVPB SCH (20:47)
[2019-04-22] MEDS: Gabapentin 300 MG CAP PO SCH (20:48)
[2019-04-23] MEDS: Heparin 25,000 units/D5W 500 ML IVPB SCH ×3 (03:20→21:12)
[2019-04-23] MEDS: HumaLOG 300 UNITS/3 ML VIAL SC PRN ×2 (05:53→16:23)
--- NOTE | 2019-04-23 05:55 | PDOC.FM ---
- Subjective Subjective: Doing well this morning. C/o bowel movements per rectum that are hard and dry. - Objective MAR Reviewed: Yes Vital Signs & Weight: Vital Signs (12 hours) Temp Pulse Resp BP Pulse Ox 04/23/19 03:38 98.9 F 77 18 144/85 H 96 04/23/19 00:00 98.2 F 74 20 147/73 H 98 04/22/19 20:54 98.4 F 81 20 167/78 H 97 04/22/19 20:45 97 Weight Admit Weight 117.934 kg Weight 111.13 kg Most Recent Monitor Data Heart Rate from ECG 76 NIBP 125/69 Respiration from ECG 16 I&O: 04/21/19 04/22/19 04/23/19 06:59 06:59 05:59 Intake Total 2300 2280 840 Output Total 2050 100 Balance 250 2180 840 Result Diagrams: 04/23/19 05:45 04/23/19 05:45 Phys Exam - Physical Examination Constitutional: NAD HEENT: PERRLA, moist MMs Neck: supple, full ROM Respiratory: no wheezing, no rales, no rhonchi, clear to auscultation bilateral Cardiovascular: RRR, no significant murmur, no rub Gastrointestinal: soft, non-tender, positive bowel sounds ostomy clean dry and intact Musculoskeletal: no edema, pulses present Neurological: non-focal, moves all 4 limbs Psychiatric: normal affect, A&O x 3 Skin: no rash, cap refill <2 seconds Dx/Plan - Plan Plan: 48 y/o M h/o PE, ESRD on HD, CHF, DMII admitted to medical inpatient for further treatment and evaluation of PE, Hypotension, sx anemia, and stage 4 decubitus ulcer, found to have sacral osteo on MRI. #Sacral Decubitus Ulcer, stage 4, s/p multiple debridements - Dr. Allred, gen surg, consulted, debridement on 04/13, 04/19, and 04/20. Demonstrated necrotic tissue requiring wide excision. Wound vac in place - dark red drainage. Diverting colostomy in place. Apprec recs and assistance. Current plan is to reevaluate the wound on Wednesday morning for further surgical options. - Cont Rocephin (04/17). S/p zosyn (04/11-04/17), vanc (04/11-04/20). Will need 6-8wks of abx for osteo - MRI pelvis concern for osteitis vs early osteo - Wound Cx x2 E. Coli, susceptible to Rocephin. Dr. Cornejo consulted and recommends Rocephin and Flagyl for likely 6-8 weeks after discharge. He also recommends IJ line before discharge. Appreciate recommendations. #Symptomatic anemia->combination of beta thalassemia, acute blood loss, and anemia of chronic disease 2/2 ESRD - s/p 7 unit pRBC; 04/11, 04/14, 04/15, 04/18, and 3u 04/19. 2 u plt;04/18, . 2u FFP; 04/20 x2 - Hb 9.1 this AM, will cont to monitor - Hb electrophoresis - positive for beta thalassemia minor - started on epogen by nephro #Pulmonary Embolism - [facility] for cholecystectomy, pt intubated and sedated for extended period of time. - Developed PE, sacral decubitus ulceration over course of stay. - Home Eliquis 2.5 mg BID held for renal impairment - Th Heparin gtt with heparin window if return to OR warranted, held 4 hours pre -op and restarted 6 hours post-op #Hypotension, resolved - at presentation 2/2 nitro given, right fem line placed, no pressors required. BP stable currently, will monitor - Right fem line removed on 04/19. Left subclavian CL in place (04/19), c/d/i #Hypercalcemia, hypoalbumin, hyerphosphatemia -> likely hypercalcemia 2/2 infection - Corrected Ca 11.5 this morning. - Not consistent with ESRD secondary hyperparathyroidism, concern for malignant hypercalcemia vs infectious hypercalcemia - 1-25 vit D 4, SPEP and UPEP negative, Haptoglobin 360 likely acute phase reactant. Hb electrophoresis beta thal minor - PTHrP pending. 24hr calcium WNL - CT chest, abd, pelvis - no significant lymphadenopathy or masses noted other than vague density in spleen - on Renvela and vit d 50,000u q7d #Urinary Retention - Symptoms of urinary overflow, Consistently elevated post-void residuals - started on flomax daily, tapia place 04/19. Will collect 24hr urine for study and attempt to bladder train and remove tapia when possible #Chronic Constipation, s/p diverting colostomy - good bowel sounds, passing gas, ostomy clean, pink. Shahida-appearing stool. Dressing c/d/i. #HTN - initially held 2/2 hypotension, restarted coreg, imdur, norvasc. Will monitor. Consider restarting lisinopril if warranted. #Atypical Chest Pain, resolved - chronic pleuritic pain 2/2 PE, cont anticoagulation. Trops trended and stable 2/2 ESRD, no acute EKG changes at admission. # ESRD on HD - HD every T,TR,Sat. On HD since 2017 - Email Specialist consulted, will cont dialysis, appreciate recs. Monitoring lytes #DM II, insulin dependent - Hyperglycemia protocol, SSI, ACHS accuchecks. CC diet #CORNELIUS - CPAP QHS, CPAP HS #Hx of CAD, with CO - S/P X3 stents. CO in 2018. Cont effient and lasix Code Status: Full code Diet: CC/renal-high protein DVT ppx: Heparin gtt for PE, window for surgery Dispo: Improved and stable. Admitted to medical inpatient. Debridement POD#8, #3 , and #2, sacral MRI concern for osteo. Cont IV abx, will need 6-8 weeks. Apprec surgery recommendations and assistance. Addendum - Attending - Attending Attestation Date/Time: 04/23/19 [id number] I personally evaluated the patient and discussed the management with Dr. Ortiz I agree with the History, Examination, Assessment and Plan documented above with any addition or exceptions noted below.Patient refused HBOT last week discussed benefit for wound healing again with patient. Wound check AM possible further debridement.
[2019-04-23 06:31] LABS: #Basophils 0.1 thou/uL (0.0-0.2); #Eosinphils 0.4 thou/uL (0.0-0.7); #Lymphocytes 1.8 thou/uL (1.20-3.40); #Monocytes 0.7 thou/uL (0.11-0.59); #Neutrophils 6.9 thou/uL (1.40-6.50); %Basophils 0.8 % (0.0-1.0); %Eosinophils 4.5 % (0.0-10.0); %Monocytes 6.7 % (0.0-10.0); Eosinophils 1 % (0-10); Hemoglobin 9.1 g/dL (14.0-18.0); Hypochromia SLIGHT = 6-15 cells (100X) (0-5/hpf); Lymphocytes 8 % (21-51); MDiff Complete? YES; Mean Corpuscular HGB CONC 32.5 g/dL (32.0-36.0); Mean Corpuscular Hemoglobin 26.4 pg (27.0-31.0); Mean Corpuscular Volume 81.4 fL (78.0-98.0); Mean Platelet Volume 8.3 fL (7.4-10.4); Monocytes 3 % (0-10); Neutrophil 88 % (42-75); Platelet Count 320 thou/uL (130-400); Platelet Morphology Comment Appears Increased; RBC Distribution Width 20.5 % (11.5-14.5); Red Blood Cell (RBC) Count 3.44 mill/uL (4.70-6.10); White Blood Cell (WBC) Count 9.8 thou/uL (4.8-10.8)
[2019-04-23 06:34] LABS: ALT (SGPT) 9 U/L (8-55); AST (SGOT) 11 U/L (5-34); Albumin 2.8 g/dL (3.5-5.0); Alkaline Phosphatase 93 U/L (40-110); Anion Gap 18 mmol/L (10-20); BUN (Urea Nitrogen) 29 mg/dL (8.9-20.6); Bilirubin, Total 0.3 mg/dL (0.2-1.2); Calc. Creatinine Clearance 44 mL/min (70-130); Carbon Dioxide 22 mmol/L (22-29); Chloride 99 mmol/L (98-107); Estimated GFR-MDRD 21; Globulin 4.4 g/dL (2.4-3.5); Glucose 183 mg/dL (70-105); Potassium 3.5 mmol/L (3.5-5.1); Protein, Total 7.2 g/dL (6.0-8.3); Sodium 135 mmol/L (136-145)
[2019-04-23] MEDS: Mometasone 100 MCG HFA INHALER INH SCH ×2 (07:03→18:56)
[2019-04-23] MEDS: Polyethylene Glycol 3350 17 GM Packet PO SCH (08:03)
[2019-04-23] MEDS: Famotidine 20 MG TAB PO SCH (08:04)
[2019-04-23] MEDS: Carvedilol 25 MG TAB PO SCH ×2 (08:04→20:55)
[2019-04-23] MEDS: Furosemide 40 MG TAB PO SCH (08:04)
[2019-04-23] MEDS: Amlodipine 10 MG TAB PO SCH (08:04)
[2019-04-23] MEDS: Isosorbide Mononitrate (ER) 30 MG TAB PO SCH (08:04)
[2019-04-23] MEDS: Folic Acid/Vit B Comp W-C PO SCH (08:04)
[2019-04-23] MEDS: Sevelamer Carbonate 800 MG TAB PO SCH ×3 (08:04→16:18)
[2019-04-23] MEDS: Metoclopramide HCl 10 MG TAB PO SCH ×4 (08:04→20:55)
--- NOTE | 2019-04-23 08:52 | PRG ---
DATE OF SERVICE: 04/23/2019 SUBJECTIVE: Patient was seen and examined at bedside and overnight events noted. Patient denies any shortness of breath or chest pain or palpitation. No history of nausea or vomiting or diarrhea or fever or chills or cramps. OBJECTIVE: GENERAL: This is a well-built male, in no apparent distress. VITAL SIGNS: Temperature 97.7. Heart rate 87. Respiratory rate 19. Blood pressure 122/74. HEENT: Atraumatic, normocephalic. Oral mucosa is moist NECK: Supple. CARDIOVASCULAR: S1, S2 heard. Rate and rhythm regular. RESPIRATORY: Clear to auscultation. GASTROINTESTINAL: Abdomen is soft. MUSCULOSKELETAL: No tenderness. No edema. DERMATOLOGIC: No skin rash. NEUROLOGIC: Alert and awake and oriented X3. No focal neurologic deficits. Moving all the extremities. PSYCHIATRIC: Mood and affect normal. LABORATORY DATA: Potassium 3.5, BUN is 29, and creatinine is 3.2. ASSESSMENT AND PLAN: 1. End-stage renal disease. Continue dialysis on Wednesday, , Wednesday. 2. Hypokalemia, stable. 3. Hypercalcemia. 4. Hypertension. 5. Edema, we will remove fluid. 6. Anemia of chronic disease. 7. We will continue on dialysis as tolerated. Job ID: [id number]
[2019-04-23] MEDS: Senokot S 8.6-50 MG TAB PO SCH ×2 (09:44→20:55)
--- NOTE | 2019-04-23 10:41 | PRG ---
DATE OF SERVICE: 04/23/2019 SUBJECTIVE: This is a 48-year-old male whom we are following for a decubitus ulcer, sepsis of unknown etiology. The patient recently had a wound VAC changed for irrigation of wound VAC. He has remained afebrile, stable, tolerating a diet. He has a colostomy that we are following, with no complications. Wound Care is bringing a new wafer and colostomy supplies today. Patient's plan is for re-evaluation tomorrow to see if he has to go back to the OR. He has grown E coli that is sensitive to ceftriaxone. He has been off vancomycin. OBJECTIVE: VITAL SIGNS: Temperature is 97.3, blood pressure 122/74, heart rate is 88, breathing 20 times per minute, saturating 99% on room air. GENERAL: This is a 48-year-old male, sitting up in bed. Sacral wound has a wound VAC in place. Drainage is appreciated. No erythema. He does have some tenderness, but no streaking erythema. The dressings are intact. ABDOMEN: His colostomy intact. Soft abdomen. He is nontoxic. LABORATORY DATA: White blood cell count is 9.8, platelets are 320, hemoglobin and hematocrit 9.1 and 28.0 respectively. Chemistry: Sodium is 135, potassium is 3.5, chloride is 99, BUN is 29, creatinine is 3.22, glucose is 183. Tissue culture shows E coli that is sensitive to ceftriaxone. ASSESSMENT: 1. Postoperative day #4 status post repeat debridement of sacral gluteal necrotizing soft tissue wound. 2. Postoperative day #4, status post loop transverse colostomy. PLAN: 1. Continue supportive care. 2. Continue ceftriaxone. 3. Continue wound VAC. 4. We will take down wound VAC tomorrow with Wound Care and evaluate with Dr. Michelle to evaluate for need for further operative repair. It was reported necrotic tissue on the superior surface of the wound. Currently, he has no leukocytosis, is afebrile, is clinically improving and will continue antibiotics on the remainder per the primary team. We will continue to follow along. Job ID: [id number]
[2019-04-23] MEDS: Lisinopril 2.5 MG TAB PO SCH (11:39)
[2019-04-23] MEDS: Tamsulosin HCl 0.4 MG CAP PO SCH (11:39)
--- NOTE | 2019-04-23 15:26 | PRG ---
DATE OF SERVICE: 04/23/2019 SUBJECTIVE: Feeling well. Denies any headaches. No shortness of breath or chest pain. No abdominal pain. A little bit of pain in the sacral wound area. OBJECTIVE: VITAL SIGNS: Essentially normal. GENERAL: Awake, alert, and oriented, no distress. LUNGS: Clear to auscultation and percussion. HEART: S1 and S2, regular rate. ABDOMEN: Soft, not tender. EXTREMITIES: Sacral area with negative pressure dressing. Able to move extremities. LABORATORY DATA: White cell count 9.8, hemoglobin 9.1, platelets 320 with 88% neutrophils. Sodium 135, creatinine 3.22. Liver profile normal. Albumin 2.8. Microbiology with E faecalis, E coli as noted previously. CURRENT MEDICATIONS: Include 1. Metronidazole. 2. Ceftriaxone. ASSESSMENT AND DISCUSSION: Type 2 diabetes and post cholecystectomy and multiorgan dysfunction at [facility], which led to this stage IV decubitus ulceration, renal insufficiency requiring hemodialysis, and now, the patient is readmitted for debridement of stage IV sacral ulcer. He does have enterococcus now identified in the area. We will have to adjust antimicrobial therapy accordingly. Our plan is to switch him to Zosyn alone, adjust it for renal function. He still needs Morales catheter placed for antimicrobial therapy administration. We will probably use meropenem, which will allow once daily administration, which would be a much simpler schedule. Invanz can be given after each dialysis, so that is an option that would forego the need for placement of a Morales catheter since it could be given at the end of each dialytic procedure, so that is an option to be considered. Job ID: [id number]
[2019-04-23] MEDS: fentaNYL Citrate/PF 2,000 MCG in Sodium Chloride 0.9% 60 ML IV PRN (16:03)
--- NOTE | 2019-04-23 17:18 | CON ---
DATE OF CONSULTATION: 04/21/2019 HISTORY OF PRESENT ILLNESS: Mr. Juancho Ha is a 48-year-old gentleman, referred for evaluation for hyperbaric oxygen therapy. The patient underwent intraoperative debridement of necrotizing sacral decubitus wound on 04/19/[address] Montez. At this time, the patient also underwent a loop transverse colostomy. Previously, the patient underwent intraoperative debridement of the sacral decubitus ulcer on 04/12/2019 and on 04/18/2019, also by Dr. Montez. The patient's medical history is significant for diabetes mellitus. PAST MEDICAL HISTORY: 1. End-stage renal disease. 2. Hypertension. 3. Obstructive sleep apnea. 4. Diabetes mellitus. 5. Peripheral vascular disease. 6. Coronary artery disease. PAST SURGICAL HISTORY: 1. Cholecystectomy. 2. Appendectomy. 3. Right ankle surgery with hardware. 4. Right great toe amputation. 5. Intraoperative debridement of sacral decubitus ulcer on 04/12/2019. 6. Intraoperative debridement of sacral decubitus ulcer on 04/18/2019. 7. Intraoperative debridement of necrotizing sacral wound on 04/19/2019 with loop transverse colostomy. MEDICATIONS ON ADMISSION: 1. Albuterol. 2. Amlodipine. 3. Eliquis. 4. Coreg. 5. Colace. 6. Flovent. 7. Nephro-Douglas. 8. Lasix. 9. Gabapentin. 10. Insulin. 11. Ipratropium. 12. Isosorbide mononitrate. 13. Lactulose. 14. Lisinopril. 15. Nitrostat. 16. Hemorrhoidal cream. 17. Effient. 18. Renvela. 19. Simethicone. 20. Benadryl. ALLERGIES: SHELLFISH. SOCIAL HISTORY: Negative for tobacco use for the past 10 years. The patient states that previously he smoked 1 pack of cigarettes per day for approximately 15 years. The patient denies any history of EtOH use. FAMILY HISTORY: Significant for diabetes mellitus. The patient states that his mother and sister were both diagnosed with diabetes mellitus. Family history is also significant for coronary artery disease. The patient states that his mother and father were both diagnosed with coronary artery disease. PHYSICAL EXAMINATION: VITAL SIGNS: Temperature 98.1, pulse 77, respirations 20, and blood pressure 165/89. GENERAL: A 48-year-old gentleman lying on hospital bed, in no acute distress. HEENT: Normocephalic and atraumatic. NECK: No nuchal rigidity. CHEST: Clear to auscultation. CV: Regular rate and rhythm. ABDOMEN: Soft. EXTREMITIES: No clubbing or cyanosis. A wound VAC is in place over the sacral wound. ASSESSMENT AND PLAN: A 48-year-old gentleman referred for evaluation for hyperbaric oxygen therapy following intraoperative debridement of a necrotizing sacral wound on 04/19/2019. At this time, the patient also underwent loop transverse colostomy. Previously, the patient underwent intraoperative debridement of the sacral decubitus ulcer on 04/12/2019 and again on 04/18/2019. The patient's medical history is significant for diabetes mellitus. The patient denies any history of congestive heart failure, seizures, crushing chest trauma, pneumothorax, blood disorders including hereditary spherocytosis, recent retinal surgery, or the administration of any chemotherapeutic agents contraindicating hyperbaric oxygen therapy. The patient understands the risks and benefits of hyperbaric oxygen therapy. He wishes to proceed with hyperbaric oxygen therapy, but declines the initiation of hyperbaric oxygen therapy until his Busby catheter has been discontinued. Arrangements will be made for the initiation of hyperbaric oxygen therapy on 04/24/2019 if the patient is amenable. I have explained to the patient that each session will be 90 minutes in duration and that the length of therapy will depend upon his response to hyperbaric oxygen in conjunction with serial examinations of his wound. Job ID: [id number]
[2019-04-23] MEDS: Meropenem 500 MG in Sodium Chloride 0.9% 100 ML IVPB SCH (17:39)
[2019-04-23] MEDS: Gabapentin 300 MG CAP PO SCH (20:55)
[2019-04-23] MEDS ORDERED: metroNIDAZOLE 500 MG in Premix Bag 1 BAG IVPB SCH (21:00)
[2019-04-24 04:52] LABS: #Basophils 0.1 thou/uL (0.0-0.2); #Eosinphils 0.5 thou/uL (0.0-0.7); #Lymphocytes 1.9 thou/uL (1.20-3.40); #Monocytes 0.7 thou/uL (0.11-0.59); #Neutrophils 6.5 thou/uL (1.40-6.50); %Basophils 0.6 % (0.0-1.0); %Eosinophils 5.3 % (0.0-10.0); %Lymphocytes 20.1 % (21.0-51.0); Hemoglobin 9.1 g/dL (14.0-18.0); Mean Corpuscular HGB CONC 31.4 g/dL (32.0-36.0); Mean Corpuscular Hemoglobin 24.9 pg (27.0-31.0); Mean Corpuscular Volume 79.4 fL (78.0-98.0); Mean Platelet Volume 8.4 fL (7.4-10.4); Platelet Count 378 thou/uL (130-400); RBC Distribution Width 20.6 % (11.5-14.5); Red Blood Cell (RBC) Count 3.65 mill/uL (4.70-6.10); White Blood Cell (WBC) Count 9.6 thou/uL (4.8-10.8)
[2019-04-24 05:09] LABS: ALT (SGPT) 11 U/L (8-55); AST (SGOT) 18 U/L (5-34); Alkaline Phosphatase 99 U/L (40-110); Anion Gap 17 mmol/L (10-20); BUN (Urea Nitrogen) 37 mg/dL (8.9-20.6); Bilirubin, Total 0.3 mg/dL (0.2-1.2); Calc. Creatinine Clearance 36 mL/min (70-130); Carbon Dioxide 22 mmol/L (22-29); Chloride 98 mmol/L (98-107); Estimated GFR-MDRD 17; Globulin 4.4 g/dL (2.4-3.5); Glucose 169 mg/dL (70-105); Potassium 3.6 mmol/L (3.5-5.1); Protein, Total 7.4 g/dL (6.0-8.3); Sodium 133 mmol/L (136-145)
--- NOTE | 2019-04-24 05:54 | PDOC.FM ---
- Subjective Subjective: Patient had a tough time getting comfortable overnight, was sleeping on his side when I walked in this morning. Reports he is otherwise doing well. Discussed that we are working with ID to establish an abx regimen for patient, he is agreeable to the plan of care at this time. - Objective Vital Signs & Weight: Vital Signs (12 hours) Temp Pulse Resp BP Pulse Ox 04/24/19 04:22 98.7 F 85 18 118/74 100 04/24/19 00:22 97.9 F 88 16 172/90 H 96 04/23/19 20:00 97 04/23/19 19:32 98.2 F 99 18 115/67 97 04/23/19 18:56 88 12 97 Weight Admit Weight 117.934 kg Weight 111.13 kg Most Recent Monitor Data Heart Rate from ECG 76 NIBP 125/69 Respiration from ECG 16 I&O: 04/22/19 04/23/19 04/24/19 07:59 06:59 06:59 Intake Total 1320 Output Total Balance 1320 Result Diagrams: 04/24/19 04:37 04/24/19 04:37 Phys Exam - Physical Examination Constitutional: NAD HEENT: moist MMs, sclera anicteric Neck: supple, full ROM Respiratory: no wheezing, clear to auscultation bilateral Cardiovascular: RRR, no significant murmur Gastrointestinal: soft, non-tender Musculoskeletal: no edema, pulses present Neurological: normal sensation, moves all 4 limbs Psychiatric: normal affect, A&O x 3 Deviation from normal: wound vac in place, clean, dry, intact Dx/Plan (1) CAD (coronary artery disease) Code(s): I25.10 - ATHSCL HEART DISEASE OF [place] CORONARY ARTERY W/O ANG PCTRS Status: Chronic (2) Diabetes mellitus Code(s): E11.9 - TYPE 2 DIABETES MELLITUS WITHOUT COMPLICATIONS Status: Chronic (3) ESRD (end stage renal disease) on dialysis Code(s): N18.6 - END STAGE RENAL DISEASE; Z99.2 - DEPENDENCE ON RENAL DIALYSIS Status: Acute (4) Hypotension Status: Acute (5) CORNELIUS (obstructive sleep apnea) Code(s): G47.33 - OBSTRUCTIVE SLEEP APNEA (ADULT) (PEDIATRIC) Status: Chronic (6) Pulmonary embolism Code(s): I26.99 - OTHER PULMONARY EMBOLISM WITHOUT ACUTE COR PULMONALE Status : Acute (7) Sacral osteomyelitis Code(s): M46.28 - OSTEOMYELITIS OF [place], SACRAL AND SACROCOCCYGEAL REGION Status: Acute (8) Symptomatic anemia Code(s): D64.9 - ANEMIA, UNSPECIFIED Status: Acute - Plan Plan: 48 y/o M h/o PE, ESRD on HD, CHF, DMII admitted to medical inpatient for further treatment and evaluation of PE, Hypotension, sx anemia, and stage 4 decubitus ulcer, found to have sacral osteo on MRI. #Sacral Decubitus Ulcer, stage 4, s/p multiple debridements - Dr. Allred, gen surg, consulted, debridement on 04/13, 04/19, and 04/20, appreciate further recs. Necrotic tissue requiring wide excision. Wound vac in place - dark red drainage. Diverting colostomy in place. Reevaluate the wound today for further surgical options. - MRI pelvis concern for osteitis vs early osteo - Wound Cx x2 E. Coli, susceptible to Rocephin. Dr. Cornejo consulted and recommends meropenem 500mg QD with administration after HD on dialysis days and end date June 01. He also rec weekly cbc, crp. Appreciate recommendations. - Meropenem started 04/23, continue. Rocephin (04/17-04/22). zosyn (04/11-04/17), vanc (04/11-04/20). Will need 6-8wks of abx for osteo -Possible hyperbaric oxygen therapy to start today per Dr. Lau #Symptomatic anemia->combination of beta thalassemia, acute blood loss, and anemia of chronic disease 2/2 ESRD - s/p 7 unit pRBC; 04/11, 04/14, 04/15, 04/18, and 3u 04/19. 2 u plt;04/18, . 2u FFP; 04/20 x2 - Hb 9.1 this AM, stable from yesterday, will continue to monitor - Hb electrophoresis - positive for beta thalassemia minor - started on epogen by nephro #Pulmonary Embolism - [facility] for cholecystectomy, pt intubated and sedated for extended period of time. - Developed PE, sacral decubitus ulceration over course of stay - Home Eliquis 2.5 mg BID held for renal impairment - Possible surgery today: Heparin gtt with heparin window if return to OR warranted, held 4 hours pre-op and restarted 6 hours post-op #Hypotension, resolved - at presentation 2/2 nitro given, right fem line placed, no pressors required. BP stable currently, will monitor - Right fem line removed on 04/19. Left subclavian CL in place (04/19), c/d/i #Hypercalcemia, hypoalbumin, hyerphosphatemia -> likely hypercalcemia 2/2 infection - Corrected Ca 10.8 this morning. - Not consistent with ESRD secondary hyperparathyroidism, concern for malignant hypercalcemia vs infectious hypercalcemia - 1-25 vit D 4, SPEP and UPEP negative, Haptoglobin 360 likely acute phase reactant. Hb electrophoresis beta thal minor - PTHrP wnl. 24hr calcium WNL - CT chest, abd, pelvis - no significant lymphadenopathy or masses noted other than vague density in spleen - on Renvela and vit d 50,000u q7d #Urinary Retention - Symptoms of urinary overflow, Consistently elevated post-void residuals - on flomax daily, tapia placed 04/19. Will collect 24hr urine for study, attempt to bladder train, and remove tapia when possible #Chronic Constipation, s/p diverting colostomy - good bowel sounds, passing gas, ostomy clean, pink. Shahida-appearing stool. Dressing c/d/i. #HTN - initially held 2/2 hypotension, restarted coreg, imdur, norvasc. Will monitor. - Consider restarting lisinopril if warranted. #Atypical Chest Pain, resolved - chronic pleuritic pain 2/2 PE, cont anticoagulation. Trops trended and stable 2/2 ESRD, no acute EKG changes at admission. # ESRD on HD - HD every T,TR,Sat. On HD since 2017 - Registration Representative consulted, will cont dialysis, appreciate recs. Monitoring lytes #DM II, insulin dependent - Hyperglycemia protocol, SSI, ACHS accuchecks. CC diet #CORNELIUS - CPAP QHS, CPAP HS #Hx of CAD, with [place] - S/P X3 stents. [place] in 2018. Cont effient and lasix Code Status: Full code Diet: CC/renal-high protein DVT ppx: Heparin gtt for PE, window for surgery Dispo: Improved and stable. Admitted to medical inpatient. Debridement x3, sacral MRI concern for osteo, possible re-debridement today. Cont IV abx, will need 6-8 weeks. Apprec surgery recommendations and assistance.
[2019-04-24] MEDS: Heparin 25,000 units/D5W 500 ML IVPB SCH (06:18)
[2019-04-24] MEDS: Mometasone 100 MCG HFA INHALER INH SCH ×2 (06:47→18:24)
[2019-04-24] MEDS: Sevelamer Carbonate 800 MG TAB PO SCH ×3 (08:53→19:03)
[2019-04-24] MEDS: Polyethylene Glycol 3350 17 GM Packet PO SCH ×2 (08:54→19:04)
[2019-04-24] MEDS: Folic Acid/Vit B Comp W-C PO SCH (08:55)
[2019-04-24] MEDS: Carvedilol 25 MG TAB PO SCH ×2 (08:55→20:00)
[2019-04-24] MEDS: Amlodipine 10 MG TAB PO SCH (08:55)
[2019-04-24] MEDS: Metoclopramide HCl 10 MG TAB PO SCH ×4 (08:55→22:30)
[2019-04-24] MEDS: Famotidine 20 MG TAB PO SCH (08:56)
[2019-04-24] MEDS: Isosorbide Mononitrate (ER) 30 MG TAB PO SCH (08:56)
[2019-04-24] MEDS: Furosemide 40 MG TAB PO SCH (08:56)
[2019-04-24] MEDS: Lisinopril 2.5 MG TAB PO SCH (08:56)
[2019-04-24] MEDS: fentaNYL Citrate/PF 2,000 MCG in Sodium Chloride 0.9% 60 ML IV PRN (10:10)
--- NOTE | 2019-04-24 11:58 | PRG ---
DATE OF SERVICE: 04/24/2019 SUBJECTIVE: Patient was seen and examined at bedside and overnight events noted. Patient denies any shortness of breath or chest pain or palpitation. No history of nausea or vomiting or diarrhea or fever or chills or cramps. OBJECTIVE: GENERAL: This is a well-built male, in no acute distress. VITAL SIGNS: Temperature 98.2. Heart rate . Respiratory rate 14. Blood pressure 133/71. HEENT: Atraumatic, normocephalic. Oral mucosa is moist NECK: Supple. CARDIOVASCULAR: S1, S2 heard. Rate and rhythm regular. RESPIRATORY: Clear to auscultation. GASTROINTESTINAL: Abdomen is soft. MUSCULOSKELETAL: No tenderness. No edema. DERMATOLOGIC: No skin rash. NEUROLOGIC: Alert and awake and oriented X3. No focal neurologic deficits. Moving all the extremities. PSYCHIATRIC: Mood and affect normal. LABORATORY DATA: Potassium 3.6, BUN is 37, creatinine is 3.9. ASSESSMENT AND PLAN: 1. End-stage renal disease. Continue dialysis as tolerated. 2. Edema, controlled. 3. Hypertension, stable. We will continue dialysis as tolerated. Job ID: [id number]
--- NOTE | 2019-04-24 12:23 | PRG ---
DATE OF SERVICE: 04/24/2019 SUBJECTIVE: The patient was seen on morning rounds. Patient was seen by Dr. Michelle. SUBJECTIVE: A 48-year-old male with large decubitus, status post colostomy. Colostomy continues to work. Pain is acceptable. He had an irrigating wound VAC placed around 72 hours ago. We have contacted Wound Care and evaluated the wound with wound VAC out. He still does have some necrosis at the top of the wound and some foul odor. Patient is now on meropenem per the primary team for his gram-negative tissue culture. Blood cultures have been negative that were taken on the of last month. The patient is hemodynamically stable. He is afebrile. No leukocytosis and tolerating diet well. PHYSICAL EXAMINATION: VITAL SIGNS: Today, temperature is 98.2, blood pressure is 133/71, heart rate is 92, breathing 14 times a minute, saturating 92% on room air. GENERAL: A 48-year-old chronically ill male, incarcerated in bed, in no acute distress and nontoxic appearing. HEENT: Normocephalic, atraumatic. Trachea is midline. RESPIRATORY: Equal rise and fall, bilateral breath sounds, clear to auscultation upper and lower lobe bilaterally. CARDIOVASCULAR: Regular rate. ABDOMEN: Colostomy noted. Soft abdomen. No tenderness. SKIN: Sacral wound is noted. Does have some viable and bleeding tissue noted in the posterior side of the wound. The superior part of the wound does have some eschar and some necrosis appreciated. Slight foul odor is appreciated. There is no streaking erythema. No lorenzo purulence is noted. MUSCULOSKELETAL: Otherwise moves his extremities well. NEUROLOGIC: Alert and oriented to person, place, time and event. PSYCHIATRIC: Normal mood and affect. LABORATORY DATA: From today, white blood cell count 9.6, platelets 376, hemoglobin and hematocrit 9.1 and 29.0 respectively. Chemistry: Sodium is 133, potassium 3.6, chloride is 98, CO2 is 22, creatinine is 3.9, BUN of 37, glucose 169. AST and ALT 18 and 11 respectively, total bilirubin 0.3, alkaline phosphatase 99. Micro, gram-negative rods growing in the tissue from 04/19/2019, sensitive to meropenem. ASSESSMENT: 1. Postoperative day #5 status post repeat debridement of sacral gluteal necrotizing soft tissue. 2. Postoperative day #5 status post loop transverse colostomy. PLAN: 1. We will suspend heparin and discuss with the nurse. 2. Will need operative repair. If he is able to be on the schedule today, we will proceed to the OR according to Dr. Michelle's and the OR schedule. If not, we will need tomorrow. We can resume the heparin until midnight and keep him n.p.o. after midnight. He is currently n.p.o. 3. Continue pain medicine. 4. Continue all other supportive care. 5. Agree with continuing antibiotics. 6. We will continue to follow along the remainder with the primary team. I appreciate the opportunity to work with Delano Leland. This patient was seen with Dr. Michelle. Job ID: [id number]
[2019-04-24] MEDS: Senokot S 8.6-50 MG TAB PO SCH ×2 (13:57→22:30)
--- NOTE | 2019-04-24 15:16 | PRG ---
DATE OF SERVICE: 04/24/2019 Mr. Ha is to be taken for some more surgical debridement later today. He is in much better spirits than earlier this week. We will continue to follow with the numerous services taking care of Mr. Ha. Job ID: [id number]
[2019-04-24] MEDS ORDERED: PROPOFOL 200 MG/20 ML VIAL ONE (15:20)
[2019-04-24] MEDS ORDERED: Ondansetron PF 4 MG/2 ML Vial ONE (15:20)
[2019-04-24] MEDS ORDERED: PHENYLEPHRINE-NS 100 MCG/ML 10 ML SYRINGE ONE (15:20)
[2019-04-24] MEDS ORDERED: Lidocaine 1% PF 5 ML VIAL ONE (15:20)
[2019-04-24] MEDS ORDERED: Succinylcholine Chloride 20 MG/ML 10 ml SYRINGE FS ONE (15:20)
[2019-04-24] MEDS ORDERED: Fentanyl 100 MCG/2 ML VIAL ONE ×3 (15:38→17:49)
[2019-04-24] MEDS ORDERED: Famotidine/PF 20 mg/2ml Vial ONE (15:47)
[2019-04-24] MEDS: Meropenem 500 MG in Sodium Chloride 0.9% 100 ML IVPB SCH (15:57)
[2019-04-24] MEDS ORDERED: Sodium Chloride 0.9% 0 ML ONE (16:00)
--- NOTE | 2019-04-24 17:31 | OP ---
DATE OF PROCEDURE: 04/24/2019 PREOPERATIVE DIAGNOSES: 1. Sepsis. 2. Decubitus wound with infected and necrotic skin, subcutaneous fat, muscle, connective tissue, and bone. POSTOPERATIVE DIAGNOSES: 1. Sepsis. 2. Decubitus wound with infected and necrotic skin, subcutaneous fat, muscle, connective tissue, and bone. PROCEDURE PERFORMED: Extensive debridement of necrotizing wound to perineum and sacral decubitus area. ANESTHESIA: General. ESTIMATED BLOOD LOSS: Minimal. COMPLICATIONS: None. FINDINGS: There is extensive necrotic muscle in the buttock area. This is debrided along with skin, subcutaneous fat, bone, as well as the muscle. DESCRIPTION OF PROCEDURE: The patient was taken to the operating room and laid supine on the operating room table. After general anesthetic was obtained, placed in right lateral decubitus position. Perineum was prepped and draped in a sterile fashion. Extensive debridement was performed including skin, subcutaneous, bone, and muscle. Wound VAC was placed. The patient was sent to Recovery in stable condition. Job ID: [id number]
--- NOTE | 2019-04-24 17:39 | RAD ---
EXAM: Single view of the chest HISTORY: Central line placement COMPARISON: 04/10/2019 FINDINGS: Single view of the chest shows a normal sized cardiomediastinal silhouette. The hemodialys is catheter is unchanged in position. A left IJ central venous catheter seen with its tip in the superior vena cava. No pneumothorax is seen. There is no evidence of consolidation, mass, or pleural effusion. The bones are unremarkable. IMPRESSION: Status post central line placement without evidence of complication.
--- NOTE | 2019-04-24 17:39 | OP ---
DATE OF PROCEDURE: 04/24/2019 PREOPERATIVE DIAGNOSES: Sepsis, necrotizing infection, sacral decubitus wound. POSTOPERATIVE DIAGNOSES: Sepsis, necrotizing infection, sacral decubitus wound. PROCEDURES PERFORMED: Central line (non-tunneled triple-lumen catheter), left internal jugular vein. ANESTHESIA: Local. ESTIMATED BLOOD LOSS: Minimal. COMPLICATIONS: None. TECHNIQUE: The patient was taken to the operating room and laid supine on the operating room table. The patient was already under general anesthetic. His left neck was prepped and draped in a sterile fashion. Using ultrasound guidance, the left IJ was cannulated using a Seldinger needle. Wire was passed under no tension. Small rebeka was made at the wire entrance site. The dilator was used to dilate the internal jugular vein under no tension. Triple-lumen catheter was threaded to 16 cm, sutured to the neck using close silk and connector. All ports flushed and kimmie blood without difficulty, each was flushed with a saline solution. The patient was sent to Recovery in stable condition. All instrument counts, needle counts, and lap counts were correct. Job ID: [id number]
[2019-04-24] MEDS ORDERED: Ondansetron HCl/PF 4 MG/2 ML Vial IVP PRN (17:53)
[2019-04-24 18:43] LABS: Hemoglobin 8.8 g/dL (14.0-18.0); Platelet Count 347 thou/uL (130-400)
[2019-04-24] MEDS: Tamsulosin HCl 0.4 MG CAP PO SCH (19:03)
[2019-04-24] MEDS: HumaLOG 300 UNITS/3 ML VIAL SC PRN (19:06)
[2019-04-24] MEDS: Gabapentin 300 MG CAP PO SCH (20:00)
[2019-04-24] MEDS: Acetaminophen 500 MG TAB PO PRN (20:00)
[2019-04-24] MEDS: Heparin 10,000 UNITS/ 10 ML VIAL SLOW IVP SCH (23:13)
--- NOTE | 2019-04-25 05:39 | PDOC.FM ---
- Subjective Subjective: Patient doing well this morning. Tolerated debridement well yesterday. Discussed IJ placement and need for IV abx. Discussed that we are working with surgery and ID to try to improve the healing of his sacral ulcer. 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 - Objective Vital Signs & Weight: Vital Signs (12 hours) Temp Pulse Resp BP BP Pulse Ox 04/25/19 04:00 99 F 88 18 135/77 95 04/24/19 19:25 98.0 F 113 H 18 110/45 L 97 04/24/19 18:24 92 16 97 04/24/19 18:20 98.4 F 92 18 165/71 H 97 Weight Admit Weight 117.934 kg Weight 111.13 kg Most Recent Monitor Data Heart Rate from ECG 76 NIBP 125/69 Respiration from ECG 16 I&O: 04/23/19 04/24/19 04/25/19 06:59 06:59 06:59 Intake Total 1820 480 Output Total 850 Balance 970 480 Result Diagrams: 04/25/19 05:20 04/25/19 05:20 Phys Exam - Physical Examination Constitutional: NAD HEENT: moist MMs, sclera anicteric Neck: supple, full ROM Respiratory: no wheezing, clear to auscultation bilateral Cardiovascular: RRR, no significant murmur Gastrointestinal: soft, non-tender, positive bowel sounds Musculoskeletal: no edema, pulses present Neurological: moves all 4 limbs Psychiatric: normal affect, A&O x 3 Skin: normal turgor Deviation from normal: bandaging clean, dry intact Dx/Plan (1) CAD (coronary artery disease) Code(s): I25.10 - ATHSCL HEART DISEASE OF [place] CORONARY ARTERY W/O ANG PCTRS Status: Chronic (2) Diabetes mellitus Code(s): E11.9 - TYPE 2 DIABETES MELLITUS WITHOUT COMPLICATIONS Status: Chronic (3) ESRD (end stage renal disease) on dialysis Code(s): N18.6 - END STAGE RENAL DISEASE; Z99.2 - DEPENDENCE ON RENAL DIALYSIS Status: Acute (4) Hypotension Status: Acute (5) CORNELIUS (obstructive sleep apnea) Code(s): G47.33 - OBSTRUCTIVE SLEEP APNEA (ADULT) (PEDIATRIC) Status: Chronic (6) Pulmonary embolism Code(s): I26.99 - OTHER PULMONARY EMBOLISM WITHOUT ACUTE COR PULMONALE Status : Acute (7) Sacral osteomyelitis Code(s): M46.28 - OSTEOMYELITIS OF [place], SACRAL AND SACROCOCCYGEAL REGION Status: Acute (8) Symptomatic anemia Code(s): D64.9 - ANEMIA, UNSPECIFIED Status: Acute - Plan Plan: 48 y/o M h/o PE, ESRD on HD, CHF, DMII admitted to medical inpatient for further treatment and evaluation of PE, Hypotension, sx anemia, and stage 4 decubitus ulcer, found to have sacral osteo on MRI. #Sacral Decubitus Ulcer, stage 4, s/p multiple debridements - Dr. Allred, gen surg, consulted, debridement on 04/13, 04/19, and 04/20, 04/24, appreciate further recs. Necrotic tissue requiring wide excision. Wound vac in place. Diverting colostomy in place. - MRI pelvis concern for osteitis vs early osteo - Wound Cx x2 E. Coli. Dr. Cornejo consulted and recommends meropenem 500mg QD with administration after HD on dialysis days and end date June 01. He also rec weekly cbc, crp. Patient had IJ central line placed surgically 04/24. Appreciate recommendations. - Meropenem started 04/23, continue. Rocephin (04/17-04/22). zosyn (04/11-04/17), vanc (04/11-04/20). 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 2 u plt;04/18, . 2u FFP; 04/20 x2 - Hb 9.5 this AM, up from yesterday, will continue to monitor - Hb electrophoresis - positive for beta thalassemia minor - started on epogen by nephro #Pulmonary Embolism - [facility] for cholecystectomy, pt intubated and sedated for extended period of time. - Developed PE, sacral decubitus ulceration over course of stay - Home Eliquis 2.5 mg BID held for renal impairment - Heparin held for sx 04/24, restarted evening 04/24 6 hrs post-op #Hypercalcemia, hypoalbumin, hyerphosphatemia -> likely hypercalcemia 2/2 infection, resolved - Corrected Ca 10.3 this morning, wnl. - Not consistent with ESRD secondary hyperparathyroidism, concern for malignant hypercalcemia vs infectious hypercalcemia - 1-25 vit D 4, SPEP and UPEP negative, Haptoglobin 360 likely acute phase reactant. Hb electrophoresis beta thal minor - PTHrP wnl. 24hr calcium WNL - CT chest, abd, pelvis - no significant lymphadenopathy or masses noted other than vague density in spleen - on Renvela and vit d 50,000u q7d #Urinary Retention - Symptoms of urinary overflow, Consistently elevated post-void residuals - on flomax daily, tapia placed 04/19. Will collect 24hr urine for study, attempt to bladder train, and remove tapia when possible #Chronic Constipation, s/p diverting colostomy - good bowel sounds, passing gas, ostomy clean, pink. Shahida-appearing stool. Dressing c/d/i. #HTN - initially held 2/2 hypotension, restarted coreg, imdur, norvasc. Will monitor. - Consider restarting lisinopril if warranted. #Atypical Chest Pain, resolved - chronic pleuritic pain 2/2 PE, cont anticoagulation. Trops trended and stable 2/2 ESRD, no acute EKG changes at admission. # ESRD on HD - HD every T,TR,Sat. On HD since 2017 - Instructional Systems Specialist consulted, will cont dialysis, appreciate recs. Monitoring lytes #DM II, insulin dependent - Hyperglycemia protocol, SSI, ACHS accuchecks. CC diet #CORNELIUS - CPAP QHS, CPAP HS #Hx of CAD, with [place] - S/P X3 stents. [place] in 2018. Cont effient and lasix #Hypotension, resolved - at presentation 2/2 nitro given, right fem line placed, no pressors required. BP stable currently, will monitor - Right fem line removed on 04/19. Left subclavian CL in place (04/19), c/d/i Code Status: Full code Diet: CC/renal-high protein DVT ppx: Heparin gtt for PE Dispo: Improved and stable. Admitted to medical inpatient. Debridement x3, sacral MRI concern for osteo, possible re-debridement today. Cont IV abx, will need 6-8 weeks. Apprec surgery and ID recommendations and assistance. Addendum - Attending - Attending Attestation Date/Time: 04/25/19 3016 I personally evaluated the patient and discussed the management with Dr. Hollis I agree with the History, Examination, Assessment and Plan documented above with any addition or exceptions noted below - Patient c/o pain in area of ulcer. Afebrile VSS. A/P: 1) Infected Stage 4 sacral decubitus - underwent wound debridement yesterday; appreciate surgery assistance; continue IV abx and wound vac. 2) DM- resume longer acting insulin and continue sliding scale 3) ESRD- continue HD
[2019-04-25 05:46] LABS: #Eosinphils 0.3 thou/uL (0.0-0.7); #Lymphocytes 1.5 thou/uL (1.20-3.40); #Monocytes 0.6 thou/uL (0.11-0.59); #Neutrophils 7.1 thou/uL (1.40-6.50); %Basophils 0.3 % (0.0-1.0); %Lymphocytes 15.4 % (21.0-51.0); %Monocytes 6.7 % (0.0-10.0); %Neutrophils 74.6 % (42.0-75.0); Hemoglobin 8.6 g/dL (14.0-18.0); Mean Corpuscular Hemoglobin 26.2 pg (27.0-31.0); Mean Corpuscular Volume 79.3 fL (78.0-98.0); Mean Platelet Volume 8.4 fL (7.4-10.4); Platelet Count 353 thou/uL (130-400); Red Blood Cell (RBC) Count 3.27 mill/uL (4.70-6.10); White Blood Cell (WBC) Count 9.5 thou/uL (4.8-10.8)
[2019-04-25 06:12] LABS: ALT (SGPT) 10 U/L (8-55); AST (SGOT) 14 U/L (5-34); Albumin 2.9 g/dL (3.5-5.0); Alkaline Phosphatase 106 U/L (40-110); Anion Gap 17 mmol/L (10-20); BUN (Urea Nitrogen) 41 mg/dL (8.9-20.6); Bilirubin, Total 0.3 mg/dL (0.2-1.2); Calc. Creatinine Clearance 33 mL/min (70-130); Calcium 9.4 mg/dL (7.8-10.44); Carbon Dioxide 21 mmol/L (22-29); Chloride 101 mmol/L (98-107); Estimated GFR-MDRD 15; Globulin 4.3 g/dL (2.4-3.5); Glucose 213 mg/dL (70-105); Potassium 3.7 mmol/L (3.5-5.1); Protein, Total 7.2 g/dL (6.0-8.3); Sodium 135 mmol/L (136-145)
[2019-04-25] MEDS: Acetaminophen 500 MG TAB PO PRN (06:51)
[2019-04-25] MEDS: Heparin 25,000 units/D5W 500 ML IVPB SCH ×2 (06:52→20:43)
[2019-04-25] MEDS: Mometasone 100 MCG HFA INHALER INH SCH ×2 (07:17→18:06)
[2019-04-25 08:20] LABS: Vancomycin, Random 5.3 ug/mL (See Comment)
[2019-04-25] MEDS ORDERED: Heparin 10,000 UNITS/ 10 ML VIAL ONE (11:11)
[2019-04-25] MEDS: fentaNYL Citrate/PF 2,000 MCG in Sodium Chloride 0.9% 60 ML IV PRN (12:35)
--- NOTE | 2019-04-25 12:46 | PRG ---
DATE OF SERVICE: 04/25/2019 SUBJECTIVE: Patient was seen and examined at bedside and overnight events noted. Patient denies any shortness of breath or chest pain or palpitation. No history of nausea or vomiting or diarrhea or fever or chills or cramps. OBJECTIVE: GENERAL: This is a well-built male, in no acute distress. VITAL SIGNS: Temperature 99.1. Heart rate 97. Respiratory rate 18. Blood pressure 134/81. HEENT: Atraumatic, normocephalic. Oral mucosa is moist. NECK: Supple. CARDIOVASCULAR: S1, S2 heard. Rate and rhythm regular. RESPIRATORY: Clear to auscultation. GASTROINTESTINAL: Abdomen is soft. MUSCULOSKELETAL: No tenderness. No edema. DERMATOLOGIC: No skin rash. NEUROLOGIC: Alert and awake and oriented X3. No focal neurologic deficits. Moving all the extremities. PSYCHIATRIC: Mood and affect normal. LABORATORY DATA: Potassium is 3.7, BUN is 41, and creatinine is 4.2. ASSESSMENT AND PLAN: 1. End-stage renal disease, continue dialysis as tolerated. 2. Edema, controlled. 3. Hypertension, stable. 4. Anemia, monitor hemoglobin. Continue dialysis as tolerated. Job ID: [id number]
[2019-04-25] MEDS: Polyethylene Glycol 3350 17 GM Packet PO SCH (12:49)
[2019-04-25] MEDS: Famotidine 20 MG TAB PO SCH (12:50)
[2019-04-25] MEDS: Furosemide 40 MG TAB PO SCH (12:51)
[2019-04-25] MEDS: Isosorbide Mononitrate (ER) 30 MG TAB PO SCH (12:51)
[2019-04-25] MEDS: Lisinopril 2.5 MG TAB PO SCH (12:51)
[2019-04-25] MEDS: Amlodipine 10 MG TAB PO SCH (12:51)
[2019-04-25] MEDS: Folic Acid/Vit B Comp W-C PO SCH (12:51)
[2019-04-25] MEDS: Carvedilol 25 MG TAB PO SCH ×2 (12:52→20:42)
[2019-04-25] MEDS: Tamsulosin HCl 0.4 MG CAP PO SCH (12:52)
[2019-04-25] MEDS: Senokot S 8.6-50 MG TAB PO SCH ×2 (12:52→22:28)
[2019-04-25] MEDS: Metoclopramide HCl 10 MG TAB PO SCH ×4 (12:56→20:42)
[2019-04-25] MEDS ORDERED: Piperacillin/Tazobactam 0.75 GM in Sodium Chloride 0.9% 100 ML IVPB PRN (12:56)
[2019-04-25] MEDS: Sevelamer Carbonate 800 MG TAB PO SCH ×3 (12:57→17:51)
[2019-04-25] MEDS: Piperacillin/Tazobactam 2.25 GM in Sodium Chloride 0.9% 100 ML IVPB SCH ×2 (15:35→20:43)
[2019-04-25] MEDS: EPOETIN ALFA-EPBX (ESRD) 10,000 UNIT/ML VIAL IVP SCH (15:36)
[2019-04-25] MEDS: Acetaminophen 500 MG TAB PO SCH ×2 (17:57→23:23)
[2019-04-25] MEDS: HumaLOG 300 UNITS/3 ML VIAL SC PRN (17:58)
[2019-04-25] MEDS: Gabapentin 300 MG CAP PO SCH (20:42)
[2019-04-25] MEDS: HumuLIN 70/30 (300 UNITS/3 ML VIAL) SC SCH (20:42)
[2019-04-26] MEDS: fentaNYL Citrate/PF 2,000 MCG in Sodium Chloride 0.9% 60 ML IV PRN ×2 (04:31→20:26)
[2019-04-26] MEDS: Acetaminophen 500 MG TAB PO SCH ×3 (04:34→17:34)
[2019-04-26] MEDS: Piperacillin/Tazobactam 2.25 GM in Sodium Chloride 0.9% 100 ML IVPB SCH ×3 (04:35→21:13)
[2019-04-26 05:12] LABS: #Basophils 0.1 thou/uL (0.0-0.2); #Eosinphils 0.5 thou/uL (0.0-0.7); #Lymphocytes 1.9 thou/uL (1.20-3.40); #Monocytes 0.7 thou/uL (0.11-0.59); #Neutrophils 6.1 thou/uL (1.40-6.50); %Basophils 0.9 % (0.0-1.0); %Eosinophils 5.8 % (0.0-10.0); %Lymphocytes 20.5 % (21.0-51.0); %Monocytes 7.4 % (0.0-10.0); %Neutrophils 65.4 % (42.0-75.0); Hemoglobin 8.2 g/dL (14.0-18.0); Mean Corpuscular HGB CONC 32.4 g/dL (32.0-36.0); Mean Corpuscular Hemoglobin 25.6 pg (27.0-31.0); Mean Platelet Volume 8.4 fL (7.4-10.4); Platelet Count 338 thou/uL (130-400); RBC Distribution Width 20.9 % (11.5-14.5); White Blood Cell (WBC) Count 9.3 thou/uL (4.8-10.8)
--- NOTE | 2019-04-26 05:26 | PDOC.FM ---
- Subjective Subjective: Patient is doing well this morning. Reports he still has some pain with readjusting in the bed. Had requests to be transported via ambulance when he goes back [facility] the [facility] upon discharge as in the regular vehicle he states he's strapped in and his colostomy leaks. - Objective Vital Signs & Weight: Vital Signs (12 hours) Temp Pulse Resp BP BP Pulse Ox 04/26/19 04:00 98.3 F 72 18 115/69 98 04/26/19 00:07 98.4 F 78 18 105/65 99 04/25/19 20:00 99.4 F 87 18 106/86 99 Weight Admit Weight 117.934 kg Weight 111.13 kg Most Recent Monitor Data Heart Rate from ECG 76 NIBP 125/69 Respiration from ECG 16 I&O: 04/24/19 04/25/19 04/26/19 06:59 06:59 06:59 Intake Total 1820 1800 1200 Output Total 850 Balance 970 1800 1200 Result Diagrams: 04/26/19 18:02 04/26/19 04:53 Phys Exam - Physical Examination Constitutional: NAD HEENT: moist MMs, sclera anicteric Neck: supple, full ROM Respiratory: no wheezing, clear to auscultation bilateral Cardiovascular: RRR, no significant murmur Gastrointestinal: soft, non-tender diverting colostomy Musculoskeletal: pulses present BLE edema Neurological: normal sensation, moves all 4 limbs Psychiatric: normal affect, A&O x 3 Skin: normal turgor Deviation from normal: wound vac on, bandaging clean, dry, intact Dx/Plan (1) CAD (coronary artery disease) Code(s): I25.10 - ATHSCL HEART DISEASE OF [place] CORONARY ARTERY W/O ANG PCTRS Status: Chronic (2) Diabetes mellitus Code(s): E11.9 - TYPE 2 DIABETES MELLITUS WITHOUT COMPLICATIONS Status: Chronic (3) ESRD (end stage renal disease) on dialysis Code(s): N18.6 - END STAGE RENAL DISEASE; Z99.2 - DEPENDENCE ON RENAL DIALYSIS Status: Acute (4) Hypotension Status: Acute (5) CORNELIUS (obstructive sleep apnea) Code(s): G47.33 - OBSTRUCTIVE SLEEP APNEA (ADULT) (PEDIATRIC) Status: Chronic (6) Pulmonary embolism Code(s): I26.99 - OTHER PULMONARY EMBOLISM WITHOUT ACUTE COR PULMONALE Status : Acute (7) Sacral osteomyelitis Code(s): M46.28 - OSTEOMYELITIS OF [place], SACRAL AND SACROCOCCYGEAL REGION Status: Acute (8) Symptomatic anemia Code(s): D64.9 - ANEMIA, UNSPECIFIED Status: Acute - Plan Plan: 48 y/o M h/o PE, ESRD on HD, CHF, DMII admitted to medical inpatient for further treatment and evaluation of PE, Hypotension, sx anemia, and stage 4 decubitus ulcer, found to have sacral osteo on MRI. #Sacral Decubitus Ulcer, stage 4, s/p multiple debridements - Dr. Allred, gen surg, consulted, debridement on 04/13, 04/19, and 04/20, 04/24, appreciate further recs. Necrotic tissue requiring wide excision. Wound vac in place. Diverting colostomy in place. Surgery to re-evaluate patient 04/27-04/28. - MRI pelvis concern for osteitis vs early osteo - Wound Cx x2 E. Coli. Dr. Cornejo consulted recommends IV zosyn 2.25 q 8hr, on HD days, additional 0.75 g to be given after dialysis, end date of tx = Jun 01, weekly cbc, crp. Patient had IJ central line placed surgically 04/24. Appreciate recommendations. - CRP down from 17 to 10, still elevated and will continue to monitor - Zosyn started (04/25), continue. Meropenem (06/23-04/25). Rocephin (04/17-04/22). zosyn (04/11-04/17), vanc (04/11-04/20). 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 2 u plt;04/18, . 2u FFP; 04/20 x2 - Hb 8.2 this AM, patient had surgery on 04/24 and possible that this is residual anemia from that, will continue to monitor - Hb electrophoresis - positive for beta thalassemia minor - started on epogen by nephro #Pulmonary Embolism - [facility] for cholecystectomy, pt intubated and sedated for extended period of time. - Developed PE, sacral decubitus ulceration over course of stay - Home Eliquis 2.5 mg BID held for renal impairment - Heparin held for sx 04/24, restarted evening 04/24 6 hrs post-op #Urinary Retention - Symptoms of urinary overflow, Consistently elevated post-void residuals - on flomax daily, tapia placed 04/19. Will collect 24hr urine for study, attempt to bladder train, and remove tapia when possible #Chronic Constipation, s/p diverting colostomy - good bowel sounds, passing gas, ostomy clean, pink. Dressing c/d/i. #HTN - initially held 2/2 hypotension, restarted coreg, imdur, norvasc. Will monitor. - Consider restarting lisinopril if warranted. # ESRD on HD - HD every T,TR,Sat. On HD since 2017 - [employer] Teacher consulted, will cont dialysis, appreciate recs. Monitoring lytes #DM II, insulin dependent - Hyperglycemia protocol, SSI, ACHS accuchecks. CC diet - 30u 70/30 insulin BID started last night, will monitor today and titrate accordingly #CORNELIUS - CPAP QHS, CPAP HS #Hx of CAD, with [place] - S/P X3 stents. [place] in 2018. Continue effient and lasix Code Status: Full code Diet: CC/renal-high protein DVT ppx: Heparin gtt for PE Dispo: Improved and stable. Admitted to medical inpatient. Debridement x4, sacral MRI concern for osteo, surgery to re-evaluate 04/27-04/28. Cont IV abx, will need 6-8 weeks. Apprec surgery and ID recommendations and assistance. Addendum - Attending - Attending Attestation Date/Time: 04/26/19 7046 I personally evaluated the patient and discussed the management with Dr. Hollis I agree with the History, Examination, Assessment and Plan documented above with any addition or exceptions noted below - - Patient without complaints. Afebrile VSS. A/P: 1) Complex sacral decubitus- wound improved; continue wound vac. 2) ESRD- continue HD. 3) DM- good control; continue current meds.
[2019-04-26 05:31] LABS: ALT (SGPT) 10 U/L (8-55); AST (SGOT) 14 U/L (5-34); Alkaline Phosphatase 99 U/L (40-110); Anion Gap 15 mmol/L (10-20); BUN (Urea Nitrogen) 30 mg/dL (8.9-20.6); Bilirubin, Total 0.3 mg/dL (0.2-1.2); Calc. Creatinine Clearance 40 mL/min (70-130); Carbon Dioxide 25 mmol/L (22-29); Chloride 98 mmol/L (98-107); Estimated GFR-MDRD 19; Globulin 4.3 g/dL (2.4-3.5); Glucose 143 mg/dL (70-105); Potassium 3.4 mmol/L (3.5-5.1); Protein, Total 7.3 g/dL (6.0-8.3); Sodium 135 mmol/L (136-145)
[2019-04-26] MEDS: Mometasone 100 MCG HFA INHALER INH SCH ×2 (06:38→18:46)
[2019-04-26] MEDS: Heparin 25,000 units/D5W 500 ML IVPB SCH ×2 (08:12→21:14)
[2019-04-26] MEDS: Sevelamer Carbonate 800 MG TAB PO SCH ×3 (08:34→17:34)
[2019-04-26] MEDS: Amlodipine 10 MG TAB PO SCH (08:34)
[2019-04-26] MEDS: Metoclopramide HCl 10 MG TAB PO SCH ×4 (08:34→20:33)
[2019-04-26] MEDS: Famotidine 20 MG TAB PO SCH (08:34)
[2019-04-26] MEDS: Carvedilol 25 MG TAB PO SCH ×2 (08:34→20:33)
[2019-04-26] MEDS: Senokot S 8.6-50 MG TAB PO SCH ×2 (08:35→20:33)
[2019-04-26] MEDS: Folic Acid/Vit B Comp W-C PO SCH (08:35)
[2019-04-26] MEDS: Lisinopril 2.5 MG TAB PO SCH (08:35)
[2019-04-26] MEDS: Isosorbide Mononitrate (ER) 30 MG TAB PO SCH (08:35)
[2019-04-26] MEDS: Furosemide 40 MG TAB PO SCH (08:35)
[2019-04-26] MEDS: Polyethylene Glycol 3350 17 GM Packet PO SCH (08:36)
[2019-04-26] MEDS: HumuLIN 70/30 (300 UNITS/3 ML VIAL) SC SCH ×2 (08:40→20:35)
[2019-04-26] MEDS: Tamsulosin HCl 0.4 MG CAP PO SCH (12:08)
--- NOTE | 2019-04-26 12:47 | PRG ---
DATE OF SERVICE: 04/26/2019 SUBJECTIVE: This is a 48-year-old gentleman, being seen for end-stage renal disease. The patient denied nausea, vomiting, or chest pain. OBJECTIVE: CONSTITUTIONAL: The patient is awake, alert. VITAL SIGNS: Afebrile, pulse 75, breathing 16, blood pressure 101/61. GENERAL APPEARANCE AND MENTAL STATUS: Fair. HEAD/NECK: Normocephalic. Atraumatic. EYES: EOMI. No deformity. EARS: Clear. No ulcers. NOSE: Intact. No lesions. MOUTH: Clear. No discharge. THROAT: Clear. No exudate. LUNGS: Clear. No crackles. CARDIAC: S1, S2. No rub. ABDOMEN: Benign. Bowel sounds positive. GENITALIA/RECTUM: Busby absent. BACK/EXTREMITIES: Edema 0+. NEUROLOGICAL: Alert and motor intact. SKIN: LYMPHATICS: LABORATORY DATA: Reviewed. ASSESSMENT AND PLAN: 1. Chronic kidney disease, stage 6, stable. 2. Hypertension, stable. 3. Anemia, stable. 4. Medication based on GFR, appropriate. Job ID: [id number]
--- NOTE | 2019-04-26 17:11 | PRG ---
DATE OF SERVICE: 04/26/2019 SUBJECTIVE: Mr. Ha is seen on dressing change today. His sacral decubitus wound looks much improved. There is more granulation tissue. There is no obvious necrotic muscle now. ASSESSMENT: Complex sacral wound, status post debridement yesterday. PLAN: Continue VAC changes for now. Job ID: [id number]
[2019-04-26] MEDS: HumaLOG 300 UNITS/3 ML VIAL SC PRN (17:35)
[2019-04-26 18:13] LABS: Hemoglobin 8.6 g/dL (14.0-18.0); Platelet Count 347 thou/uL (130-400)
[2019-04-26] MEDS: Gabapentin 300 MG CAP PO SCH (20:33)
[2019-04-27] MEDS: Acetaminophen 500 MG TAB PO SCH ×4 (00:26→17:17)
[2019-04-27 04:49] LABS: ALT (SGPT) 13 U/L (8-55); AST (SGOT) 16 U/L (5-34); Alkaline Phosphatase 103 U/L (40-110); Anion Gap 16 mmol/L (10-20); BUN (Urea Nitrogen) 36 mg/dL (8.9-20.6); Bilirubin, Total 0.3 mg/dL (0.2-1.2); Calc. Creatinine Clearance 37 mL/min (70-130); Calcium 9.1 mg/dL (7.8-10.44); Carbon Dioxide 24 mmol/L (22-29); Chloride 100 mmol/L (98-107); Estimated GFR-MDRD 17; Globulin 4.4 g/dL (2.4-3.5); Glucose 109 mg/dL (70-105); Potassium 3.8 mmol/L (3.5-5.1); Protein, Total 7.4 g/dL (6.0-8.3); Sodium 136 mmol/L (136-145)
[2019-04-27] MEDS: Heparin 10,000 UNITS/ 10 ML VIAL SLOW IVP SCH (05:46)
[2019-04-27] MEDS: Piperacillin/Tazobactam 2.25 GM in Sodium Chloride 0.9% 100 ML IVPB SCH ×3 (05:51→21:40)
--- NOTE | 2019-04-27 05:57 | PDOC.FM ---
- Subjective Subjective: Patient doing well this morning, having dialysis, appears in better spirits than yesterday. Reports surgery evaluated him yesterday and stated that he'd be here likely at least through the weekend. Agreeable with current plan of care. - Objective Vital Signs & Weight: Vital Signs (12 hours) Temp Pulse Resp BP Pulse Ox 04/27/19 04:00 98.4 F 87 18 150/80 H 99 04/27/19 00:00 98.6 F 84 18 145/91 H 100 04/26/19 20:00 98.4 F 90 18 149/75 H 99 Weight Admit Weight 117.934 kg Weight 111.13 kg Most Recent Monitor Data Heart Rate from ECG 76 NIBP 125/69 Respiration from ECG 16 I&O: 04/25/19 04/26/19 04/27/19 06:59 06:59 06:59 Intake Total 1800 1200 Output Total 1450 Balance 1800 1200 -1450 Result Diagrams: 04/26/19 18:02 04/27/19 03:50 Phys Exam - Physical Examination Constitutional: NAD HEENT: moist MMs, sclera anicteric Neck: supple, full ROM Respiratory: no wheezing, clear to auscultation bilateral Cardiovascular: RRR, no significant murmur Gastrointestinal: soft, non-tender colostomy in place Musculoskeletal: no edema, pulses present Neurological: normal sensation, moves all 4 limbs Psychiatric: normal affect, A&O x 3 Skin: normal turgor Deviation from normal: would vac clean, dry, intact Dx/Plan (1) CAD (coronary artery disease) Code(s): I25.10 - ATHSCL HEART DISEASE OF [place] CORONARY ARTERY W/O ANG PCTRS Status: Chronic (2) Diabetes mellitus Code(s): E11.9 - TYPE 2 DIABETES MELLITUS WITHOUT COMPLICATIONS Status: Chronic (3) ESRD (end stage renal disease) on dialysis Code(s): N18.6 - END STAGE RENAL DISEASE; Z99.2 - DEPENDENCE ON RENAL DIALYSIS Status: Acute (4) Hypotension Status: Acute (5) CORNELIUS (obstructive sleep apnea) Code(s): G47.33 - OBSTRUCTIVE SLEEP APNEA (ADULT) (PEDIATRIC) Status: Chronic (6) Pulmonary embolism Code(s): I26.99 - OTHER PULMONARY EMBOLISM WITHOUT ACUTE COR PULMONALE Status : Acute (7) Sacral osteomyelitis Code(s): M46.28 - OSTEOMYELITIS OF [place], SACRAL AND SACROCOCCYGEAL REGION Status: Acute (8) Symptomatic anemia Code(s): D64.9 - ANEMIA, UNSPECIFIED Status: Acute - Plan Plan: 48 y/o M h/o PE, ESRD on HD, CHF, DMII admitted to medical inpatient for further treatment and evaluation of PE, Hypotension, sx anemia, and stage 4 decubitus ulcer, found to have sacral osteo on MRI. #Sacral Decubitus Ulcer, stage 4, s/p multiple debridements - Dr. Allred, gen surg, consulted, debridement on 04/13, 04/19, and 04/20, 04/24, appreciate further recs. Necrotic tissue requiring wide excision. Wound vac in place. Diverting colostomy in place. Surgery re-evaluated patient 04/26, rec continued wound vac changes for now. - MRI pelvis concern for osteitis vs early osteo - Wound Cx x2 E. Coli. Dr. Cornejo consulted recommends IV zosyn 2.25 q 8hr, on HD days, additional 0.75 g to be given after dialysis, end date of tx = Jun 01, weekly cbc, crp. Patient had IJ central line placed surgically 04/24. Appreciate recommendations. - CRP down from 17 to 10, still elevated and will continue to monitor - Zosyn started (04/25), continue. Meropenem (06/23-04/25). Rocephin (04/17-04/22). zosyn (04/11-04/17), vanc (04/11-04/20). 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 2 u plt;04/18, . 2u FFP; 04/20 x2 - Hb 8.6 04/26 afternoon, stable - Hb electrophoresis - positive for beta thalassemia minor - started on epogen by nephro #Pulmonary Embolism - [facility] for cholecystectomy, pt intubated and sedated for extended period of time. - Developed PE, sacral decubitus ulceration over course of stay - Home Eliquis 2.5 mg BID held for renal impairment - Heparin held for sx 04/24, restarted evening 04/24 6 hrs post-op #Urinary Retention - Symptoms of urinary overflow, Consistently elevated post-void residuals - on flomax daily, tapia placed 04/19. Will collect 24hr urine for study, attempt to bladder train, and remove tapia when possible #Chronic Constipation, s/p diverting colostomy - good bowel sounds, passing gas, ostomy clean, pink. Dressing c/d/i. #HTN - initially held 2/2 hypotension, restarted coreg, imdur, norvasc. Will monitor. - Consider restarting lisinopril if warranted. # ESRD on HD - HD every T,TR,Sat. 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 Monitoring lytes #DM II, insulin dependent - Hyperglycemia protocol, SSI, ACHS accuchecks. CC diet - 30u 70/30 insulin HS, 32u 70/30 qam per short-acting requirements from last night #CORNELIUS - CPAP QHS, CPAP HS #Hx of CAD, with [place] - S/P X3 stents. [place] in 2018. Continue effient and lasix Code Status: Full code Diet: CC/renal-high protein DVT ppx: Heparin gtt for PE Dispo: Improved and stable. Admitted to medical inpatient. Debridement x4, sacral MRI concern for osteo, surgery rec continued wound vac changes. Cont IV abx, will need 6-8 weeks. Apprec surgery and ID recommendations and assistance. Addendum - Attending - Attending Attestation Date/Time: 04/27/19 1231 I personally evaluated the patient and discussed the management with Dr. Hollis I agree with the History, Examination, Assessment and Plan documented above with any addition or exceptions noted below- Patient without complaints. Afebrile VSS. A/P: 1) Stage 4 sacral decubitus ulcer- continue abx; Continue wound care. 2) DM- BG improved; continue current abx
[2019-04-27] MEDS: Metoclopramide HCl 10 MG TAB PO SCH ×4 (08:17→20:12)
[2019-04-27] MEDS: Sevelamer Carbonate 800 MG TAB PO SCH ×3 (08:17→12:52)
[2019-04-27] MEDS: Polyethylene Glycol 3350 17 GM Packet PO SCH (08:55)
[2019-04-27] MEDS: Amlodipine 10 MG TAB PO SCH (09:41)
[2019-04-27] MEDS: Famotidine 20 MG TAB PO SCH (09:41)
[2019-04-27] MEDS: Carvedilol 25 MG TAB PO SCH ×2 (09:41→20:12)
[2019-04-27] MEDS: Folic Acid/Vit B Comp W-C PO SCH (09:41)
[2019-04-27] MEDS: Furosemide 40 MG TAB PO SCH (09:41)
[2019-04-27] MEDS: Lisinopril 2.5 MG TAB PO SCH (09:42)
[2019-04-27] MEDS: Heparin 25,000 units/D5W 500 ML IVPB SCH ×2 (09:57→20:34)
[2019-04-27] MEDS: Mometasone 100 MCG HFA INHALER INH SCH ×2 (11:15→20:21)
--- NOTE | 2019-04-27 11:40 | PRG ---
DATE OF SERVICE: SUBJECTIVE: A 48-year-old gentleman being seen for end-stage renal disease. The patient denied nausea, vomiting, or chest pain. OBJECTIVE: CONSTITUTIONAL: The patient is awake and alert. VITAL SIGNS: Pulse 85, breathing 16, blood pressure . GENERAL APPEARANCE AND MENTAL STATUS: Fair. HEAD/NECK: Normocephalic. Atraumatic. EYES: EOMI. No deformity. EARS: Clear. No ulcers. NOSE: Intact. No lesions. MOUTH: Clear. No discharge. THROAT: Clear. No exudate. LUNGS: Clear. No crackles. CARDIAC: S1, S2. No rub. ABDOMEN: Benign. Bowel sounds positive. GENITALIA/RECTUM: Busby absent. BACK/EXTREMITIES: Edema 0+. NEUROLOGICAL: Alert and motor intact. SKIN: LYMPHATICS: LABORATORY DATA: Reviewed. ASSESSMENT AND PLAN: 1. Stage 6 chronic kidney disease, continue hemodialysis. 2. Hypertension, stable. 3. Anemia, stable. 4. Medication based on GFR appropriate. Job ID: [id number]
[2019-04-27] MEDS: HumuLIN 70/30 (300 UNITS/3 ML VIAL) SC SCH ×2 (12:47→20:36)
[2019-04-27] MEDS: Tamsulosin HCl 0.4 MG CAP PO SCH (12:52)
[2019-04-27] MEDS: Isosorbide Mononitrate (ER) 30 MG TAB PO SCH (12:55)
[2019-04-27] MEDS: Ergocalciferol 1.25 MG(50,000 UNITS) CAP PO SCH (13:14)
[2019-04-27] MEDS: Senokot S 8.6-50 MG TAB PO SCH ×2 (13:14→20:12)
[2019-04-27] MEDS: fentaNYL Citrate/PF 2,000 MCG in Sodium Chloride 0.9% 60 ML IV PRN (13:34)
[2019-04-27] MEDS ORDERED: Acetaminophen 500 MG TAB PO PRN (18:30)
[2019-04-27] MEDS: EPOETIN ALFA-EPBX (ESRD) 10,000 UNIT/ML VIAL IVP SCH (18:59)
[2019-04-27] MEDS: Gabapentin 300 MG CAP PO SCH (20:12)
[2019-04-27] MEDS: diphenhydrAMINE 25 MG CAP PO PRN (20:32)
[2019-04-28 04:31] LABS: ALT (SGPT) 12 U/L (8-55); AST (SGOT) 16 U/L (5-34); Albumin 3.1 g/dL (3.5-5.0); Alkaline Phosphatase 100 U/L (40-110); Anion Gap 12 mmol/L (10-20); BUN (Urea Nitrogen) 21 mg/dL (8.9-20.6); Bilirubin, Total 0.3 mg/dL (0.2-1.2); Calc. Creatinine Clearance 49 mL/min (70-130); Calcium 9.1 mg/dL (7.8-10.44); Carbon Dioxide 28 mmol/L (22-29); Chloride 101 mmol/L (98-107); Estimated GFR-MDRD 23; Globulin 4.4 g/dL (2.4-3.5); Glucose 118 mg/dL (70-105); Potassium 4.2 mmol/L (3.5-5.1); Protein, Total 7.5 g/dL (6.0-8.3); Sodium 137 mmol/L (136-145)
--- NOTE | 2019-04-28 05:22 | PDOC.FM ---
- Subjective Subjective: Patient doing well this morning, enjoying his breakfast. States that he gets nauseous at times with the heparin flush, discussed with patient that he has anti-nausea medications on prn. Discussed with patient that we are following along with surgery so do not want to transfer over from heparin to eliquis until we know for certain he will not require any further surgeries. Patient agreeable with plan of care. - Objective Vital Signs & Weight: Vital Signs (12 hours) Temp Pulse Resp BP BP Pulse Ox 04/28/19 03:54 98.6 F 80 18 149/83 H 99 04/28/19 00:00 98.1 F 92 18 144/82 H 99 04/27/19 20:00 98 04/27/19 19:23 97.9 F 92 20 161/82 H 98 Weight Admit Weight 117.934 kg Weight 111.13 kg Most Recent Monitor Data Heart Rate from ECG 76 NIBP 125/69 Respiration from ECG 16 I&O: 04/26/19 04/27/19 04/28/19 06:59 06:59 06:59 Intake Total 1200 1850 1250 Output Total 2250 1200 Balance 1200 -400 50 Result Diagrams: 04/26/19 18:02 04/28/19 03:40 Phys Exam - Physical Examination Constitutional: NAD HEENT: moist MMs, sclera anicteric Neck: supple, full ROM Respiratory: no wheezing, clear to auscultation bilateral Cardiovascular: RRR, no significant murmur Gastrointestinal: soft, non-tender Normal colostomy output Musculoskeletal: no edema, pulses present Neurological: normal sensation, moves all 4 limbs Psychiatric: normal affect, A&O x 3 Deviation from normal: wound vac in place, c/d/i. Dx/Plan (1) CAD (coronary artery disease) Code(s): I25.10 - ATHSCL HEART DISEASE OF [place] CORONARY ARTERY W/O ANG PCTRS Status: Chronic (2) Diabetes mellitus Code(s): E11.9 - TYPE 2 DIABETES MELLITUS WITHOUT COMPLICATIONS Status: Chronic (3) ESRD (end stage renal disease) on dialysis Code(s): N18.6 - END STAGE RENAL DISEASE; Z99.2 - DEPENDENCE ON RENAL DIALYSIS Status: Chronic (4) Hypotension Status: Resolved (5) CORNELIUS (obstructive sleep apnea) Code(s): G47.33 - OBSTRUCTIVE SLEEP APNEA (ADULT) (PEDIATRIC) Status: Chronic (6) Pulmonary embolism Code(s): I26.99 - OTHER PULMONARY EMBOLISM WITHOUT ACUTE COR PULMONALE Status : Acute (7) Sacral osteomyelitis Code(s): M46.28 - OSTEOMYELITIS OF [place], SACRAL AND SACROCOCCYGEAL REGION Status: Acute (8) Symptomatic anemia Code(s): D64.9 - ANEMIA, UNSPECIFIED Status: Acute - Plan Plan: 48 y/o M h/o PE, ESRD on HD, CHF, DMII admitted to medical inpatient for further treatment and evaluation of PE, Hypotension, sx anemia, and stage 4 decubitus ulcer, found to have sacral osteo on MRI. #Sacral Decubitus Ulcer, stage 4, s/p multiple debridements - Dr. Allred, gen surg, consulted, debridement on 04/13, 04/19, and 04/20, 04/24, appreciate further recs. Necrotic tissue requiring wide excision. Wound vac in place. Diverting colostomy in place. Surgery re-evaluated patient 04/26, rec continued wound vac changes for now. - MRI pelvis concern for osteitis vs early osteo - Wound Cx x2 E. Coli. Dr. Cornejo consulted recommends IV zosyn 2.25 q 8hr, on HD days, additional 0.75 g to be given after dialysis, end date of tx = Jun 01, weekly cbc, crp. Patient had IJ central line placed surgically 04/24. Appreciate recommendations. - CRP down from 17 to 10, still elevated and will continue to monitor weekly - Zosyn started (04/25), continue. Meropenem (06/23-04/25). Rocephin (04/17-04/22). zosyn (04/11-04/17), vanc (04/11-04/20). 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 2 u plt;04/18, . 2u FFP; 04/20 x2 - Hb 8.6 04/26 afternoon, stable - Hb electrophoresis - positive for beta thalassemia minor - started on epogen by nephro #Pulmonary Embolism - [facility] for cholecystectomy, pt intubated and sedated for extended period of time. - Developed PE, sacral decubitus ulceration over course of stay - Home Eliquis 2.5 mg BID held for renal impairment - Heparin held for sx 04/24, restarted evening 04/24 6 hrs post-op, continue #Urinary Retention, resolved - Symptoms of urinary overflow, Consistently elevated post-void residuals - on flomax daily, tapia placed 04/19-04/21. #Chronic Constipation, s/p diverting colostomy - good bowel sounds, passing gas, ostomy clean, pink. Dressing c/d/i. #HTN - initially held 2/2 hypotension, restarted coreg, imdur, norvasc. Will monitor. - Consider restarting lisinopril if warranted. # ESRD on HD - HD every T,TR,Sat. 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 Monitoring lytes #DM II, insulin dependent - Hyperglycemia protocol, SSI, ACHS accuchecks. CC diet - 30u 70/30 insulin HS, 32u 70/30 qam per short-acting requirements from last night - patient's fasting glucose 211 this am, patient refused his 70/30 last night #CORNELIUS - CPAP QHS, CPAP HS #Hx of CAD, with [place] - S/P X3 stents. [place] in 2018. Continue effient and lasix Code Status: Full code Diet: CC/renal-high protein DVT ppx: Heparin gtt for PE Dispo: Improved and stable. Admitted to medical inpatient. Debridement x4, sacral MRI concern for osteo, surgery rec continued wound vac changes. Cont IV abx, will need 6-8 weeks. Apprec surgery and ID recommendations and assistance. Addendum - Attending - Attending Attestation Date/Time: 04/28/19 1114 I personally evaluated the patient and discussed the management with Dr. Hollis I agree with the History, Examination, Assessment and Plan documented above with any addition or exceptions noted below. Continue wound management. Surgery following. Probably need to d/c CVC before long.
[2019-04-28] MEDS: Piperacillin/Tazobactam 2.25 GM in Sodium Chloride 0.9% 100 ML IVPB SCH ×3 (06:02→21:55)
[2019-04-28] MEDS: fentaNYL Citrate/PF 2,000 MCG in Sodium Chloride 0.9% 60 ML IV PRN (07:06)
[2019-04-28] MEDS: Mometasone 100 MCG HFA INHALER INH SCH ×2 (07:20→20:08)
[2019-04-28] MEDS: Heparin 25,000 units/D5W 500 ML IVPB SCH ×2 (08:31→20:06)
[2019-04-28] MEDS: Carvedilol 25 MG TAB PO SCH ×2 (08:37→20:09)
[2019-04-28] MEDS: Metoclopramide HCl 10 MG TAB PO SCH ×4 (08:37→20:09)
[2019-04-28] MEDS: Isosorbide Mononitrate (ER) 30 MG TAB PO SCH (08:37)
[2019-04-28] MEDS: Sevelamer Carbonate 800 MG TAB PO SCH ×3 (08:37→17:24)
[2019-04-28] MEDS: Lisinopril 2.5 MG TAB PO SCH (08:37)
[2019-04-28] MEDS: Folic Acid/Vit B Comp W-C PO SCH (08:37)
[2019-04-28] MEDS: Famotidine 20 MG TAB PO SCH (08:37)
[2019-04-28] MEDS: Polyethylene Glycol 3350 17 GM Packet PO SCH (08:38)
[2019-04-28] MEDS: Senokot S 8.6-50 MG TAB PO SCH ×2 (08:38→20:09)
[2019-04-28] MEDS: Amlodipine 10 MG TAB PO SCH (08:38)
[2019-04-28] MEDS: Furosemide 40 MG TAB PO SCH (08:38)
[2019-04-28] MEDS: HumuLIN 70/30 (300 UNITS/3 ML VIAL) SC SCH ×2 (11:00→20:09)
[2019-04-28] MEDS: Tamsulosin HCl 0.4 MG CAP PO SCH (11:54)
--- NOTE | 2019-04-28 12:09 | PRG ---
DATE OF SERVICE: 04/28/2019 SUBJECTIVE: A 48-year-old gentleman is being seen for end-stage kidney disease. The patient denied any nausea, vomiting, or chest pain. OBJECTIVE: GENERAL: The patient is awake and alert. VITAL SIGNS: Pulse 85, breathing 16, blood pressure 156/91. GENERAL APPEARANCE AND MENTAL STATUS: Fair. HEAD/NECK: Normocephalic. Atraumatic. EYES: EOMI. No deformity. EARS: Clear. No ulcers. NOSE: Intact. No lesions. MOUTH: Clear. No discharge. THROAT: Clear. No exudate. LUNGS: Clear. No crackles. CARDIAC: S1, S2. No rub. ABDOMEN: Benign. Bowel sounds positive. GENITALIA/RECTUM: Busby absent. BACK/EXTREMITIES: Edema 0+. NEUROLOGICAL: Alert and motor intact. SKIN: LYMPHATICS: LABORATORY DATA: Reviewed. ASSESSMENT: 1. Stage 6 chronic kidney disease. Plan dialysis. 2. Hypertension, stable. 3. Anemia, stable. 4. Medication based on GFR appropriate. Job ID: [id number]
[2019-04-28] MEDS: HumaLOG 300 UNITS/3 ML VIAL SC PRN ×2 (17:23→20:09)
[2019-04-28 18:22] LABS: Hemoglobin 8.6 g/dL (14.0-18.0); Platelet Count 366 thou/uL (130-400)
[2019-04-28] MEDS: Gabapentin 300 MG CAP PO SCH (20:08)
[2019-04-29] MEDS: fentaNYL Citrate/PF 2,000 MCG in Sodium Chloride 0.9% 60 ML IV PRN (00:58)
[2019-04-29 05:00] LABS: ALT (SGPT) 11 U/L (8-55); AST (SGOT) 12 U/L (5-34); Alkaline Phosphatase 98 U/L (40-110); Anion Gap 15 mmol/L (10-20); BUN (Urea Nitrogen) 28 mg/dL (8.9-20.6); Bilirubin, Total 0.3 mg/dL (0.2-1.2); Calc. Creatinine Clearance 43 mL/min (70-130); Calcium 8.8 mg/dL (7.8-10.44); Carbon Dioxide 21 mmol/L (22-29); Chloride 103 mmol/L (98-107); Estimated GFR-MDRD 20; Globulin 4.1 g/dL (2.4-3.5); Glucose 112 mg/dL (70-105); Potassium 4.3 mmol/L (3.5-5.1); Protein, Total 7.1 g/dL (6.0-8.3); Sodium 135 mmol/L (136-145)
--- NOTE | 2019-04-29 05:44 | PDOC.FM ---
- Subjective Subjective: Patient doing well this morning, getting ready for dialysis today. Reports he is having some pain, at baseline. Reports anesthesia came to talk with him yesterday and plans are to transition from MID LEVEL PROVIDER pump to PO meds today, patient agreeable to try. - Objective Vital Signs & Weight: Vital Signs (12 hours) Temp Pulse Resp BP Pulse Ox 04/29/19 04:00 98.5 F 80 20 154/81 H 99 04/28/19 20:08 90 16 98 04/28/19 19:55 97 04/28/19 19:48 98.5 F 92 20 160/81 H 97 Weight Admit Weight 117.934 kg Weight 112.49 kg Most Recent Monitor Data Heart Rate from ECG 76 NIBP 125/69 Respiration from ECG 16 I&O: 04/27/19 04/28/19 04/29/19 06:59 06:59 06:59 Intake Total 1850 1250 Output Total 2250 1325 Balance -400 -75 Result Diagrams: 04/28/19 17:30 04/29/19 04:08 Phys Exam - Physical Examination Constitutional: NAD HEENT: PERRLA, moist MMs Neck: supple, full ROM Respiratory: no wheezing, clear to auscultation bilateral Cardiovascular: no significant murmur Gastrointestinal: soft, non-tender colostomy in place Musculoskeletal: no edema, pulses present Neurological: normal sensation, moves all 4 limbs Lymphatic: no nodes Psychiatric: normal affect, A&O x 3 Skin: no rash, normal turgor Deviation from normal: wound vac in place, c/d/i Dx/Plan (1) CAD (coronary artery disease) Code(s): I25.10 - ATHSCL HEART DISEASE OF [place] CORONARY ARTERY W/O ANG PCTRS Status: Chronic (2) Diabetes mellitus Code(s): E11.9 - TYPE 2 DIABETES MELLITUS WITHOUT COMPLICATIONS Status: Chronic (3) ESRD (end stage renal disease) on dialysis Code(s): N18.6 - END STAGE RENAL DISEASE; Z99.2 - DEPENDENCE ON RENAL DIALYSIS Status: Chronic (4) Hypotension Status: Resolved (5) CORNELIUS (obstructive sleep apnea) Code(s): G47.33 - OBSTRUCTIVE SLEEP APNEA (ADULT) (PEDIATRIC) Status: Chronic (6) Pulmonary embolism Code(s): I26.99 - OTHER PULMONARY EMBOLISM WITHOUT ACUTE COR PULMONALE Status : Acute (7) Sacral osteomyelitis Code(s): M46.28 - OSTEOMYELITIS OF VERTEBRA, SACRAL AND SACROCOCCYGEAL REGION Status: Acute (8) Symptomatic anemia Code(s): D64.9 - ANEMIA, UNSPECIFIED Status: Acute - Plan Plan: 48 y/o M h/o PE, ESRD on HD, CHF, DMII admitted to medical inpatient for further treatment and evaluation of PE, Hypotension, sx anemia, and stage 4 decubitus ulcer, found to have sacral osteo on MRI. #Sacral Decubitus Ulcer, stage 4, s/p multiple debridements - Dr. Allred, gen surg, consulted, debridement on 04/13, 04/19, and 04/20, 04/24, appreciate further recs. Necrotic tissue requiring wide excision. Wound vac in place. Diverting colostomy in place. Surgery re-evaluated patient 04/26, rec continued wound vac changes for now. - MRI pelvis concern for osteitis vs early osteo - Wound Cx x2 E. Coli. Dr. Cornejo consulted recommends IV zosyn 2.25 q 8hr, on HD days, additional 0.75 g to be given after dialysis, end date of tx = Jun 01, weekly cbc, crp. Patient had IJ central line placed surgically 04/24. Appreciate recommendations. - CRP down from 17 to 10, still elevated and will continue to monitor weekly - Zosyn started (04/25), continue. Meropenem (06/23-04/25). Rocephin (04/17-04/22). zosyn (04/11-04/17), vanc (04/11-04/20). 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 2 u plt;04/18, . 2u FFP; 04/20 x2 - Hb 8.6 04/26 afternoon, stable - Hb electrophoresis - positive for beta thalassemia minor - started on epogen by nephro #Pulmonary Embolism - [facility] for cholecyst[facility], pt intubated and sedated for extended period of time. - Developed PE, sacral decubitus ulceration over course of stay - Home Eliquis 2.5 mg BID held for renal impairment - Heparin held for sx 04/24, restarted evening 04/24 6 hrs post-op, continue #Urinary Retention, resolved - Symptoms of urinary overflow, Consistently elevated post-void residuals - on flomax daily, tapia placed 04/19-04/21. #Chronic Constipation, s/p diverting colostomy - good bowel sounds, passing gas, ostomy clean, pink. Dressing c/d/i. #HTN - initially held 2/2 hypotension, restarted coreg, imdur, norvasc. Will monitor. - Consider restarting lisinopril if warranted. # ESRD on HD - HD every T,TR,Sat. On HD since 2017 - [employer] Water[employer] Machine Operator consulted, will cont dialysis, appreciate recs. Monitoring lytes #DM II, insulin dependent - Hyperglycemia protocol, SSI, ACHS accuchecks. CC diet - 30u 70/30 insulin HS, 35u 70/30 qam per short-acting requirements from last night - patient's fasting glucose 112this am #CORNELIUS - CPAP QHS, CPAP HS #Hx of CAD, with NH - S/P X3 stents. NH in 2018. Continue effient and lasix Code Status: Full code Diet: CC/renal-high protein DVT ppx: Heparin gtt for PE Dispo: Improved and stable. Admitted to medical inpatient. Debridement x4, sacral MRI concern for osteo, surgery rec continued wound vac changes. Cont IV abx, will need 6-8 weeks. Transition MID LEVEL PROVIDER pain pump > PO meds today. Apprec surgery and ID recommendations and assistance. Addendum - Attending - Attending Attestation Date/Time: 04/29/19 9576 I personally evaluated the patient and discussed the management with Dr. Hollis. I agree with the History, Examination, Assessment and Plan documented above with any addition or exceptions noted below. The patient is sitting up on the side of the bed. The patient states his cardiopulmonary specialist will be removed today. Dialysis per nephro. Sacral decub per surgery.
[2019-04-29] MEDS: Piperacillin/Tazobactam 2.25 GM in Sodium Chloride 0.9% 100 ML IVPB SCH ×3 (05:54→20:46)
[2019-04-29] MEDS: Mometasone 100 MCG HFA INHALER INH SCH ×2 (06:57→20:02)
[2019-04-29] MEDS: Metoclopramide HCl 10 MG TAB PO SCH ×4 (08:22→20:37)
[2019-04-29] MEDS: HumuLIN 70/30 (300 UNITS/3 ML VIAL) SC SCH ×2 (08:23→20:45)
[2019-04-29] MEDS ORDERED: HYDROcodone/Acetaminophen 10/325 mg Tablet PO PRN (09:18)
[2019-04-29] MEDS ORDERED: traMADol HCl 50 MG TAB PO PRN ×2 (09:19)
[2019-04-29] MEDS: Furosemide 40 MG TAB PO SCH (09:45)
[2019-04-29] MEDS: Lisinopril 2.5 MG TAB PO SCH ×2 (09:45→14:41)
[2019-04-29] MEDS: Carvedilol 25 MG TAB PO SCH ×2 (09:45→20:37)
[2019-04-29] MEDS: Famotidine 20 MG TAB PO SCH ×2 (09:45→14:42)
[2019-04-29] MEDS: Amlodipine 10 MG TAB PO SCH ×2 (09:45→14:42)
[2019-04-29] MEDS: Folic Acid/Vit B Comp W-C PO SCH (09:45)
[2019-04-29] MEDS: Isosorbide Mononitrate (ER) 30 MG TAB PO SCH ×2 (09:45→14:41)
[2019-04-29] MEDS: Sevelamer Carbonate 800 MG TAB PO SCH ×3 (09:45→16:14)
[2019-04-29] MEDS: Polyethylene Glycol 3350 17 GM Packet PO SCH (09:46)
[2019-04-29] MEDS: Senokot S 8.6-50 MG TAB PO SCH ×2 (09:46→20:37)
[2019-04-29] MEDS ORDERED: Heparin 10,000 UNITS/ 10 ML VIAL ONE (10:30)
[2019-04-29] MEDS: EPOETIN ALFA-EPBX (ESRD) 10,000 UNIT/ML VIAL IVP SCH (11:41)
[2019-04-29] MEDS: Tamsulosin HCl 0.4 MG CAP PO SCH ×2 (11:44→14:42)
--- NOTE | 2019-04-29 12:49 | PRG ---
DATE OF SERVICE: 04/29/2019 SUBJECTIVE: A 48-year-old gentleman being seen for end-stage kidney disease. The patient denied nausea, vomiting or chest pain. OBJECTIVE: See above. The patient is awake and alert. VITAL SIGNS: Pulse 75, breathing 16, blood pressure was 120/81. GENERAL APPEARANCE AND MENTAL STATUS: Fair. HEAD/NECK: Normocephalic. Atraumatic. EYES: EOMI. No deformity. EARS: Clear. No ulcers. NOSE: Intact. No lesions. MOUTH: Clear. No discharge. THROAT: Clear. No exudate. LUNGS: Clear. No crackles. CARDIAC: S1, S2. No rub. ABDOMEN: Benign. Bowel sounds positive. GENITALIA/RECTUM: Busby absent. BACK/EXTREMITIES: Edema 0+. NEUROLOGICAL: Alert and motor intact. SKIN: LYMPHATICS: LABORATORY DATA: Reviewed. ASSESSMENT: 1. Stage 6 chronic kidney disease. Plan dialysis. 2. Hypertension, stable. 3. Anemia, stable. Medication based on GFR appropriate. Job ID: [id number]
[2019-04-29] MEDS: HumaLOG 300 UNITS/3 ML VIAL SC PRN (16:14)
[2019-04-29] MEDS: Fentanyl 100 MCG/2 ML VIAL SLOW IVP PRN ×2 (17:39→20:38)
[2019-04-29] MEDS: Heparin 25,000 units/D5W 500 ML IVPB SCH (17:39)
[2019-04-29] MEDS: HYDROcodone/Acetaminophen 10/325 mg Tablet PO PRN ×2 (19:27→23:36)
[2019-04-29] MEDS: Gabapentin 300 MG CAP PO SCH (20:37)
[2019-04-30] MEDS: Fentanyl 100 MCG/2 ML VIAL SLOW IVP PRN ×6 (00:39→21:14)
[2019-04-30] MEDS: HYDROcodone/Acetaminophen 10/325 mg Tablet PO PRN ×4 (03:32→20:01)
[2019-04-30 04:48] LABS: ALT (SGPT) 11 U/L (8-55); AST (SGOT) 15 U/L (5-34); Albumin 3.1 g/dL (3.5-5.0); Alkaline Phosphatase 96 U/L (40-110); Anion Gap 14 mmol/L (10-20); BUN (Urea Nitrogen) 16 mg/dL (8.9-20.6); Bilirubin, Total 0.3 mg/dL (0.2-1.2); Calc. Creatinine Clearance 53 mL/min (70-130); Calcium 8.8 mg/dL (7.8-10.44); Carbon Dioxide 25 mmol/L (22-29); Chloride 101 mmol/L (98-107); Estimated GFR-MDRD 25; Globulin 4.1 g/dL (2.4-3.5); Glucose 83 mg/dL (70-105); Potassium 4.1 mmol/L (3.5-5.1); Protein, Total 7.2 g/dL (6.0-8.3); Sodium 136 mmol/L (136-145)
[2019-04-30] MEDS: Heparin 25,000 units/D5W 500 ML IVPB SCH ×2 (05:15→16:48)
--- NOTE | 2019-04-30 05:17 | PDOC.FM ---
- Subjective Subjective: Patient doing okay, reports that his pain is somewhat controlled on the PO pain meds. Still having pain at the site of the wound vag. - Objective Vital Signs & Weight: Vital Signs (12 hours) Temp Pulse Resp BP Pulse Ox 04/29/19 20:02 87 14 100 04/29/19 19:40 99 04/29/19 19:06 98.8 F 92 20 123/68 100 Weight Admit Weight 117.934 kg Weight 112.49 kg Most Recent Monitor Data Heart Rate from ECG 76 NIBP 125/69 Respiration from ECG 16 I&O: 04/28/19 04/29/19 04/30/19 06:59 06:59 06:59 Intake Total 1250 1630 720 Output Total 1325 1100 2100 Balance -75 530 -1380 Result Diagrams: 04/30/19 18:17 04/30/19 04:10 Phys Exam - Physical Examination Constitutional: NAD HEENT: moist MMs, sclera anicteric Neck: supple, full ROM Respiratory: no wheezing, clear to auscultation bilateral Cardiovascular: RRR, no significant murmur Gastrointestinal: soft, non-tender Musculoskeletal: pulses present Neurological: normal sensation, moves all 4 limbs Psychiatric: normal affect, A&O x 3 Deviation from normal: wound vac in place, c/d/i Dx/Plan (1) CAD (coronary artery disease) Code(s): I25.10 - ATHSCL HEART DISEASE OF [place] CORONARY ARTERY W/O ANG PCTRS Status: Chronic (2) Diabetes mellitus Code(s): E11.9 - TYPE 2 DIABETES MELLITUS WITHOUT COMPLICATIONS Status: Chronic (3) ESRD (end stage renal disease) on dialysis Code(s): N18.6 - END STAGE RENAL DISEASE; Z99.2 - DEPENDENCE ON RENAL DIALYSIS Status: Chronic (4) Hypotension Status: Resolved (5) CORNELIUS (obstructive sleep apnea) Code(s): G47.33 - OBSTRUCTIVE SLEEP APNEA (ADULT) (PEDIATRIC) Status: Chronic (6) Pulmonary embolism Code(s): I26.99 - OTHER PULMONARY EMBOLISM WITHOUT ACUTE COR PULMONALE Status : Acute (7) Sacral osteomyelitis Code(s): M46.28 - OSTEOMYELITIS OF [place], SACRAL AND SACROCOCCYGEAL REGION Status: Acute (8) Symptomatic anemia Code(s): D64.9 - ANEMIA, UNSPECIFIED Status: Acute - Plan Plan: 48 y/o M h/o PE, ESRD on HD, CHF, DMII admitted to medical inpatient for further treatment and evaluation of PE, Hypotension, sx anemia, and stage 4 decubitus ulcer, found to have sacral osteo on MRI. #Sacral Decubitus Ulcer, stage 4, s/p multiple debridements - Dr. Allred, gen surg, consulted, debridement on 04/13, 04/19, and 04/20, 04/24, appreciate further recs. Necrotic tissue requiring wide excision. Wound vac in place. Diverting colostomy in place. Surgery re-evaluated patient 04/26, rec continued wound vac changes for now. - MRI pelvis concern for osteitis vs early osteo - Wound Cx x2 E. Coli. Dr. Cornejo consulted recommends IV zosyn 2.25 q 8hr, on HD days, additional 0.75 g to be given after dialysis, end date of tx = Jun 01, weekly cbc, crp. Patient had IJ central line placed surgically 04/24. Appreciate recommendations. - CRP down from 17 to 10, still elevated and will continue to monitor weekly - Zosyn started (04/25), continue. Meropenem (06/23-04/25). Rocephin (04/17-04/22). zosyn (04/11-04/17), vanc (04/11-04/20). 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 2 u plt;04/18, . 2u FFP; 04/20 x2 - Hb 8.6 04/26 afternoon, stable - Hb electrophoresis - positive for beta thalassemia minor - started on epogen by nephro #Pulmonary Embolism - [facility] for cholecystectomy, pt intubated and sedated for extended period of time. - Developed PE, sacral decubitus ulceration over course of stay - Home Eliquis 2.5 mg BID held for renal impairment - Heparin held for sx 04/24, restarted evening 04/24 6 hrs post-op, continue #Urinary Retention, resolved - Symptoms of urinary overflow, Consistently elevated post-void residuals - on flomax daily, tapia placed 04/19-04/21. #Chronic Constipation, s/p diverting colostomy - good bowel sounds, passing gas, ostomy clean, pink. Dressing c/d/i. #HTN - initially held 2/2 hypotension, restarted coreg, imdur, norvasc. Will monitor. - Consider restarting lisinopril if warranted. # ESRD on HD - HD every T,TR,Sat. On HD since 2017 - Software Quality Assurance Specialist consulted, will cont dialysis, appreciate recs. Monitoring lytes -3.5L removed 04/29 #DM II, insulin dependent - Hyperglycemia protocol, SSI, ACHS accuchecks. CC diet - 30u 70/30 insulin HS, 35u 70/30 qam - patient's fasting glucose 83this am #CORNELIUS - CPAP QHS, CPAP HS #Hx of CAD, with [place] - S/P X3 stents. [place] in 2018. Continue effient and lasix Code Status: Full code Diet: CC/renal-high protein DVT ppx: Heparin gtt for PE Dispo: Improved and stable. Admitted to medical inpatient. Debridement x4, sacral MRI concern for osteo, surgery rec continued wound vac changes. Cont IV abx, will need 6-8 weeks. PO pain meds. Apprec surgery and ID recommendations and assistance. Addendum - Attending - Attending Attestation Date/Time: 04/30/19 1720 I personally evaluated the patient and discussed the management with Dr. Hollis. I agree with the History, Examination, Assessment and Plan documented above with any addition or exceptions noted below. The patient has been transitioned to oral pain meds. Continue wound care. Wound vac in place. Will follow surgery and ID recs. Continue antibiotics.
[2019-04-30] MEDS: Piperacillin/Tazobactam 2.25 GM in Sodium Chloride 0.9% 100 ML IVPB SCH ×3 (05:18→21:15)
[2019-04-30] MEDS: Mometasone 100 MCG HFA INHALER INH SCH ×2 (06:53→20:17)
[2019-04-30] MEDS: Lisinopril 2.5 MG TAB PO SCH (07:57)
[2019-04-30] MEDS: Isosorbide Mononitrate (ER) 30 MG TAB PO SCH (07:57)
[2019-04-30] MEDS: Sevelamer Carbonate 800 MG TAB PO SCH ×3 (07:57→15:52)
[2019-04-30] MEDS: Senokot S 8.6-50 MG TAB PO SCH ×2 (07:57→21:22)
[2019-04-30] MEDS: Famotidine 20 MG TAB PO SCH (07:57)
[2019-04-30] MEDS: Folic Acid/Vit B Comp W-C PO SCH (07:57)
[2019-04-30] MEDS: Amlodipine 10 MG TAB PO SCH (07:57)
[2019-04-30] MEDS: Carvedilol 25 MG TAB PO SCH ×2 (07:58→21:22)
[2019-04-30] MEDS: Metoclopramide HCl 10 MG TAB PO SCH ×4 (07:58→21:22)
[2019-04-30] MEDS: HumuLIN 70/30 (300 UNITS/3 ML VIAL) SC SCH ×2 (07:58→21:23)
[2019-04-30] MEDS: Furosemide 40 MG TAB PO SCH (07:58)
[2019-04-30] MEDS: Polyethylene Glycol 3350 17 GM Packet PO SCH (07:58)
[2019-04-30] MEDS: Tamsulosin HCl 0.4 MG CAP PO SCH (13:24)
--- NOTE | 2019-04-30 13:36 | PRG ---
DATE OF SERVICE: 04/30/2019 SUBJECTIVE: This is a 48-year-old gentleman being seen for end-stage kidney disease. The patient denied nausea, vomiting, or chest pain. OBJECTIVE: CONSTITUTIONAL: The patient is awake and alert. VITAL SIGNS: Pulse 75, breathing 16, and blood pressure 130/71. GENERAL APPEARANCE AND MENTAL STATUS: Fair. HEAD/NECK: Normocephalic. Atraumatic. EYES: EOMI. No deformity. EARS: Clear. No ulcers. NOSE: Intact. No lesions. MOUTH: Clear. No discharge. THROAT: Clear. No exudate. LUNGS: Clear. No crackles. CARDIAC: S1, S2. No rub. ABDOMEN: Benign. Bowel sounds positive. GENITALIA/RECTUM: Busby absent. BACK/EXTREMITIES: Edema 0+. NEUROLOGICAL: Alert and motor intact. SKIN: LYMPHATICS: LABORATORY DATA: Reviewed. ASSESSMENT: 1. Stage 6 chronic kidney disease. Continue hemodialysis. 2. Hypertension, stable. 3. Anemia, stable. Medication based on GFR appropriate. Job ID: [id number]
[2019-04-30 18:26] LABS: Platelet Count 304 thou/uL (130-400)
[2019-04-30] MEDS: Gabapentin 300 MG CAP PO SCH (21:22)
[2019-05-01] MEDS: HYDROcodone/Acetaminophen 10/325 mg Tablet PO PRN ×6 (00:04→21:01)
[2019-05-01] MEDS: Fentanyl 100 MCG/2 ML VIAL SLOW IVP PRN ×7 (01:18→22:02)
[2019-05-01] MEDS: Heparin 25,000 units/D5W 500 ML IVPB SCH (04:10)
[2019-05-01 04:40] LABS: Anion Gap 14 mmol/L (10-20); BUN (Urea Nitrogen) 26 mg/dL (8.9-20.6); Calc. Creatinine Clearance 38 mL/min (70-130); Calcium 8.9 mg/dL (7.8-10.44); Carbon Dioxide 25 mmol/L (22-29); Chloride 103 mmol/L (98-107); Estimated GFR-MDRD 17; Glucose 110 mg/dL (70-105); Potassium 4.4 mmol/L (3.5-5.1); Sodium 138 mmol/L (136-145)
[2019-05-01] MEDS: Piperacillin/Tazobactam 2.25 GM in Sodium Chloride 0.9% 100 ML IVPB SCH ×3 (05:14→21:05)
--- NOTE | 2019-05-01 05:28 | PDOC.FM ---
- Subjective Subjective: Patient doing okay, reports of pain in the area of his wound. Discussed that we' re working with surgery for further recommendations. Patient agreeable with current plan of care. - Objective Vital Signs & Weight: Vital Signs (12 hours) Temp Pulse Resp BP Pulse Ox 04/30/19 20:17 74 16 99 04/30/19 19:50 97.9 F 97 20 130/74 95 04/30/19 19:42 95 Weight Admit Weight 117.934 kg Weight 112.49 kg Most Recent Monitor Data Heart Rate from ECG 76 NIBP 125/69 Respiration from ECG 16 I&O: 04/29/19 04/30/19 05/01/19 06:59 06:59 06:59 Intake Total 1630 2172.8 2915 Output Total 1100 2100 2050 Balance 530 72.8 865 Result Diagrams: 04/30/19 18:17 05/01/19 04:01 Phys Exam - Physical Examination Constitutional: NAD HEENT: PERRLA, moist MMs Neck: supple, full ROM Respiratory: no wheezing, clear to auscultation bilateral Cardiovascular: RRR, no significant murmur Gastrointestinal: soft colostomy in place Musculoskeletal: no edema, pulses present Neurological: normal sensation, moves all 4 limbs Psychiatric: normal affect, A&O x 3 Deviation from normal: wound vac in place c/d/i Dx/Plan (1) CAD (coronary artery disease) Code(s): I25.10 - ATHSCL HEART DISEASE OF [place] CORONARY ARTERY W/O ANG PCTRS Status: Chronic (2) Diabetes mellitus Code(s): E11.9 - TYPE 2 DIABETES MELLITUS WITHOUT COMPLICATIONS Status: Chronic (3) ESRD (end stage renal disease) on dialysis Code(s): N18.6 - END STAGE RENAL DISEASE; Z99.2 - DEPENDENCE ON RENAL DIALYSIS Status: Chronic (4) Hypotension Status: Resolved (5) CORNELIUS (obstructive sleep apnea) Code(s): G47.33 - OBSTRUCTIVE SLEEP APNEA (ADULT) (PEDIATRIC) Status: Chronic (6) Pulmonary embolism Code(s): I26.99 - OTHER PULMONARY EMBOLISM WITHOUT ACUTE COR PULMONALE Status : Acute (7) Sacral osteomyelitis Code(s): M46.28 - OSTEOMYELITIS OF [place], SACRAL AND SACROCOCCYGEAL REGION Status: Acute (8) Symptomatic anemia Code(s): D64.9 - ANEMIA, UNSPECIFIED Status: Acute - Plan Plan: 48 y/o M h/o PE, ESRD on HD, CHF, DMII admitted to medical inpatient for further treatment and evaluation of PE, Hypotension, sx anemia, and stage 4 decubitus ulcer, found to have sacral osteo on MRI. #Sacral Decubitus Ulcer, stage 4, s/p multiple debridements - Dr. Allred, gen surg, consulted, debridement on 04/13, 04/19, and 04/20, 04/24, appreciate further recs. Necrotic tissue requiring wide excision. Wound vac in place. Diverting colostomy in place. Surgery re-evaluated patient 04/26, rec continued wound vac changes for now. - MRI pelvis concern for osteitis vs early osteo - Wound Cx x2 E. Coli. Dr. Cornejo consulted recommends IV zosyn 2.25 q 8hr, on HD days, additional 0.75 g to be given after dialysis, end date of tx = Jun 01, weekly cbc, crp. Patient had IJ central line placed surgically 04/24. Appreciate recommendations. - CRP down from 17 to 10, still elevated and will continue to monitor weekly - Zosyn started (04/25), continue. Meropenem (06/23-04/25). Rocephin (04/17-04/22). zosyn (04/11-04/17), vanc (04/11-04/20). 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 2 u plt;04/18, . 2u FFP; 04/20 x2 - Hb 8.0 04/30, stable - Hb electrophoresis - positive for beta thalassemia minor - started on epogen by nephro #Pulmonary Embolism - [facility] for cholecystectomy, pt intubated and sedated for extended period of time. - Developed PE, sacral decubitus ulceration over course of stay - Home Eliquis 2.5 mg BID held for renal impairment - Heparin held for sx 04/24, restarted evening 04/24 6 hrs post-op, continue #Urinary Retention, resolved - Symptoms of urinary overflow, Consistently elevated post-void residuals - on flomax daily, tapia placed 04/19-04/21. #Chronic Constipation, s/p diverting colostomy - good bowel sounds, passing gas, ostomy clean, pink. Dressing c/d/i. -encouraged patient to continue miralax #HTN - initially held 2/2 hypotension, restarted coreg, imdur, norvasc. Will monitor. - Consider restarting lisinopril if warranted. # ESRD on HD - HD every T,TR,Sat. On HD since 2017 - Steam Power Plant Operator consulted, will cont dialysis, appreciate recs. Monitoring lytes -3.5L removed 04/29 #DM II, insulin dependent - Hyperglycemia protocol, SSI, ACHS accuchecks. CC diet - 30u 70/30 insulin HS, 35u 70/30 qam - patient's fasting glucose 110this am #CORNELIUS - CPAP QHS, CPAP HS #Hx of CAD, with [place] - S/P X3 stents. [place] in 2018. Continue effient and lasix Code Status: Full code Diet: CC/renal-high protein DVT ppx: Heparin gtt for PE Dispo: Improved and stable. Admitted to medical inpatient. Debridement x4, sacral MRI concern for osteo, surgery rec continued wound vac changes. Cont IV abx, will need 6-8 weeks. PO pain meds. Apprec surgery and ID recommendations and assistance. Addendum - Attending - Attending Attestation Date/Time: 05/01/19 7707 I personally evaluated the patient and discussed the management with Dr. Hollis. I agree with the History, Examination, Assessment and Plan documented above with any addition or exceptions noted below. Per report, surgery has cleared pt for discharge. Needs either wound vac or wet to dry dressings if Prison unable to arrange wound vac. Pt will also need prolonged IV antibiotics.
[2019-05-01] MEDS: Sevelamer Carbonate 800 MG TAB PO SCH ×3 (08:11→17:05)
[2019-05-01] MEDS: Isosorbide Mononitrate (ER) 30 MG TAB PO SCH (08:12)
[2019-05-01] MEDS: Lisinopril 2.5 MG TAB PO SCH (08:12)
[2019-05-01] MEDS: Furosemide 40 MG TAB PO SCH (08:12)
[2019-05-01] MEDS: Carvedilol 25 MG TAB PO SCH ×2 (08:12→21:04)
[2019-05-01] MEDS: Metoclopramide HCl 10 MG TAB PO SCH ×4 (08:12→21:03)
[2019-05-01] MEDS: Folic Acid/Vit B Comp W-C PO SCH (08:12)
[2019-05-01] MEDS: Senokot S 8.6-50 MG TAB PO SCH ×2 (08:12→21:04)
[2019-05-01] MEDS: Famotidine 20 MG TAB PO SCH (08:13)
[2019-05-01] MEDS: Amlodipine 10 MG TAB PO SCH (08:13)
[2019-05-01] MEDS: HumuLIN 70/30 (300 UNITS/3 ML VIAL) SC SCH ×2 (08:13→21:04)
[2019-05-01] MEDS: Polyethylene Glycol 3350 17 GM Packet PO SCH (08:14)
--- NOTE | 2019-05-01 11:03 | PRG ---
DATE OF SERVICE: 05/01/2019 SUBJECTIVE: Patient was seen and examined at bedside and overnight events noted. Patient denies any shortness of breath or chest pain or palpitation. No history of nausea or vomiting or diarrhea or fever or chills or cramps. OBJECTIVE: GENERAL: This is an obese male, in no apparent distress. VITAL SIGNS: Temperature 98.6. Heart rate 70. Respiratory rate 18. Blood pressure 127/80. HEENT: Atraumatic, normocephalic. Oral mucosa is moist NECK: Supple. CARDIOVASCULAR: S1, S2 heard. Rate and rhythm regular. RESPIRATORY: Clear to auscultation. GASTROINTESTINAL: Abdomen is soft. MUSCULOSKELETAL: No tenderness. No edema. DERMATOLOGIC: No skin rash. NEUROLOGIC: Alert and awake and oriented X3. No focal neurologic deficits. Moving all the extremities. PSYCHIATRIC: Mood and affect normal. LABORATORY DATA: Potassium 4.4, BUN is 26, creatinine is 3.8. ASSESSMENT AND PLAN: 1. End-stage renal disease. Continue hemodialysis Wednesday, , Wednesday. 2. History of hypertension. 3. History of anemia. 4. Edema is controlled. We will continue dialysis TTS as tolerated. The patient is tolerating well. No complaints reported. Job ID: [id number]
--- NOTE | 2019-05-01 11:28 | PRG ---
DATE OF SERVICE: 05/01/2019 The patient was seen on morning rounds with Dr. Galindo. SUBJECTIVE: A 48-year-old male with large decubitus ulcer to the sacrum, status post debridement x3. The patient was seen on dressing change this morning. Wound looks to be healing well with good amount of granulation tissue. Small focus of necrotic tissue kvng sacrally on the left, this was sharply debrided at bedside by Dr. Galindo. The patient's wound continues to do well with wound VAC treatment. We will plan to have the patient discharged to [facility] with wound VAC, if this is not possible a transition to wet-to-dry dressings will be necessary prior to his discharge. A communication order to Case Management has been placed. The patient is otherwise stable from a surgical standpoint, and we will sign off at this time and are available if any questions or concerns arise. PHYSICAL EXAMINATION: VITAL SIGNS: Temperature 98.6, pulse 78, blood pressure 127/80, respirations 18 , and oxygen saturation of 98% on room air. GENERAL: A 48-year-old chronically ill male, handcuffed to bed. No acute distress. HEENT: Normocephalic and atraumatic. RESPIRATORY: Equal rise and fall, no respiratory distress. CARDIOVASCULAR: Regular rate and rhythm. ABDOMEN: Soft and nontender. Colostomy sites well appearing. SKIN: Sacral wound is noted. Vast majority of tissue appears viable with beginnings of granulation tissue. One focal area of necrotic tissue measuring approximately 2 x 3 cm to left mid sacrum. MUSCULOSKELETAL: Otherwise moves his extremities well. NEUROLOGIC: Alert and oriented to person, place, time, and event. Psychiatric: Normal mood and affect. LABORATORY DATA: Hemoglobin stable at 8.0, hematocrit 25.2, and platelet count 304. Sodium 138, potassium 4.4, BUN 26, creatinine 3.81, and glucose 110. Albumin 3.1. ASSESSMENT: 1. Status post loop transverse colostomy-operating well. 2. Status post repeat debridement of sacral gluteal necrotizing soft tissue- small bedside debridement today, overall doing well. PROCEDURE: Sharp debridement of necrotic sacral tissue performed at bedside. #15 blade used to sharply dissect down to bleeding tissue. Single oozing vessel required 2 figure 8 sutures with subsequent hemostasis. PLAN: 1. Small sharp debridement done at bedside today with adequate removal of necrotic tissue and subsequent hemostasis. Continue wound VAC treatment. 2. Dressing with wound VAC, plan [facility] not improve wound VAC treatment, will need wet-to-dry dressings and a transition to that dressing will be required prior to his discharge, wound care consulting and aware. 3. Continue pain management-gabapentin increased to 300 t.i.d. 4. Continue antibiotics per Infectious Disease, Dr. Cornejo recommendations. The patient is stable from surgical standpoint, we will sign off for now. Surgery remains available for any questions or concerns that arise. Job ID: [id number] MTDD
[2019-05-01] MEDS: Mometasone 100 MCG HFA INHALER INH SCH ×2 (11:38→18:26)
[2019-05-01] MEDS: Tamsulosin HCl 0.4 MG CAP PO SCH (12:25)
[2019-05-01] MEDS: Gabapentin 300 MG CAP PO SCH ×2 (14:06→21:03)
[2019-05-01 14:56] VITALS: BMI 36.6
[2019-05-01] MEDS ORDERED: Apixaban 5 MG TAB PO SCH (15:45)
[2019-05-01] MEDS: Apixaban 5 MG TAB PO SCH (21:04)
[2019-05-02] MEDS: HYDROcodone/Acetaminophen 10/325 mg Tablet PO PRN ×6 (01:08→23:43)
[2019-05-02] MEDS: Fentanyl 100 MCG/2 ML VIAL SLOW IVP PRN ×5 (02:06→20:55)
--- NOTE | 2019-05-02 05:16 | PDOC.FM ---
- Subjective Subjective: Patient doing well this morning, reports of improved pain. Discussed surgery recommendations of muscle flap/plastic surgery in the future after his wound has had a chance for further healing. Discussed that we sent in the papers to the [facility] for transfer, patient is agreeable to the plan of care at this time. - Objective Vital Signs & Weight: Vital Signs (12 hours) Temp Pulse Resp BP Pulse Ox 05/01/19 20:00 98.7 F 79 18 122/72 96 05/01/19 19:41 79 L 05/01/19 18:26 79 18 97 Weight Admit Weight 117.934 kg Weight 112.49 kg Most Recent Monitor Data Heart Rate from ECG 76 NIBP 125/69 Respiration from ECG 16 I&O: 04/30/19 05/01/19 05/02/19 06:59 06:59 06:59 Intake Total 2172.8 2915 1760 Output Total 2099 2049 1525 Balance 72.8 865 235 Result Diagrams: 04/30/19 18:17 05/02/19 05:29 Phys Exam - Physical Examination Constitutional: NAD HEENT: moist MMs, sclera anicteric Neck: supple, full ROM Respiratory: no wheezing, clear to auscultation bilateral Cardiovascular: RRR, no significant murmur Gastrointestinal: soft, positive bowel sounds colostomy in place Musculoskeletal: no edema, pulses present Neurological: normal sensation, moves all 4 limbs Psychiatric: normal affect, A&O x 3 Deviation from normal: wound vac in place c/d/i Dx/Plan (1) CAD (coronary artery disease) Code(s): I25.10 - ATHSCL HEART DISEASE OF [place] CORONARY ARTERY W/O ANG PCTRS Status: Chronic (2) Diabetes mellitus Code(s): E11.9 - TYPE 2 DIABETES MELLITUS WITHOUT COMPLICATIONS Status: Chronic (3) ESRD (end stage renal disease) on dialysis Code(s): N18.6 - END STAGE RENAL DISEASE; Z99.2 - DEPENDENCE ON RENAL DIALYSIS Status: Chronic (4) Hypotension Status: Resolved (5) CORNELIUS (obstructive sleep apnea) Code(s): G47.33 - OBSTRUCTIVE SLEEP APNEA (ADULT) (PEDIATRIC) Status: Chronic (6) Pulmonary embolism Code(s): I26.99 - OTHER PULMONARY EMBOLISM WITHOUT ACUTE COR PULMONALE Status : Acute (7) Sacral osteomyelitis Code(s): M46.28 - OSTEOMYELITIS OF [place], SACRAL AND SACROCOCCYGEAL REGION Status: Acute (8) Symptomatic anemia Code(s): D64.9 - ANEMIA, UNSPECIFIED Status: Acute - Plan Plan: 48 y/o M h/o PE, ESRD on HD, CHF, DMII admitted to medical inpatient for further treatment and evaluation of PE, Hypotension, sx anemia, and stage 4 decubitus ulcer, found to have sacral osteo on MRI. #Sacral Decubitus Ulcer, stage 4, s/p multiple debridements - Dr. Allred, gen surg, consulted, debridement on 04/13, 04/19, and 04/20, 04/24, bedside 05/01, appreciate further recs. Necrotic tissue requiring wide excision. Wound vac in place. Diverting colostomy in place. Surgery re- evaluated patient 04/26, rec continued wound vac changes for now. - MRI pelvis concern for osteitis vs early osteo - Wound Cx x2 E. Coli. Dr. Cornejo consulted recommends IV zosyn 2.25 q 8hr, on HD days, additional 0.75 g to be given after dialysis, end date of tx = Jun 01, weekly cbc, crp. Patient had IJ central line placed surgically 04/24. Appreciate recommendations. - CRP down from 17 to 10, still elevated and will continue to monitor weekly - Zosyn started (04/25), continue. Meropenem (06/23-04/25). Rocephin (04/17-04/22). zosyn (04/11-04/17), vanc (04/11-04/20). 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 2 u plt;04/18, . 2u FFP; 04/20 x2 - Hb 8.0 04/30, stable - Hb electrophoresis - positive for beta thalassemia minor - started on epogen by nephro #Pulmonary Embolism - [facility] for cholecystectomy, pt intubated and sedated for extended period of time. - Developed PE, sacral decubitus ulceration over course of stay - transitioned from heparin to home eilquis 05/01 #Urinary Retention, resolved - Symptoms of urinary overflow, Consistently elevated post-void residuals - on flomax daily, tapia placed 04/19-04/21. #Chronic Constipation, s/p diverting colostomy - good bowel sounds, passing gas, ostomy clean, pink. Dressing c/d/i. -encouraged patient to continue miralax #HTN - initially held 2/2 hypotension, restarted coreg, imdur, norvasc. Will monitor. - Consider restarting lisinopril if warranted. # ESRD on HD - HD every T,TR,Sat. On HD since 2016 - Project Engineer consulted, will cont dialysis, appreciate recs. Monitoring lytes -3.5L removed 04/29 #DM II, insulin dependent - Hyperglycemia protocol, SSI, ACHS accuchecks. CC diet - 30u 70/30 insulin HS, 35u 70/30 qam - patient's fasting glucose 98this am #CORNELIUS - CPAP QHS, CPAP HS #Hx of CAD, with MO - S/P X3 stents. MO in 2018. Continue effient and lasix Code Status: Full code Diet: CC/renal-high protein DVT ppx: PO eliquis BID Dispo: Admitted to medical inpatient. Debridement x4 + bedside debridement 05/01 , sacral MRI concern for osteo, surgery rec continued wound vac changes. Cont IV abx, will need 6-8 weeks end date 06/01. PO pain meds. Apprec surgery and ID recommendations and assistance. Stable to transfer to [facility] at this time. Addendum - Attending - Attending Attestation Date/Time: 05/02/19 1033 I personally evaluated the patient and discussed the management with Dr. Hollis. I agree with the History, Examination, Assessment and Plan documented above with any addition or exceptions noted below. The patient was seen in dialysis. He complains of decreased urination. His fluids were stopped and this is expected however we will get a bladder scan to ensure he is not retaining urine. Continue wound care and IV antibiotics. Pt waiting on [facility] bed.
[2019-05-02] MEDS: Piperacillin/Tazobactam 2.25 GM in Sodium Chloride 0.9% 100 ML IVPB SCH ×3 (05:23→21:05)
[2019-05-02 06:17] LABS: Anion Gap 14 mmol/L (10-20); BUN (Urea Nitrogen) 36 mg/dL (8.9-20.6); Calc. Creatinine Clearance 36 mL/min (70-130); Calcium 9.2 mg/dL (7.8-10.44); Carbon Dioxide 25 mmol/L (22-29); Chloride 104 mmol/L (98-107); Estimated GFR-MDRD 16; Glucose 93 mg/dL (70-105); Magnesium 2.1 mg/dL (1.6-2.6); Phosphorus 5.4 mg/dL (2.3-4.7); Potassium 4.9 mmol/L (3.5-5.1); Sodium 138 mmol/L (136-145)
[2019-05-02] MEDS: diphenhydrAMINE 25 MG CAP PO PRN (06:18)
[2019-05-02] MEDS: Mometasone 100 MCG HFA INHALER INH SCH ×2 (07:35→19:09)
[2019-05-02] MEDS: Polyethylene Glycol 3350 17 GM Packet PO SCH (07:46)
[2019-05-02] MEDS: Apixaban 5 MG TAB PO SCH ×2 (07:47→21:00)
[2019-05-02] MEDS: Folic Acid/Vit B Comp W-C PO SCH (07:47)
[2019-05-02] MEDS: Sevelamer Carbonate 800 MG TAB PO SCH ×3 (07:47→16:10)
[2019-05-02] MEDS: Furosemide 40 MG TAB PO SCH (07:47)
[2019-05-02] MEDS: Gabapentin 300 MG CAP PO SCH ×3 (07:47→21:00)
[2019-05-02] MEDS: Famotidine 20 MG TAB PO SCH (07:47)
[2019-05-02] MEDS: Metoclopramide HCl 10 MG TAB PO SCH ×4 (07:47→21:00)
[2019-05-02] MEDS: Senokot S 8.6-50 MG TAB PO SCH ×2 (07:47→21:00)
[2019-05-02] MEDS: HumuLIN 70/30 (300 UNITS/3 ML VIAL) SC SCH ×2 (07:50→21:01)
--- NOTE | 2019-05-02 08:28 | PRG ---
DATE OF SERVICE: 05/02/2019 SUBJECTIVE: Patient was seen and examined at bedside and overnight events noted. Patient denies any shortness of breath or chest pain or palpitation. No history of nausea or vomiting or diarrhea or fever or chills or cramps. OBJECTIVE: GENERAL: This is a well-built male, in no apparent distress. VITAL SIGNS: Temperature Heart rate 82. Respiratory rate 18. Blood pressure 123/75. HEENT: Atraumatic, normocephalic. Oral mucosa is moist NECK: Supple. CARDIOVASCULAR: S1, S2 heard. Rate and rhythm regular. RESPIRATORY: Clear to auscultation. GASTROINTESTINAL: Abdomen is soft. MUSCULOSKELETAL: No tenderness. No edema. DERMATOLOGIC: No skin rash. NEUROLOGIC: Alert and awake and oriented X3. No focal neurologic deficits. Moving all the extremities. PSYCHIATRIC: Mood and affect normal. LABORATORY DATA: Potassium 4.9, BUN is 36, creatinine is 3.9. ASSESSMENT AND PLAN: 1. End-stage renal disease, continue dialysis as tolerated. 2. Edema. 3. History of hypertension. 4. Chronic anemia. Plan to continue on dialysis as tolerated Wednesday, , Wednesday. Job ID: [id number]
[2019-05-02] MEDS: EPOETIN ALFA-EPBX (ESRD) 10,000 UNIT/ML VIAL IVP SCH (09:37)
[2019-05-02] MEDS ORDERED: Heparin 10,000 UNITS/ 10 ML VIAL ONE (11:11)
[2019-05-02] MEDS: Tamsulosin HCl 0.4 MG CAP PO SCH (12:11)
[2019-05-02] MEDS: Amlodipine 10 MG TAB PO SCH (12:22)
[2019-05-02] MEDS: Lisinopril 2.5 MG TAB PO SCH (12:22)
[2019-05-02] MEDS: Carvedilol 25 MG TAB PO SCH ×2 (13:09→21:03)
[2019-05-02] MEDS: Isosorbide Mononitrate (ER) 30 MG TAB PO SCH (13:09)
[2019-05-02 18:26] LABS: Platelet Count 303 thou/uL (130-400)
[2019-05-02] MEDS: Activase 2 MG VIAL CATH SCH (18:42)
[2019-05-03] MEDS: Fentanyl 100 MCG/2 ML VIAL SLOW IVP PRN ×6 (02:08→21:25)
[2019-05-03] MEDS: HYDROcodone/Acetaminophen 10/325 mg Tablet PO PRN ×5 (04:38→20:32)
[2019-05-03] MEDS: Piperacillin/Tazobactam 2.25 GM in Sodium Chloride 0.9% 100 ML IVPB SCH ×3 (05:23→21:07)
--- NOTE | 2019-05-03 05:33 | PDOC.FM ---
- Subjective Subjective: Patient doing well this morning. Had difficulty voiding yesterday afternoon, though eventually was able to stand and voided >600ml. Per patient his urine output is back at her baseline. - Objective Vital Signs & Weight: Vital Signs (12 hours) Temp Pulse Resp BP Pulse Ox 05/02/19 20:00 98.8 F 87 18 102/61 98 05/02/19 19:29 98 05/02/19 19:09 97 12 Weight Admit Weight 117.934 kg Weight 112.49 kg Most Recent Monitor Data Heart Rate from ECG 76 NIBP 125/69 Respiration from ECG 16 I&O: 05/01/19 05/02/19 05/03/19 06:59 06:59 06:59 Intake Total 2915 2700 1360 Output Total 2050 5785 800 Balance 865 -775 560 Result Diagrams: 05/02/19 18:08 05/02/19 05:29 Phys Exam - Physical Examination Constitutional: NAD HEENT: moist MMs, sclera anicteric Neck: supple, full ROM Respiratory: no wheezing, clear to auscultation bilateral Cardiovascular: RRR, no significant murmur Gastrointestinal: soft, non-tender, positive bowel sounds colostomy in place Musculoskeletal: no edema, pulses present Neurological: normal sensation, moves all 4 limbs Psychiatric: normal affect, A&O x 3 Deviation from normal: wound vac in place, c/d/i Dx/Plan (1) CAD (coronary artery disease) Code(s): I25.10 - ATHSCL HEART DISEASE OF [place] CORONARY ARTERY W/O ANG PCTRS Status: Chronic (2) Diabetes mellitus Code(s): E11.9 - TYPE 2 DIABETES MELLITUS WITHOUT COMPLICATIONS Status: Chronic (3) ESRD (end stage renal disease) on dialysis Code(s): N18.6 - END STAGE RENAL DISEASE; Z99.2 - DEPENDENCE ON RENAL DIALYSIS Status: Chronic (4) Hypotension Status: Resolved (5) CORNELIUS (obstructive sleep apnea) Code(s): G47.33 - OBSTRUCTIVE SLEEP APNEA (ADULT) (PEDIATRIC) Status: Chronic (6) Pulmonary embolism Code(s): I26.99 - OTHER PULMONARY EMBOLISM WITHOUT ACUTE COR PULMONALE Status : Acute (7) Sacral osteomyelitis Code(s): M46.28 - OSTEOMYELITIS OF [place], SACRAL AND SACROCOCCYGEAL REGION Status: Acute (8) Symptomatic anemia Code(s): D64.9 - ANEMIA, UNSPECIFIED Status: Acute - Plan Plan: 48 y/o M h/o PE, ESRD on HD, CHF, DMII admitted to medical inpatient for further treatment and evaluation of PE, Hypotension, sx anemia, and stage 4 decubitus ulcer, found to have sacral osteo on MRI. #Sacral Decubitus Ulcer, stage 4, s/p multiple debridements, stable for discharge - Dr. Allred, gen surg, consulted, debridement on 04/13, 04/19, and 04/20, 04/24, bedside 05/01, appreciate further recs. Necrotic tissue requiring wide excision. Wound vac in place. Diverting colostomy in place. Surgery re- evaluated patient 04/26, rec continued wound vac changes for now. - MRI pelvis concern for osteitis vs early osteo - Wound Cx x2 E. Coli. Dr. Cornejo consulted recommends IV zosyn 2.25 q 8hr, on HD days, additional 0.75 g to be given after dialysis, end date of tx = Jun 01, weekly cbc, crp. Patient had IJ central line placed surgically 04/24. Appreciate recommendations. - CRP down from 17 to 10, still elevated and will continue to monitor weekly - Zosyn started (04/25), continue. Meropenem (06/23-04/25). Rocephin (04/17-04/22). zosyn (04/11-04/17), vanc (04/11-04/20). 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 Cornejo 05/02, recommended either zosyn or unasyn for antibiotic coverage due to enterococcus resistance to meropenem, and he recommended against the PICC due to the patient's ESRD and will need veins for future HD access -tried to call [facility] again afternoon 05/02, line busy; will attempt to call again today and discuss our recommendations for patient #Symptomatic anemia->combination of beta thalassemia, acute blood loss, and anemia of chronic disease 2/2 ESRD, stable for discharge - s/p 7 unit pRBC; 04/11, 04/14, 04/15, 04/18, and 3u 04/19. 2 u plt;04/18, . 2u FFP; 04/20 x2 - Hb 8.0 04/30, stable - Hb electrophoresis - positive for beta thalassemia minor - started on epogen by nephro #Pulmonary Embolism, stable for discharge - [facility] for cholecystectomy, pt intubated and sedated for extended period of time. - Developed PE, sacral decubitus ulceration over course of stay - transitioned from heparin to home eilquis 05/01 #Urinary Retention, resolved - Symptoms of urinary overflow, Consistently elevated post-void residuals - on flomax daily, tapia placed 04/19-04/21. #Chronic Constipation, s/p diverting colostomy, stable for discharge - good bowel sounds, passing gas, ostomy clean, pink. Dressing c/d/i. -encouraged patient to continue miralax #HTN , stable for discharge - initially held 2/2 hypotension, restarted coreg, imdur, norvasc. Will monitor. - Consider restarting lisinopril if warranted. # ESRD on HD, stable for discharge - HD every T,TR,Sat. On HD since 2017 - Body Engineer consulted, will cont dialysis, appreciate recs. Monitoring lytes -3.5L removed 04/29 #DM II, insulin dependent, stable for discharge - Hyperglycemia protocol, SSI, ACHS accuchecks. CC diet - 30u 70/30 insulin HS, 35u 70/30 qam - patient's fasting glucose 98this am #CORNELIUS, stable for discharge - CPAP QHS, CPAP HS #Hx of CAD, with MD, stable for discharge - S/P X3 stents. MD in 2018. Continue effient and lasix Code Status: Full code Diet: CC/renal-high protein DVT ppx: PO eliquis BID Dispo: Admitted to medical inpatient. Debridement x4 + bedside debridement 05/01 , sacral MRI concern for osteo, surgery rec continued wound vac changes. Cont IV abx, will need 6-8 weeks end date 06/01. PO pain meds. Apprec surgery and ID recommendations and assistance. Stable to transfer to [facility] at this time on IV zosyn through Gaviria catheter. Addendum - Attending - Attending Attestation Date/Time: 05/03/19 1564 I personally evaluated the patient and discussed the management with Dr. Hollis. I agree with the History, Examination, Assessment and Plan documented above with any addition or exceptions noted below. Patient continues to wait on infirmary placement. He states today that he was using cpap at longterm. Will write for cpap on discharge. [facility] won't take the patient with a gaviria catheter, they are requesting a picc but this is contraindicated due to esrd. Spoke with nephro who has ok'd a midline.
[2019-05-03] MEDS: Mometasone 100 MCG HFA INHALER INH SCH ×2 (06:58→19:01)
[2019-05-03] MEDS: Polyethylene Glycol 3350 17 GM Packet PO SCH (08:21)
[2019-05-03] MEDS: Metoclopramide HCl 10 MG TAB PO SCH ×4 (08:23→20:33)
[2019-05-03] MEDS: Gabapentin 300 MG CAP PO SCH ×3 (08:23→20:33)
[2019-05-03] MEDS: Isosorbide Mononitrate (ER) 30 MG TAB PO SCH (08:24)
[2019-05-03] MEDS: Sevelamer Carbonate 800 MG TAB PO SCH ×3 (08:24→16:34)
[2019-05-03] MEDS: Amlodipine 10 MG TAB PO SCH (08:24)
[2019-05-03] MEDS: Folic Acid/Vit B Comp W-C PO SCH (08:25)
[2019-05-03] MEDS: Carvedilol 25 MG TAB PO SCH ×2 (08:25→20:33)
[2019-05-03] MEDS: Senokot S 8.6-50 MG TAB PO SCH ×2 (08:25→20:32)
[2019-05-03] MEDS: Apixaban 5 MG TAB PO SCH ×2 (08:25→20:33)
[2019-05-03] MEDS: Lisinopril 2.5 MG TAB PO SCH (08:25)
[2019-05-03] MEDS: HumuLIN 70/30 (300 UNITS/3 ML VIAL) SC SCH ×2 (08:25→20:34)
[2019-05-03] MEDS: Famotidine 20 MG TAB PO SCH (08:25)
[2019-05-03] MEDS: Furosemide 40 MG TAB PO SCH (08:25)
--- NOTE | 2019-05-03 10:53 | PRG ---
DATE OF SERVICE: 05/03/2019 SUBJECTIVE: Patient was seen and examined at bedside and overnight events noted. Patient denies any shortness of breath or chest pain or palpitation. No history of nausea or vomiting or diarrhea or fever or chills or cramps. OBJECTIVE: GENERAL: This is a well-built male, in no apparent distress. VITAL SIGNS: Temperature 98.1. Heart rate 79. Respiratory rate 20. Blood pressure 118/71. HEENT: Atraumatic, normocephalic. Oral mucosa is moist NECK: Supple. CARDIOVASCULAR: S1, S2 heard. Rate and rhythm regular. RESPIRATORY: Clear to auscultation. GASTROINTESTINAL: Abdomen is soft. MUSCULOSKELETAL: No tenderness. No edema. DERMATOLOGIC: No skin rash. NEUROLOGIC: Alert and awake and oriented X3. No focal neurologic deficits. Moving all the extremities. PSYCHIATRIC: Mood and affect normal. LABORATORY DATA: No labs done today. ASSESSMENT AND PLAN: 1. End-stage renal disease. Continue dialysis as tolerated. 2. Edema, controlled. 3. Hypertension. 4. Anemia. Plan to continue on dialysis as tolerated. Job ID: [id number]
[2019-05-03] MEDS: Tamsulosin HCl 0.4 MG CAP PO SCH (12:22)
[2019-05-03 15:20] LABS: Anion Gap 15 mmol/L (10-20); BUN (Urea Nitrogen) 36 mg/dL (8.9-20.6); CRP (Inflammatory) 7.38 mg/dL (= or < 0.5); Calc. Creatinine Clearance 34 mL/min (70-130); Calcium 9.3 mg/dL (7.8-10.44); Carbon Dioxide 25 mmol/L (22-29); Chloride 102 mmol/L (98-107); Estimated GFR-MDRD 15; Glucose 142 mg/dL (70-105); Potassium 4.9 mmol/L (3.5-5.1); Sodium 137 mmol/L (136-145)
[2019-05-03] MEDS: diphenhydrAMINE 25 MG CAP PO PRN (20:32)
[2019-05-04] MEDS: HYDROcodone/Acetaminophen 10/325 mg Tablet PO PRN ×5 (00:21→18:44)
[2019-05-04] MEDS: Fentanyl 100 MCG/2 ML VIAL SLOW IVP PRN ×4 (02:06→17:02)
[2019-05-04] MEDS: Piperacillin/Tazobactam 2.25 GM in Sodium Chloride 0.9% 100 ML IVPB SCH ×2 (05:05→15:16)
--- NOTE | 2019-05-04 06:01 | PDOC.FM ---
- Subjective Subjective: Patient doing well this morning. Per nursing report there was a complication overnight with patient's midline becoming occluded, though night nurse believes this is likely due to the line becoming kinked; will have day nursing re-asses. Patient has also had some issues with his chronic urinary retention, though patient can usually void with coaching and trying to void with standing. - Objective Vital Signs & Weight: Vital Signs (12 hours) Temp Pulse Resp BP Pulse Ox 05/03/19 20:00 98.3 F 84 16 104/69 97 Weight Admit Weight 117.934 kg Weight 112.49 kg Most Recent Monitor Data Heart Rate from ECG 76 NIBP 125/69 Respiration from ECG 16 I&O: 05/02/19 05/03/19 05/04/19 06:59 06:59 06:59 Intake Total 2700 2080 960 Output Total 3475 1100 Balance -775 980 960 Result Diagrams: 05/02/19 18:08 05/03/19 14:25 Phys Exam - Physical Examination Constitutional: NAD HEENT: moist MMs, sclera anicteric Neck: supple, full ROM Respiratory: no wheezing, clear to auscultation bilateral Cardiovascular: RRR, no significant murmur Gastrointestinal: soft, non-tender colostomy in place Musculoskeletal: no edema, pulses present Neurological: normal sensation, moves all 4 limbs Psychiatric: normal affect, A&O x 3 Deviation from normal: wound vac in place, c/d/i Dx/Plan (1) CAD (coronary artery disease) Code(s): I25.10 - ATHSCL HEART DISEASE OF [place] CORONARY ARTERY W/O ANG PCTRS Status: Chronic (2) Diabetes mellitus Code(s): E11.9 - TYPE 2 DIABETES MELLITUS WITHOUT COMPLICATIONS Status: Chronic (3) ESRD (end stage renal disease) on dialysis Code(s): N18.6 - END STAGE RENAL DISEASE; Z99.2 - DEPENDENCE ON RENAL DIALYSIS Status: Chronic (4) Hypotension Status: Resolved (5) CORNELIUS (obstructive sleep apnea) Code(s): G47.33 - OBSTRUCTIVE SLEEP APNEA (ADULT) (PEDIATRIC) Status: Chronic (6) Pulmonary embolism Code(s): I26.99 - OTHER PULMONARY EMBOLISM WITHOUT ACUTE COR PULMONALE Status : Acute (7) Sacral osteomyelitis Code(s): M46.28 - OSTEOMYELITIS OF [place], SACRAL AND SACROCOCCYGEAL REGION Status: Acute (8) Symptomatic anemia Code(s): D64.9 - ANEMIA, UNSPECIFIED Status: Acute - Plan Plan: 48 y/o M h/o PE, ESRD on HD, CHF, DMII admitted to medical inpatient for further treatment and evaluation of PE, Hypotension, sx anemia, and stage 4 decubitus ulcer, found to have sacral osteo on MRI. #Sacral Decubitus Ulcer, stage 4, s/p multiple debridements, stable for discharge - Dr. Allred, gen surg, consulted, debridement on 04/13, 04/19, and 04/20, 04/24, bedside 05/01, appreciate further recs. Necrotic tissue requiring wide excision. Wound vac in place. Diverting colostomy in place. Surgery re- evaluated patient 04/26, rec continued wound vac changes for now. - MRI pelvis concern for osteitis vs early osteo - Wound Cx x2 E. Coli. Dr. Cornejo consulted recommends IV zosyn 2.25 q 8hr, on HD days, additional 0.75 g to be given after dialysis, end date of tx = Jun 01, weekly cbc, crp. Patient had IJ central line placed surgically 04/24. Appreciate recommendations. - CRP down from 17 to 10, still elevated and will continue to monitor weekly - Zosyn started (04/25), continue. Meropenem (06/23-04/25). Rocephin (04/17-04/22). zosyn (04/11-04/17), vanc (04/11-04/20). 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 with wound vac; rec possible gen surg /plastics need in the future for muscle flap -spoke with Valeria at [facility], on 05/02; she stated that zosyn is not on their formulary and their pharmacist is recommending meropenem; also received call from yesterday stating [facility] is requesting PICC line -conversed with Dr. Cornejo 05/02, recommended either zosyn or unasyn for antibiotic coverage due to enterococcus resistance to meropenem, and he recommended against the PICC due to the patient's ESRD and will need veins for future HD access -spoke with pharmacy at [facility] 05/03, accepted zosyn for patient; requested patient have PICC line or midline; spoke with Dr. Stoner 05/03 and he recommended midline -midline placed 05/03, will discuss with day-nursing about patency -per CM notes, patient accepted to [facility] 05/03, awaiting transfer #Symptomatic anemia->combination of beta thalassemia, acute blood loss, and anemia of chronic disease 2/2 ESRD, stable for discharge - s/p 7 unit pRBC; 04/11, 04/14, 04/15, 04/18, and 3u 04/19. 2 u plt;04/18, . 2u FFP; 04/20 x2 - Hb 8.0 04/30, stable - Hb electrophoresis - positive for beta thalassemia minor - started on epogen by nephro #Pulmonary Embolism, stable for discharge - [facility] for cholecystectomy, pt intubated and sedated for extended period of time. - Developed PE, sacral decubitus ulceration over course of stay - transitioned from heparin to home eilquis 05/01 #Urinary Retention, stable for discharge - Symptoms of urinary overflow, Consistently elevated post-void residuals - on flomax daily, tapia placed 04/19-04/21. - continued monitoring with bladder scans, encouragement of voids; prn straight cath as needed #Chronic Constipation, s/p diverting colostomy, stable for discharge - good bowel sounds, passing gas, ostomy clean, pink. Dressing c/d/i. -encouraged patient to continue miralax #HTN , stable for discharge - initially held 2/2 hypotension, restarted coreg, imdur, norvasc. Will monitor. - Consider restarting lisinopril if warranted. # ESRD on HD, stable for discharge - HD every T,TR,Sat. On HD since 2016 - Osteology Teacher consulted, will cont dialysis, appreciate recs. Monitoring lytes -3.5L removed 04/29 #DM II, insulin dependent, stable for discharge - Hyperglycemia protocol, SSI, ACHS accuchecks. CC diet - 30u 70/30 insulin HS, 35u 70/30 qam - patient's fasting glucose 172 this am #CORNELIUS, stable for discharge - CPAP QHS, CPAP HS #Hx of CAD, with MO, stable for discharge - S/P X3 stents. MO in 2018. Continue effient and lasix Code Status: Full code Diet: CC/renal-high protein DVT ppx: PO eliquis BID Dispo: Admitted to medical inpatient. Debridement x4 + bedside debridement 05/01 , sacral MRI concern for osteo, surgery rec continued wound vac changes. Cont IV abx, will need 6-8 weeks end date 06/01. PO pain meds. Stable to transfer to [facility] at this time on IV zosyn through midline. Addendum - Attending - Attending Attestation Date/Time: 05/04/19 2995 I personally evaluated the patient and discussed the management with Dr. oHllis. I agree with the History, Examination, Assessment and Plan documented above with any addition or exceptions noted below. Patient will liekly d/c to [facility] after dialysis. May require I/O cath in the future.
[2019-05-04] MEDS: Mometasone 100 MCG HFA INHALER INH SCH ×2 (06:44→19:15)
--- NOTE | 2019-05-04 09:20 | PRG ---
DATE OF SERVICE: 05/04/2019 SUBJECTIVE: Patient was seen and examined at bedside and overnight events noted. Patient denies any shortness of breath or chest pain or palpitation. No history of nausea or vomiting or diarrhea or fever or chills or cramps. OBJECTIVE: GENERAL: This is a well-built male, in no apparent distress. VITAL SIGNS: Temperature 97. Heart rate 87. Respiratory rate 20. Blood pressure 117/75. HEENT: Atraumatic, normocephalic. Oral mucosa is moist NECK: Supple. CARDIOVASCULAR: S1, S2 heard. Rate and rhythm regular. RESPIRATORY: Clear to auscultation. GASTROINTESTINAL: Abdomen is soft. MUSCULOSKELETAL: No tenderness. No edema. DERMATOLOGIC: No skin rash. NEUROLOGIC: Alert and awake and oriented X3. No focal neurologic deficits. Moving all the extremities. PSYCHIATRIC: Mood and affect normal. LABORATORY DATA: No labs done today. ASSESSMENT AND PLAN: 1. End-stage renal disease. Continue dialysis Wednesday, , Wednesday. 2. Edema, we will remove fluid. 3. History of hypertension. 4. History of anemia. 5. Plan to continue dialysis Wednesday, , Wednesday as tolerated. Job ID: [id number]
[2019-05-04] MEDS ORDERED: Heparin 10,000 UNITS/ 10 ML VIAL ONE (09:30)
[2019-05-04] MEDS: Folic Acid/Vit B Comp W-C PO SCH (09:40)
[2019-05-04] MEDS: Sevelamer Carbonate 800 MG TAB PO SCH ×3 (09:42→18:43)
[2019-05-04] MEDS: Metoclopramide HCl 10 MG TAB PO SCH ×3 (09:42→18:43)
[2019-05-04] MEDS: Senokot S 8.6-50 MG TAB PO SCH (09:42)
[2019-05-04] MEDS: EPOETIN ALFA-EPBX (ESRD) 10,000 UNIT/ML VIAL IVP SCH (12:12)
[2019-05-04] MEDS: Tamsulosin HCl 0.4 MG CAP PO SCH (14:44)
[2019-05-04] MEDS: Furosemide 40 MG TAB PO SCH ×2 (14:45→15:43)
[2019-05-04] MEDS: Gabapentin 300 MG CAP PO SCH (14:45)
[2019-05-04] MEDS: Carvedilol 25 MG TAB PO SCH (14:45)
[2019-05-04] MEDS: Lisinopril 2.5 MG TAB PO SCH (14:46)
[2019-05-04] MEDS: Isosorbide Mononitrate (ER) 30 MG TAB PO SCH (14:47)
[2019-05-04] MEDS: Apixaban 5 MG TAB PO SCH (14:47)
[2019-05-04] MEDS: Amlodipine 10 MG TAB PO SCH (14:51)
[2019-05-04] MEDS: HumuLIN 70/30 (300 UNITS/3 ML VIAL) SC SCH (15:17)
[2019-05-04] MEDS: Famotidine 20 MG TAB PO SCH (15:43)
[2019-05-04] MEDS: Polyethylene Glycol 3350 17 GM Packet PO SCH (15:48)
[2019-05-04] MEDS: Ergocalciferol 1.25 MG(50,000 UNITS) CAP PO SCH (15:49)
[2019-05-04 18:19] LABS: Platelet Count 308 thou/uL (130-400)
[2019-05-04 20:13] VITALS: BP 104/64; TEMP 98.9
--- NOTE | 2019-05-05 14:34 | DIS ---
DATE OF ADMISSION: 04/10/2019 DATE OF DISCHARGE: 05/04/2019 ADMITTING RESIDENT: Shawnee Maciel DO ADMITTING ATTENDING: Maryam Arreola MD DISCHARGE ATTENDING: Tessy Blake MD DISCHARGE RESIDENT: Patricia Hollis MD CONSULTS: Infectious Disease, Surgery, Nephrology, Hyperbaric, Case Management , OT, PT, and Wound Care. PROCEDURES PERFORMED: Four sacral debridements in the OR and one at bedside, Morales catheter placed in left IJ in the OR. PRIMARY DIAGNOSES: Stage IV sacral decubitus ulcer; symptomatic anemia; pulmonary embolism; urinary retention; and chronic constipation, status post colostomy. SECONDARY DIAGNOSES: Beta thalassemia minor; hypertension; end-stage renal disease, on hemodialysis; insulin-dependent type 2 diabetes; obstructive sleep apnea; history of coronary artery disease with myocardial infarction. DISCHARGE MEDICATIONS: 1. Albuterol 2 puff q.6 hours p.r.n. 2. Amlodipine 10 mg p.o. daily. 3. Eliquis 5 mg p.o. b.i.d. 4. Dulcolax 10 mg p.o. daily p.r.n. 5. Tums 1000 mg p.o. q.4 hours p.r.n. 6. Carvedilol 25 mg p.o. b.i.d. 7. Docusate 100 mg p.o. b.i.d. p.r.n. 8. Epoetin nabil 10,000 units IVP Wednesday, , and Wednesday. 9. Drisdol 1.25 mg p.o. q.7 days. 10. Famotidine 20 mg p.o. daily. 11. Fluticasone 110 mcg inhaled b.i.d. 12. Folic acid/vitamin B complex 1 tablet p.o. daily. 13. Furosemide 40 mg p.o. daily. 14. Gabapentin 300 mg p.o. at bedtime. 15. Hydrocodone 10/325 two tablets p.o. q.4 hours p.r.n. 16. Humulin 70/30 of 35 units subcutaneously in a.m. 17. Humulin 70/30 of 30 units subcutaneously at bedtime. 18. Ipratropium bromide 0.5 mg q.6 hours nebulized. 19. Isosorbide mononitrate 30 mg p.o. daily. 20. Lactulose 30 g p.o. t.i.d. p.r.n. 21. Lisinopril 2.5 p.o. daily. 22. Metoclopramide 10 mg p.o. a.c. and at bedtime. 23. Nitroglycerin 0.4 mg sublingual q.5 minutes p.r.n. 24. Zosyn 0.75 g IV after hemodialysis treatments until June 01, 2019. 25. Zosyn 2.25 g IV q.8 hours until June 01, 2019. 26. Polyethylene glycol 17 g p.o. daily. 27. Senokot 1 tablet p.o. b.i.d. 28. Sevelamer 800 mg p.o. t.i.d. with meals. 29. Tamsulosin 0.4 mg p.o. daily. 30. Benadryl 1 capsule p.o. b.i.d. DISCONTINUED MEDICATIONS: 1. Heparin. 2. Fentanyl. 3. CHOCOLATE REFINING ROLLER pump. 4. Tramadol. HISTORY OF PRESENT ILLNESS/HOSPITAL COURSE: The patient is a 48-year-old male with past medical history of diabetes, on insulin; obstructive sleep apnea; peripheral vascular disease; CAD; and hypertension with recent hospitalization for cholecystectomy with prolonged intubation postoperatively at [facility]. Over tat time, he developed end-stage renal disease, a stage IV sacral ulcer, and overall functional decline. He was recently diagnosed with a pulmonary embolus and started on Eliquis 5 mg b.i.d. prior to admission. He was brought to the ED after developing chest pain and subsequently having low blood pressures at his shelter unit after being given nitroglycerin. In the ED, he was found to have elevated troponins in the setting of end-stage renal disease, lactate 2.7, hemoglobin 7.9, hematocrit 24.3. CTA showed right lower lobe pulmonary emboli. A central line was placed. He was admitted for treatment for his PE, sacral ulcer, atypical chest pain, symptomatic anemia, and end-stage renal disease. He was transfused with 1 unit of packed red blood cells at the time of admission. Throughout the hospitalization, the patient had 4 sacral debridements in the OR , 1 at bedside, with a wound VAC put in place. He had several different antibiotics throughout the hospitalization while the cultures and sensitivities were pending , and ultimately, the patient was started on Zosyn on 04/25, to which the patient had the best clinical response. During the hospitalization, the patient had symptomatic anemia and received a total of 7 units packed red blood cells, 2 units FFP, and 2 units platelets. He also continued his dialysis treatment and was followed by Nephrology. His chronic medical problems were followed and treated accordingly. The patient did have some urinary retention throughout the hospitalization, at one time requiring a Busby catheter and at other times requiring straight catheterization. Toward the end of his hospitalization, Surgery had signed off clearing the patient for discharge, and paperwork was started for transfer back to the [facility]. The patient requires care at the [facility] for IV antibiotics, wound VAC, colostomy care, and CPAP at night with oxygen as needed. The patient had a mid[facility] before [facility], and the Morales catheter was removed. The patient was evaluated on the day of discharge and found to be stable for transfer to the [facility]. This is a summary of the patient's hospital stay. For more detailed summary, please see the patient's hospital records. DISPOSITION: Guarded. DISCHARGE INSTRUCTIONS: 1. Location: [facility]. 2. Diet: Diabetic, heart healthy, renal high-protein. 3. Activity: As tolerated. 4. Followup: [facility] with [facility] for daily IV antibiotics until June 01, 2019, weekly CBC/CRP monitoring, and for 3 times per week dialysis as well as for care of wound VAC, colostomy, CPAP and oxygen use as needed at night. Job ID: [id number] [facility]
--- NOTE | 2019-05-06 08:16 | PQF ---
FIOR BOYER Asad MD [id number] CLINICAL DOCUMENTATION CLARIFICATION FORM: POST DISCHARGE Addendum to original discharge summary date: i did not do the discharge summary__ (This form is maintained as a part of the permanent medical record) 2014 [employer]. All Rights Reserved [facility]
--- NOTE | 2019-05-06 13:44 | EKG ---
Test Reason : Blood Pressure : / mmHG Vent. Rate : 096 BPM Atrial Rate : 096 BPM P-R Int : 198 ms QRS Dur : 096 ms QT Int : 368 ms P-R-T Axes : 083 016 078 degrees QTc Int : 464 ms Normal sinus rhythm Normal ECG Confirmed by GRETTA WESTFALL ([id number]), editorial manager BRITTANI DUNHAM ([id number]) on 05/06/2019 1:43:43 PM Referred By: Confirmed By:GRETTA WESTFALL
== END 2019-05-04 20:20 | disposition short-term general hospital (02) | DRG 579 ==
LOC: ERS 20:17 → EEVIPCON 20:17 → ERHOLD 23:50 → T4-A 04-11 14:35
PROVIDERS: ADMIT Family Medicine; ATTEND Family Medicine
PROC: 30233R1 Transfusion of Nonautologous Platelets into Peripheral Vein, Percutaneous Approach (ICD-10-PCS; 2019-04-11)
PROC: 0KBP0ZZ Excision of Left Hip Muscle, Open Approach (ICD-10-PCS; principal; 2019-04-12)
PROC: 0HB6XZZ Excision of Back Skin, External Approach (ICD-10-PCS; 2019-04-18)
PROC: 30233K1 Transfusion of Nonautologous Frozen Plasma into Peripheral Vein, Percutaneous Approach (ICD-10-PCS; 2019-04-18)
PROC: 0D1L0Z4 Bypass Transverse Colon to Cutaneous, Open Approach (ICD-10-PCS; 2019-04-19)
PROC: 0KBP0ZZ Excision of Left Hip Muscle, Open Approach (ICD-10-PCS; 2019-04-19)
PROC: 0KBN0ZZ Excision of Right Hip Muscle, Open Approach (ICD-10-PCS; 2019-04-19)
PROC: 02PYX3Z Removal of Infusion Device from Great Vessel, External Approach (ICD-10-PCS; 2019-04-19)
PROC: 02HV33Z Insertion of Infusion Device into Superior Vena Cava, Percutaneous Approach (ICD-10-PCS; 2019-04-19)
PROC: 30233N1 Transfusion of Nonautologous Red Blood Cells into Peripheral Vein, Percutaneous Approach (ICD-10-PCS; 2019-04-20)
PROC: 0KBN0ZZ Excision of Right Hip Muscle, Open Approach (ICD-10-PCS; 2019-04-24)
PROC: 0QB10ZZ Excision of Sacrum, Open Approach (ICD-10-PCS; 2019-04-24)
PROC: 02HV33Z Insertion of Infusion Device into Superior Vena Cava, Percutaneous Approach (ICD-10-PCS; 2019-04-24)
DX: L89.154 Pressure ulcer of sacral region, stage 4 (principal); I26.99 Other pulmonary embolism without acute cor pulmonale; N18.6 End stage renal disease; I13.2 Hypertensive heart and chronic kidney disease with heart failure and with stage 5 chronic kidney disease, or end stage renal disease; M46.28 Osteomyelitis of vertebra, sacral and sacrococcygeal region; D68.9 Coagulation defect, unspecified; D62 Acute posthemorrhagic anemia; I95.2 Hypotension due to drugs; E11.9 Type 2 diabetes mellitus without complications; G47.33 Obstructive sleep apnea (adult) (pediatric); I73.9 Peripheral vascular disease, unspecified; I25.10 Atherosclerotic heart disease of native coronary artery without angina pectoris; E83.39 Other disorders of phosphorus metabolism; D63.1 Anemia in chronic kidney disease; K59.09 Other constipation; E83.52 Hypercalcemia; Z79.4 Long term (current) use of insulin; Z90.49 Acquired absence of other specified parts of digestive tract; I25.2 Old myocardial infarction; Z95.5 Presence of coronary angioplasty implant and graft; Z89.421 Acquired absence of other right toe(s); Z99.2 Dependence on renal dialysis; Z91.013 Allergy to seafood
CPT/HCPCS: 36415; 36416; 36430; 36556; 70250; 71045; 71275; 72195; 74018; 74177; 80048; 80053; 80202; 82274; 82306; 82340; 82553; 82607; 82652; 82728; 82746; 83010; 83021; 83540; 83550; 83605; 83615; 83735; 83970; 84100; 84134; 84145; 84165; 84166; 84443; 84484; 85014; 85018; 85025; 85046; 85049; 85060; 85520; 85610; 85652; 85730; 86140; 86780; 86803; 86850; 86900; 86901; 87040; 87070; 87076; 87077; 87186; 87205; 87340; 87389; 88304; 88305; 88312; 90935; 93005; 94760; 96365; 96367; 96374; 96376; G0103; G0257; J0131; J0696; J1644; J1815; J2001; J2185; J2270; J2370; J2405; J2543; J2550; J2704; J2997; J3010; J3360; J3370; J3490; J7050; P9016; P9035; P9047; P9059; Q0162; Q0163; Q5105; Q9966; S0028